=== PATIENT | female | born 1955 | race Caucasian/White ===

== ENCOUNTER 2021-03-29 12:07 | Outpatient (REF) | payer MEDICARE, SELFPAY ==
--- NOTE | ~2021-03-29 | XR_ITS ---
EXAMINATION: XR KNEE, RIGHT CLINICAL INFORMATION: Pain in right knee. COMPARISON: None TECHNIQUE: Upright AP and lateral views of the right knee. FINDINGS: There is no fracture or dislocation. There is a trace joint effusion. There is a small enthesophyte at the quadriceps insertion site on the patella. There are no arthritic changes. XR/XR knee RT 2V IMPRESSION: Trace joint effusion. No arthritic changes.
[2021-03-29 14:20] LABS: Alanine Aminotransferase 15 U/L (0-31); Albumin Level 4.4 g/dL (3.5-5.0); Alkaline Phosphatase 100 U/L (39-117); Anion Gap 14 (12-20); Aspartate Amino Transferase 16 U/L (5-31); Bilirubin Total 0.7 mg/dL (0.0-1.0); Blood Urea Nitrogen 20 mg/dL (9-16); Calcium 9.3 mg/dL (8.4-10.2); Carbon Dioxide 24 mmol/L (22-29); Chloride 108 mmol/L (96-108); Cholesterol 259 mg/dL; Estimated Glomerular Filt Rate > 60; Glucose Fasting 88 mg/dL (60-99); HDL Cholesterol 50 mg/dL; LDL Cholesterol Calculated 179 mg/dl; Potassium 4.7 mmol/L (3.3-5.1); Sodium 141 mmol/L (135-145); Total Protein 7.5 g/dL (6.5-8.0); Triglycerides 152 mg/dL
[2021-03-29 14:52] LABS: Folate > 20.0 ng/mL (> or = 4.0); Vitamin B12 > 2000 pg/mL (200-900)
== END 2021-03-29 12:08 | disposition home or self-care (01) ==
LOC: HO.HMGCLDS 12:07
PROVIDERS: PCP Internal Medicine; Visit Provider Internal Medicine
DX: M25.561 Pain in right knee (principal); E03.9 Hypothyroidism, unspecified; E78.5 Hyperlipidemia, unspecified; F41.9 Anxiety disorder, unspecified; I10 Essential (primary) hypertension
CPT/HCPCS: 36415; 73560; 80053; 80061; 82607; 82746

== ENCOUNTER 2022-03-20 12:14 | Outpatient (REF) | payer MEDICARE, SELFPAY ==
[2022-03-20 13:47] LABS: MANUAL DIFF FLAG NO
[2022-03-20 13:58] LABS: Basophils Absolute Auto 0.1 X10*3/uL (0.0-0.2); Basophils Percent Auto 0.7 % (0-2); Eosinophils Absolute Auto 0.5 X10*3/uL (0.0-0.4); Eosinophils Percent Auto 5.3 % (0-4); Hematocrit 40.9 % (37.0-47.0); Hemoglobin 13.3 g/dl (12.0-16.0); Imm Gran Abs Auto 0.04 X10*3/uL (0.00-0.03); Imm Gran Pct Auto 0.5 % (0.0-0.4); Lymphocytes Absolute Auto 2.3 X10*3/uL (1.2-4.9); Lymphocytes Percent Auto 25.8 % (20-40); Mean Corpuscular HGB Conc 32.5 g/dl (31.0-35.0); Mean Corpuscular Hemoglobin 28.9 pg (27.0-33.0); Mean Corpuscular Volume 88.9 fL (80.0-98.0); Mean Platelet Volume 10.2 fL (9.4-12.3); Monocytes Absolute Auto 0.7 X10*3/uL (0.1-1.2); Monocytes Percent Auto 7.7 % (2-11); Neutrophils Absolute Auto 5.3 x10*3/uL (2.0-8.3); Platelet Count 416 X10*3/uL (160-400); Red Cell Distribution Width 14.7 % (11.0-16.0); White Blood Count 8.7 X10*3/uL (4.8-10.8)
[2022-03-20 15:07] LABS: Alanine Aminotransferase 14 U/L (0-31); Albumin Level 4.3 g/dL (3.5-5.0); Alkaline Phosphatase 109 U/L (39-117); Anion Gap 13 (12-20); Aspartate Amino Transferase 14 U/L (5-31); Bilirubin Total 0.7 mg/dL (0.0-1.0); Blood Urea Nitrogen 14 mg/dL (9-16); Calcium 9.3 mg/dL (8.4-10.2); Carbon Dioxide 25 mmol/L (22-29); Chloride 108 mmol/L (96-108); Estimated Glomerular Filt Rate > 60; Glucose Random 95 mg/dL (60-115); Potassium 4.1 mmol/L (3.3-5.1); Sodium 142 mmol/L (135-145); TSH reflex Free T4 1.31 uIU/mL (0.32-4.0)
[2022-03-20 17:20] LABS: B Type Natriuretic Peptide 27 pg/mL (<100)
== END 2022-03-20 12:15 | disposition home or self-care (01) ==
LOC: HO.HMGCLDS 12:14
PROVIDERS: PCP Internal Medicine; Visit Provider Internal Medicine
DX: R05.9 Cough, unspecified (principal); R06.09 Other forms of dyspnea; J44.9 Chronic obstructive pulmonary disease, unspecified
CPT/HCPCS: 36415; 80053; 83880; 84443; 85025

== ENCOUNTER 2022-11-01 09:44 | Outpatient (AMB) | payer MEDICARE, SELFPAY ==
--- NOTE | 2022-11-01 10:07 | AM.OFFWIN_ITS ---
Intake Vital Signs 11/01/22 10:10 Height 4 ft 11.5 in BP 136/78 Blood Pressure Location Rt brachial Position Sitting Pulse 108 H Pulse Source Pulse Oximeter Temp 97.6 F Temp Source Temporal Artery Scan Pulse Oximetry (%) 97 Oxygen Delivery Method Room Air Intake Visit Reasons: EP, Right knee inflammation Intake Note: Pt is here c/o right knee pain for the last week. No falls or injuries. Patient Tobacco Use Status: Current everyday Tobacco user Allergies atorvastatin [Lipitor] Allergy (Unknown, Verified 11/01/22 10:31) nausea bupropion [Wellbutrin] Allergy (Unknown, Verified 11/01/22 10:31) Rash levofloxacin [Levaquin] Allergy (Unknown, Verified 11/01/22 10:31) Rash Sulfa (Sulfonamide Antibiotics) Allergy (Unknown, Unverified 11/01/22 10:31) burning sensation red burn manuel amitriptyline Adverse Reaction (Unknown, Verified 11/01/22 10:31) headaches topiramate [Topamax] Adverse Reaction (Unknown, Verified 11/01/22 10:31) sleepiness Medication List - Last Reconciled 11/01/22 by Cristofer Mckenna MD albuterol sulfate 90 mcg/actuation (Ventolin HFA) 2 puffs PO Q6H PRN betamethasone dipropionate 0.05% topical cyanocobalamin (vitamin B-12) 100 mcg (0.1 mL) IM QWEEK ergocalciferol (vitamin D2) 1,250 mcg PO QWEEK wszhdfkqane-qcpvfvicr-pxjlnvhi 200-62.5-25 mcg (Trelegy Ellipta) 1 inh inhalation DAILY folic acid 1 mg PO DAILY meloxicam 15 mg PO DAILY metoprolol succinate ER 50 mg PO DAILY montelukast 10 mg PO DAILY ondansetron HCl 4 mg PO Q8H PRN ropinirole 0.5 mg (2 x 0.25 mg) PO BEDTIME rosuvastatin (Crestor) 10 mg PO DAILY Synthroid (levothyroxine) 88 mcg PO DAILY NS Do you need a note to return to daycare/school/sports/work: No HPI EP, Right knee inflammation HPI Details 67-year-old female presents to the office for a sick visit. Patient is reporting knee pain for the past week. Prior to the onset of pain, patient was reporting clicking sounds in the knee. Subsequently she started having pain which has gotten worse. She uses a cane for back pain. [facility] [place] Medical History (Updated 11/01/22 @ 10:18 by Cristofer Mckenna MD) Anxiety Carotid stenosis, bilateral COPD (chronic obstructive pulmonary disease) Cough Diastolic CHF DVT (deep venous thrombosis) HTN (hypertension) Hyperlipidemia Hypothyroidism Knee pain, right Leg pain Lung nodule Migraine headache with aura Tension headache Vitamin B12 deficiency Vitamin D deficiency Surgical History (Updated 04/23/22 @ 12:52 by Josee Hadley MD) H/O colonoscopy History of esophagogastroduodenoscopy (EGD) History of laryngoscopy Family History Father HTN (hypertension) Mother COPD (chronic obstructive pulmonary disease) HTN (hypertension) Social History Housing: House Patient Tobacco Use Status: Current everyday Tobacco user Tobacco use type: Cigarette Cigarettes Per Day: 4 e-Cigarette/Vaping Use: Never Used Current occupational status: retired Cognitive needs: No Hearing needs: No Vision needs: Yes Physical Exam Vital Signs: Last Vital Signs Temp 97.6 F 11/01/22 10:10 Pulse 108 H 11/01/22 10:10 BP 136/78 11/01/22 10:10 Pulse Ox 97 11/01/22 10:10 Oxygen Delivery Method Room Air 11/01/22 10:10 Extrem Other: Right knee: Suprapatellar effusion. Joint line discomfort. Pain on flexion. Assessment & Plan Assessment & Plan (1) Unilateral osteoarthritis of knee: Code(s): M17.10 - Unilateral primary osteoarthritis, unspecified knee Plan: X-ray images were personally reviewed by me. Knee brace provided. Anti- inflammatories called in. If symptoms not better to follow-up here. Coding Level of Care Code Est Pt Level 4 (52497) Diagnoses Unilateral osteoarthritis of knee M17.10
[2022-11-01 10:10] VITALS: BP 136/78; PULSE 108; TEMP 36.4; O2SAT 97
== END 2022-11-01 11:33 | disposition home or self-care (01) ==
PROVIDERS: PCP Internal Medicine; Visit Provider Internal Medicine
DX: M17.10 Unilateral primary osteoarthritis, unspecified knee (principal)
CPT/HCPCS: 99214

== ENCOUNTER 2022-11-01 10:27 | Outpatient (REF) | payer MEDICARE, SELFPAY ==
--- NOTE | ~2022-11-01 | XR_ITS ---
EXAMINATION: XR KNEE, RIGHT CLINICAL INFORMATION: Primary osteoarthritis. COMPARISON: None available. TECHNIQUE: Four views of the right knee. FINDINGS: No fracture or subluxation. Compartmental joint spaces are maintained. Enthesophyte formation of the patella. Moderate suprapatellar joint effusion. XR/XR knee RT 4V IMPRESSION: Moderate joint effusion. No significant arthritic changes.
== END 2022-11-01 10:28 | disposition home or self-care (01) ==
LOC: HO.HMGCX 10:27
PROVIDERS: PCP Internal Medicine; Visit Provider Internal Medicine
DX: M17.11 Unilateral primary osteoarthritis, right knee (principal)
CPT/HCPCS: 73564

== ENCOUNTER 2023-05-09 07:56 | Outpatient (AMB) | payer MEDICARE, SELFPAY ==
[2023-05-09 08:02] VITALS: BP 166/100; PULSE 105; O2SAT 95; BMI 34.2
--- NOTE | 2023-05-09 08:02 | MHC.PC.OV ---
Vital Signs 05/09/23 08:02 Height 4 ft 11.5 in Weight 172 lb BMI 34.2 BP 166/100 H Blood Pressure Location Lt brachial Position Sitting Pulse 105 H Pulse Source Pulse Oximeter Pulse Oximetry (%) 95 Oxygen Delivery Method Room Air Intake Visit Reasons: Followup Intake Note: Pt is here today for a follow up visit. Allergies atorvastatin [Lipitor] Allergy (Unknown, Verified 05/09/23 08:06) nausea bupropion [Wellbutrin] Allergy (Unknown, Verified 05/09/23 08:06) Rash levofloxacin [Levaquin] Allergy (Unknown, Verified 05/09/23 08:06) Rash Sulfa (Sulfonamide Antibiotics) Allergy (Unknown, Unverified 05/09/23 08:06) burning sensation red burn manuel metoprolol Adverse Reaction (Intermediate, Verified 05/09/23 15:24) Nausea amitriptyline Adverse Reaction (Unknown, Verified 05/09/23 08:06) headaches topiramate [Topamax] Adverse Reaction (Unknown, Verified 05/09/23 08:06) sleepiness Medication List - Last Reconciled 05/09/23 by Josee Hadley MD albuterol sulfate 90 mcg/actuation (Ventolin HFA) 2 puffs PO Q6H PRN betamethasone dipropionate 0.05% topical cyanocobalamin (vitamin B-12) 100 mcg (0.1 mL) IM QWEEK ergocalciferol (vitamin D2) 1,250 mcg PO QWEEK rgenovnvmfk-uvqjccnbo-uwqedroi 200-62.5-25 mcg (Trelegy Ellipta) 1 inh inhalation DAILY folic acid 1 mg PO DAILY meloxicam 15 mg PO DAILY montelukast 10 mg PO DAILY ondansetron HCl 4 mg PO Q8H PRN ropinirole 0.5 mg (2 x 0.25 mg) PO BEDTIME rosuvastatin (Crestor) 10 mg PO DAILY Synthroid (levothyroxine) 88 mcg PO DAILY NS Tobacco use date assessed: 05/09/23 Fall risk assessment: No Falls in past year Last assessed Fall Risk: 05/09/23 Dental Screening Dental Screen Date: 05/09/23 Did you have a dental visit in the last 12 months?: Yes Did you have a dental problem in the last 6 months where you did not have access to dental care?: No Was dental information given to patient?: Patient has dentist HPI Followup HPI Details Pt presents for f/u COPD, hyperlipid, hypothyroid, stable on meds. Patient is stop taking metoprolol because of nausea. [facility] Medical History Vitamin D deficiency Cough Knee pain, right DVT (deep venous thrombosis) Leg pain Vitamin B12 deficiency Carotid stenosis, bilateral Diastolic CHF Anxiety Tension headache Migraine headache with aura HTN (hypertension) Hyperlipidemia Hypothyroidism Lung nodule COPD (chronic obstructive pulmonary disease) Surgical History History of esophagogastroduodenoscopy (EGD) H/O colonoscopy History of laryngoscopy Family History Father HTN (hypertension) Mother COPD (chronic obstructive pulmonary disease) HTN (hypertension) Social History Housing: House Patient Tobacco Use Status: Current everyday Tobacco user Tobacco use type: Cigarette Cigarettes Per Day: 4 e-Cigarette/Vaping Use: Never Used Current occupational status: retired Cognitive needs: No Hearing needs: No Vision needs: Yes Questionnaire PHQ-9 Over the last 2 weeks, how often have you been bothered by any of the following problems? [id number] - PHQ-9 Billing: Patient declined-do not bill Source: Developed by Drs. Maciel Millan, Brittany Tompkins, Ashok Kendrick and colleagues, with an educational rosalia from [employer]. Thrive Questionnaire Date Thrive assessed: 05/09/23 I am a: Patient What is your living situation today?: I choose not to answer this question Within the past 12 months, did the food you bought not last and you didn't have the money to get more?: I choose not to answer this question Within the past 12 months, did you worry whether your food would run out before you got money to buy more?: I choose not to answer this question Do you have trouble paying for medicines?: I choose not to answer this question Do you have trouble getting transportation to medical appointments?: I choose not to answer this question Do you have trouble paying your heating and electricity bill?: I choose not to answer this question Do you have trouble taking care of your child, family member or friend?: I choose not to answer this question Do you have trouble with day-to-day activities such as bathing, preparing meals, shopping, managing finances, etc.?: I choose not to answer this question Are you currently unemployed and looking for a job?: I choose not to answer this question Are you interested in more education?: I choose not to answer this question THRIVE Score: 0 AUDIT C Alcohol Use Questionnaire (AUDIT-C) 1. How often do you have a drink containing alcohol?: Never 3. How often do you have six or more drinks on one occasion?: Never Total Score: 0 DEJA-7 AMB Questionnaire DEJA-7 Date DEJA - 7 assessed: 05/09/23 Source: Developed by Drs. Maciel Millan, Brittany Tompkins, Ashok Kendrick and colleagues, with an educational rosalia from [employer]. DEJA-7 Assessment Billing DEJA-7 Assessment Tool: pt declined-do not bill Review of Systems Const All systems reviewed & are unremarkable except as noted in HPI and below Reports no additional complaints Eyes Reports no additional complaints ENT Reports no additional complaints Card Reports no additional complaints Resp Reports no additional complaints GI Reports no additional complaints Reports no additional complaints Musc Reports no additional complaints Physical exam (Primary Care) Vital Signs: Last Vital Signs Pulse 105 H 05/09/23 08:02 BP 166/100 H 05/09/23 08:02 Pulse Ox 95 05/09/23 08:02 Oxygen Delivery Method Room Air 05/09/23 08:02 BMI result Body Mass Index 34.2 Tobacco/Smoking Status: Tobacco use Status Tobacco use date assessed 05/09/23 05/09/23 08:10 Patient Tobacco Use Status Current everyday Tobacco 05/09/23 08:03 Tobacco use type Cigarette 05/09/23 08:03 e-Cigarette/Vaping Use Never Used 05/09/23 08:03 Thrive Assessment: Date of Thrive Assessment Date Thrive assessed 05/09/23 05/09/23 08:11 Const General: no acute distress HENMT Head: Yes normal to inspection Ears: hearing grossly normal bilaterally Eyes General: appearance normal, both eyes and all related structures Neck Neck: Yes no lymphadenopathy and Yes supple Resp Effort & Inspection: normal respiratory effort Auscultation: clear to auscultation bilaterally Cardio Rhythm: regular rhythm Heart sounds: S1 normal heart sound present and S2 normal heart sound present GI Inspection: Yes normal to inspection Palpation (GI): Soft to palpation Percussion: Yes normal to percussion Assessment and Plan Assessment & Plan (1) Carotid stenosis, bilateral: Comment: 50-69% R, 50% L, ? 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 Patient was advised to restart statin (2) Diastolic CHF: Comment: Echo 02/2020 nl EF, diastolic dysfunction, intolerant to metoprolol Code(s): I50.30 - Unspecified diastolic (congestive) heart failure (3) Hyperlipidemia: Code(s): E78.5 - Hyperlipidemia, unspecified Plan: Restart statin (4) Hypothyroidism: Code(s): E03.9 - Hypothyroidism, unspecified Plan: Continue levothyroxine (5) COPD (chronic obstructive pulmonary disease): Comment: f/u Dr. Bryant, patient refused PFT Code(s): J44.9 - Chronic obstructive pulmonary disease, unspecified Plan: Continue Trelegy (6) Vitamin B12 deficiency: Code(s): E53.8 - Deficiency of other specified B group vitamins (7) HTN (hypertension): Code(s): I10 - Essential (primary) hypertension Plan: Start diltiazem 180 mg follow-up in 1 month Orders: Orders Complete Blood Count Auto Diff 3 Weeks E03.9 - Hypothyroidism, unspecified, E53.8 - Deficiency of other specified B group vitamins, E78.5 - Hyperlipidemia, unspecified, G43.109 - Migraine with aura, not intractable, without status migrainosus, J44.9 - Chronic obstructive pulmonary disease, unspecified Comprehensive [place]. Panel Fast 3 Weeks E03.9 - Hypothyroidism, unspecified, E53.8 - Deficiency of other specified B group vitamins, E78.5 - Hyperlipidemia, unspecified, G43.109 - Migraine with aura, not intractable, without status migrainosus, J44.9 - Chronic obstructive pulmonary disease, unspecified TSH reflex Free T4 3 Weeks E03.9 - Hypothyroidism, unspecified, E53.8 - Deficiency of other specified B group vitamins, E78.5 - Hyperlipidemia, unspecified, G43.109 - Migraine with aura, not intractable, without status migrainosus, J44.9 - Chronic obstructive pulmonary disease, unspecified Vitamin B12 and Folate 3 Weeks E03.9 - Hypothyroidism, unspecified, E53.8 - Deficiency of other specified B group vitamins, E78.5 - Hyperlipidemia, unspecified, G43.109 - Migraine with aura, not intractable, without status migrainosus, J44.9 - Chronic obstructive pulmonary disease, unspecified Vitamin D 25-OH Total 3 Weeks E03.9 - Hypothyroidism, unspecified, E53.8 - Deficiency of other specified B group vitamins, E78.5 - Hyperlipidemia, unspecified, G43.109 - Migraine with aura, not intractable, without status migrainosus, J44.9 - Chronic obstructive pulmonary disease, unspecified Lipid Panel 3 Weeks E03.9 - Hypothyroidism, unspecified, E53.8 - Deficiency of other specified B group vitamins, E78.5 - Hyperlipidemia, unspecified, G43.109 - Migraine with aura, not intractable, without status migrainosus, J44.9 - Chronic obstructive pulmonary disease, unspecified US carotid duplex BI Today I65.23 - Occlusion and stenosis of bilateral carotid arteries Medications: New albuterol sulfate 0.63 mg (3 mL) inhalation QID PRN 180 mL 1RF shortness of breath or wheezing diltiazem HCl (Cardizem CD) 180 mg PO DAILY 90 caps 0RF Refilled albuterol sulfate 90 mcg/actuation (Ventolin HFA) 2 puffs PO Q6H PRN 18 ea 5RF shortness of breath or wheezing rosuvastatin (Crestor) 10 mg PO DAILY 90 tabs 3RF Coding Level of Care Code Est Pt Level 4 (06964) Diagnoses Carotid stenosis, bilateral I65.23 Diastolic CHF I50.30 Hyperlipidemia E78.5 Hypothyroidism E03.9 COPD (chronic obstructive pulmonary disease) J44.9 Vitamin B12 deficiency E53.8 HTN (hypertension) I10
== END 2023-05-09 15:17 | disposition home or self-care (01) ==
PROVIDERS: PCP Internal Medicine; Visit Provider Internal Medicine
DX: J44.9 Chronic obstructive pulmonary disease, unspecified (principal); I50.30 Unspecified diastolic (congestive) heart failure; I65.23 Occlusion and stenosis of bilateral carotid arteries; E78.5 Hyperlipidemia, unspecified; E03.9 Hypothyroidism, unspecified; E53.8 Deficiency of other specified B group vitamins; I10 Essential (primary) hypertension
CPT/HCPCS: 99214

== ENCOUNTER 2023-06-11 07:42 | Outpatient (AMB) | payer MEDICARE, SELFPAY ==
[2023-06-11 07:50] VITALS: BP 136/68; PULSE 107; O2SAT 94; BMI 33.8
--- NOTE | 2023-06-11 07:50 | A.OFFPC_ITS ---
Vital Signs 06/11/23 07:50 Height 4 ft 11.5 in Weight 170 lb BMI 33.8 BP 136/68 Blood Pressure Location Lt brachial Position Sitting Pulse 107 H Pulse Source Pulse Oximeter Pulse Oximetry (%) 94 Oxygen Delivery Method Room Air Intake Visit Reasons: 3 weeks follow up per Dr. Hadley Intake Note: Pt is here today for her 3wks f/u Allergies atorvastatin [Lipitor] Allergy (Unknown, Verified 06/11/23 07:51) nausea bupropion [Wellbutrin] Allergy (Unknown, Verified 06/11/23 07:51) Rash levofloxacin [Levaquin] Allergy (Unknown, Verified 06/11/23 07:51) Rash Sulfa (Sulfonamide Antibiotics) Allergy (Unknown, Unverified 06/11/23 07:51) burning sensation red burn manuel metoprolol Adverse Reaction (Intermediate, Verified 06/11/23 07:51) Nausea amitriptyline Adverse Reaction (Unknown, Verified 06/11/23 07:51) headaches topiramate [Topamax] Adverse Reaction (Unknown, Verified 06/11/23 07:51) sleepiness Medication List - Last Reconciled 06/11/23 by Josee Hadley MD albuterol sulfate 90 mcg/actuation (Ventolin HFA) 2 puffs PO Q6H PRN albuterol sulfate 0.63 mg (3 mL) inhalation QID PRN betamethasone dipropionate 0.05% topical cyanocobalamin (vitamin B-12) 100 mcg (0.1 mL) IM QWEEK diltiazem HCl (Cardizem CD) 180 mg PO DAILY ergocalciferol (vitamin D2) 1,250 mcg PO QWEEK mujyqompism-fotdwdkcc-bwyveaqv 200-62.5-25 mcg (Trelegy Ellipta) 1 inh inhalation DAILY folic acid 1 mg PO DAILY meloxicam 15 mg PO DAILY montelukast 10 mg PO DAILY ondansetron HCl 4 mg PO Q8H PRN ropinirole 0.5 mg (2 x 0.25 mg) PO BEDTIME rosuvastatin (Crestor) 10 mg PO DAILY Synthroid (levothyroxine) 88 mcg PO DAILY NS Tobacco use date assessed: 05/09/23 Fall risk assessment: No Falls in past year Last assessed Fall Risk: 06/11/23 Dental Screening Dental Screen Date: 06/11/23 Did you have a dental visit in the last 12 months?: Yes Did you have a dental problem in the last 6 months where you did not have access to dental care?: Yes Was dental information given to patient?: Patient has dentist HPI 3 weeks follow up per Dr. Hadley HPI Details Patient presents for the follow-up on hypertension COPD hyperlipidemia. She reports leg cramps since restarted taking Crestor. Patient reports dyspnea on exertion but denies cough wheezing PND or orthopnea. [facility] Medical History Vitamin D deficiency Cough Knee pain, right DVT (deep venous thrombosis) Leg pain Vitamin B12 deficiency Carotid stenosis, bilateral Diastolic CHF Anxiety Tension headache Migraine headache with aura HTN (hypertension) Hyperlipidemia Hypothyroidism Lung nodule COPD (chronic obstructive pulmonary disease) Surgical History History of esophagogastroduodenoscopy (EGD) H/O colonoscopy History of laryngoscopy Family History Father HTN (hypertension) Mother COPD (chronic obstructive pulmonary disease) HTN (hypertension) Social History Housing: House Patient Tobacco Use Status: Current everyday Tobacco user Tobacco use type: Cigarette Cigarettes Per Day: 4 e-Cigarette/Vaping Use: Never Used Current occupational status: retired Cognitive needs: No Hearing needs: No Vision needs: Yes Questionnaire Thrive Questionnaire Date Thrive assessed: 05/09/23 DEJA-7 AMB Questionnaire DEJA-7 Date DEJA - 7 assessed: 05/09/23 Source: Developed by Drs. Maciel Millan, Brittany Tompkins, Ashok Kendrick and colleagues, with an educational rosalia from [employer]. Review of Systems Const All systems reviewed & are unremarkable except as noted in HPI and below Reports no additional complaints Eyes Reports no additional complaints ENT Reports no additional complaints Card Reports no additional complaints Resp Reports no additional complaints GI Reports no additional complaints Reports no additional complaints Physical exam (Primary Care) Vital Signs: Last Vital Signs Pulse 107 H 06/11/23 07:50 BP 136/68 06/11/23 07:50 Pulse Ox 94 06/11/23 07:50 Oxygen Delivery Method Room Air 06/11/23 07:50 BMI result Body Mass Index 33.8 Tobacco/Smoking Status: Tobacco use Status Tobacco use date assessed 05/09/23 06/11/23 07:51 Patient Tobacco Use Status Current everyday Tobacco 06/11/23 07:51 Tobacco use type Cigarette 06/11/23 07:51 e-Cigarette/Vaping Use Never Used 06/11/23 07:51 Thrive Assessment: Date of Thrive Assessment Date Thrive assessed 05/09/23 06/11/23 07:51 Const General: no acute distress HENMT Head: Yes normal to inspection Neck Neck: Yes no lymphadenopathy and Yes supple Resp Effort & Inspection: normal respiratory effort Auscultation: crackles (at bases) Cardio Rhythm: regular rhythm Heart sounds: S1 normal heart sound present and S2 normal heart sound present GI Inspection: Yes normal to inspection Palpation (GI): Soft to palpation Percussion: Yes normal to percussion Auscultation: normal bowel sounds Assessment and Plan Assessment & Plan (1) Carotid stenosis, bilateral: Comment: 50-69% R, 50% L, ? 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, unchanged 01/2018 Code(s): I65.23 - Occlusion and stenosis of bilateral carotid arteries Plan: repeat carotid ultrasound, (2) Diastolic CHF: Comment: Echo 02/2020 nl EF, diastolic dysfunction, intolerant to metoprolol Code(s): I50.30 - Unspecified diastolic (congestive) heart failure Plan: Patient declined having repeat echocardiogram because she can not leave her mother home alone for more than a few hours (3) Lung nodule: Comment: Multiple upper lobes bilateral lung nodules, CT 01/2020 at [facility], 6 mths repeat recommended, CT 04/04 STABLE, RECHECK 1 YR Code(s): R91.1 - Solitary pulmonary nodule Plan: Repeat CT of the chest at [facility] for 1 year follow-up (4) HTN (hypertension): Code(s): I10 - Essential (primary) hypertension Plan: Increase diltiazem to 240 mg follow-up in 2 months (5) Hyperlipidemia: Code(s): E78.5 - Hyperlipidemia, unspecified Plan: Change Crestor to every other day and patient was advised to take CO Q10 supplement (6) Hypothyroidism: Code(s): E03.9 - Hypothyroidism, unspecified Plan: Continue Synthroid Orders: Orders CT chest wo IV con Today R91.1 - Solitary pulmonary nodule US carotid duplex BI Today I65.23 - Occlusion and stenosis of bilateral carotid arteries Coding Level of Care Code Est Pt Level 4 (39082) Diagnoses Carotid stenosis, bilateral I65.23 Diastolic CHF I50.30 Lung nodule R91.1 HTN (hypertension) I10 Hyperlipidemia E78.5 Hypothyroidism E03.9
== END 2023-06-11 08:46 | disposition home or self-care (01) ==
PROVIDERS: PCP Internal Medicine; Visit Provider Internal Medicine
DX: I11.0 Hypertensive heart disease with heart failure (principal); I50.30 Unspecified diastolic (congestive) heart failure; I65.23 Occlusion and stenosis of bilateral carotid arteries; R91.1 Solitary pulmonary nodule; E78.5 Hyperlipidemia, unspecified; E03.9 Hypothyroidism, unspecified
CPT/HCPCS: 99214

== ENCOUNTER 2023-07-17 10:22 | Outpatient (AMB) | payer MEDICARE, SELFPAY ==
[2023-07-17 10:28] VITALS: BP 108/68; BMI 33.8
--- NOTE | 2023-07-17 10:28 | MHC.OFFVIS ---
Intake Vital Signs 07/17/23 10:28 07/17/23 10:41 Height 4 ft 11.5 in Weight 170 lb BMI 33.8 BP 108/68 112/70 Blood Pressure Location Rt brachial Lt brachial Position Sitting Sitting Intake Visit Reasons: MEDICATION AIDE/PCP ref for carotid stenosis URGENT Intake Note: MEDICATION AIDE/ referred for carotid stenosis s/p Carotid US 06/30/23. She has been getting this testing done for years at [facility]. 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 Accompanied by: Self / Same As Patient Allergies atorvastatin [Lipitor] Allergy (Unknown, Verified 07/17/23 10:34) nausea bupropion [Wellbutrin] Allergy (Unknown, Verified 07/17/23 10:34) Rash levofloxacin [Levaquin] Allergy (Unknown, Verified 07/17/23 10:34) Rash Sulfa (Sulfonamide Antibiotics) Allergy (Unknown, Unverified 07/17/23 10:34) burning sensation red burn manuel metoprolol Adverse Reaction (Intermediate, Verified 07/17/23 10:34) Nausea amitriptyline Adverse Reaction (Unknown, Verified 07/17/23 10:34) headaches topiramate [Topamax] Adverse Reaction (Unknown, Verified 07/17/23 10:34) sleepiness HPI MEDICATION AIDE/PCP ref for carotid stenosis URGENT HPI Details Very pleasant 68-year-old female presents for evaluation regarding carotid stenosis. She had actually been surveilled in the past regarding this and most recently had a carotid ultrasound performed at [facility]. She is asymptomatic from this. She denies any lateralizing signs or symptoms, speech disturbances, visual deficits. She reports she has been doing fairly well in cares for her 88-year-old mother. She smokes about 4-5 cigarettes daily and is a nondiabetic. She now presents to us for vascular evaluation with noninvasive testing from [facility]. [facility] Medical History Vitamin D deficiency Cough Knee pain, right DVT (deep venous thrombosis) Leg pain Vitamin B12 deficiency Carotid stenosis, bilateral Diastolic CHF Anxiety Tension headache Migraine headache with aura HTN (hypertension) Hyperlipidemia Hypothyroidism Lung nodule COPD (chronic obstructive pulmonary disease) Surgical History History of esophagogastroduodenoscopy (EGD) H/O colonoscopy History of laryngoscopy Family History Father HTN (hypertension) Mother COPD (chronic obstructive pulmonary disease) HTN (hypertension) Social History Housing: House Patient Tobacco Use Status: Current everyday Tobacco user Tobacco use type: Cigarette Cigarettes Per Day: 4 e-Cigarette/Vaping Use: Never Used Current occupational status: retired Cognitive needs: No Hearing needs: No Vision needs: Yes Review of Systems Const All systems reviewed & are unremarkable except as noted in HPI and below Reports no additional complaints ENT Reports Normal hearing present Card Denies chest pain, Denies chest pain at rest, Denies chest pain with activity and Denies pedal edema Resp Denies cough GI Denies abdominal pain Musc Denies abnormal gait, Denies muscle cramps and Denies radiating pain into limb Skin/Breast Denies skin ulcer and Denies wounds Neuro Reports Normal hearing present and Denies abnormal gait Psych Reports no additional complaints Physical Exam Vital Signs: Last Vital Signs BP 112/70 07/17/23 10:41 BMI result Body Mass Index 33.8 Const General: cooperative, healthy appearing and comfortable Orientation/consciousness: oriented to person, oriented to place and oriented to time HEENT Head: Yes normal to inspection Neck Neck: Yes normal visual inspection Carotids: no bruits Chest Chest palpation & inspection: normal inspection of the chest Resp Effort & Inspection: normal respiratory effort and able to speak in complete sentences Auscultation: clear to auscultation bilaterally, no crackles, no rales, no rhonchi and no wheezes Cardio Rate: regular rate Rhythm: regular rhythm Heart sounds: S1 normal heart sound present and S2 normal heart sound present Bruits: no carotid bruits Peripheral pulses: Peripheral pulses 2+ throughout GI Inspection: Yes normal to inspection Skin Wounds: no wounds Hair: normal Neuro General: oriented to person, oriented to place and oriented to time Cranial nerves: Yes CN's II-XII intact bilaterally and Yes Normal hearing present Cognition (Neuro): normal cognition Motor exam (neuro): 5/5 motor strength present throughout Extrem Other: venous exam: No significant superficial varicosities or spider telangiectasias, minimal edema General: No clubbing, No cyanosis and No edema Psych Appearance: grossly normal Mental Status: mental status grossly normal Speech and movement: Normal speech and movement present Results Reviewed Results Reviewed: Noninvasive testing from [facility] dated 06/30/2023 demonstrates right-sided stenosis of 70-89% with a peak systolic velocity of 247.6 with a ratio of 3.5 and left-sided stenosis of 50-69%. Written report reviewed only. No accessed images. Assessment & Plan Assessment & Plan (1) Carotid stenosis, bilateral: Code(s): I65.23 - Occlusion and stenosis of bilateral carotid arteries Plan: In short patient has high-grade right carotid stenosis. We did discuss the pathophysiology of carotid disease along with signs and symptoms of a stroke. We also discussed risk factor modification including smoking cessation. I have taken the liberty of ordering a CT angiogram to better elucidate the true degree of stenosis and verify the anatomy. She will follow up with us after testing. Thank you for allowing us to assist in her care. If there are any questions or concerns please do not hesitate to contact us. Orders: Orders Blood Urea Nitrogen Today I65.23 - Occlusion and stenosis of bilateral carotid arteries Creatinine Today I65.23 - Occlusion and stenosis of bilateral carotid arteries Coding Level of Care Code New Pt Level 4 (46549) Diagnoses Carotid stenosis, bilateral I65.23
[2023-07-17 10:41] VITALS: BP 112/70
== END 2023-07-17 11:05 | disposition home or self-care (01) ==
PROVIDERS: PCP Internal Medicine; Visit Provider Surgery Vascular Surgery
DX: I65.23 Occlusion and stenosis of bilateral carotid arteries (principal)
CPT/HCPCS: 99203

== ENCOUNTER 2023-07-17 10:22 | Outpatient (REF) | payer MEDICARE, SELFPAY ==
[2023-07-17 12:38] LABS: Blood Urea Nitrogen 20 mg/dL (9-16); Estimated Glomerular Filt Rate > 60
== END 2023-07-17 10:23 | disposition home or self-care (01) ==
LOC: HO.LAB 10:22
PROVIDERS: PCP Internal Medicine; Visit Provider Surgery Vascular Surgery
DX: I65.23 Occlusion and stenosis of bilateral carotid arteries (principal)
CPT/HCPCS: 36415; 82565; 84520; 99202

== ENCOUNTER 2023-07-31 14:28 | Outpatient (AMB) | payer MEDICARE, SELFPAY ==
[2023-07-31 14:38] VITALS: BMI 33.8
--- NOTE | 2023-07-31 14:38 | A.OFFVIS_ITS ---
Vital Signs 07/31/23 14:38 Height 4 ft 11.5 in Weight 170 lb BMI 33.8 Intake Visit Reasons: Follow up CTA Neck/carotid 07/29/23 Intake Note: follow up CTA Neck 07/29/23 @ [facility]. No changes Accompanied by: Self / Same As Patient Allergies atorvastatin [Lipitor] Allergy (Unknown, Verified 07/31/23 14:43) nausea bupropion [Wellbutrin] Allergy (Unknown, Verified 07/31/23 14:43) Rash levofloxacin [Levaquin] Allergy (Unknown, Verified 07/31/23 14:43) Rash Sulfa (Sulfonamide Antibiotics) Allergy (Unknown, Unverified 07/31/23 14:43) burning sensation red burn manuel metoprolol Adverse Reaction (Intermediate, Verified 07/31/23 14:43) Nausea amitriptyline Adverse Reaction (Unknown, Verified 07/31/23 14:43) headaches topiramate [Topamax] Adverse Reaction (Unknown, Verified 07/31/23 14:43) sleepiness HPI HPI Follow up CTA Neck/carotid 07/29/23: Details: Very pleasant 68-year-old female presents for evaluation regarding carotid stenosis. She actually been surveilled in the past and had an ultrasound performed at [facility]. This was concerning for high-grade stenosis and subsequently underwent CT angiogram of the neck. Of note she does get short of breath after walking about a block. She does have a remote history of seeing [facility] in the past but has not seen them in several years. She now presents for follow-up evaluation. [facility] Medical History Vitamin D deficiency Cough Knee pain, right DVT (deep venous thrombosis) Leg pain Vitamin B12 deficiency Carotid stenosis, bilateral Diastolic CHF Anxiety Tension headache Migraine headache with aura HTN (hypertension) Hyperlipidemia Hypothyroidism Lung nodule COPD (chronic obstructive pulmonary disease) Surgical History History of esophagogastroduodenoscopy (EGD) H/O colonoscopy History of laryngoscopy Family History Father HTN (hypertension) Mother COPD (chronic obstructive pulmonary disease) HTN (hypertension) Social History Housing: House Patient Tobacco Use Status: Current everyday Tobacco user Tobacco use type: Cigarette Cigarettes Per Day: 4 e-Cigarette/Vaping Use: Never Used Current occupational status: retired Cognitive needs: No Hearing needs: No Vision needs: Yes Review of Systems Const All systems reviewed & are unremarkable except as noted in HPI and below Reports no additional complaints ENT Reports Normal hearing present Card Denies chest pain, Denies chest pain at rest, Denies chest pain with activity and Denies pedal edema Resp Denies cough GI Denies abdominal pain Musc Denies abnormal gait, Denies muscle cramps and Denies radiating pain into limb Skin/Breast Denies skin ulcer and Denies wounds Neuro Reports Normal hearing present and Denies abnormal gait Psych Reports no additional complaints Physical Exam Vital Signs: BMI result Body Mass Index 33.8 Const General: cooperative, healthy appearing and comfortable Orientation/consciousness: oriented to person, oriented to place and oriented to time HEENT Head: Yes normal to inspection Neck Neck: Yes normal visual inspection Carotids: no bruits Chest Chest palpation & inspection: normal inspection of the chest Resp Effort & Inspection: normal respiratory effort and able to speak in complete sentences Auscultation: clear to auscultation bilaterally, no crackles, no rales, no rhonchi and no wheezes Cardio Rate: regular rate Rhythm: regular rhythm Heart sounds: S1 normal heart sound present and S2 normal heart sound present Bruits: no carotid bruits Peripheral pulses: Peripheral pulses 2+ throughout GI Inspection: Yes normal to inspection Skin Wounds: no wounds Hair: normal Neuro General: oriented to person, oriented to place and oriented to time Cranial nerves: Yes CN's II-XII intact bilaterally and Yes Normal hearing present Cognition (Neuro): normal cognition Motor exam (neuro): 5/5 motor strength present throughout Extrem Other: venous exam: No significant superficial varicosities or spider telangiectasias, minimal edema General: No clubbing, No cyanosis and No edema Psych Appearance: grossly normal Mental Status: mental status grossly normal Speech and movement: Normal speech and movement present Results Reviewed Results Reviewed: CT angiogram of neck performed on 07/29/2023 demonstrates right-sided common carotid 75% stenosis. Written report and images were reviewed. Carotid ultrasound dated 06/30/2023 demonstrates a ratio of 3.5. Assessment & Plan Assessment & Plan (1) Carotid stenosis, right: Code(s): I65.21 - Occlusion and stenosis of right carotid artery Category: Medical Plan: In short patient has high-grade right carotid stenosis. Patient will require right carotid endarterectomy. Risks benefits complications were discussed in detail including but not limited to bleeding infection stroke and . She agreed and would like to move forward. She will require cardiac risk stratification. She does have a remote history of seeing [facility] several years prior but would like to transfer her care here. In addition she will need pulmonary risk stratification as well as she does use inhalers and has difficulty walking more than a block. Thank you for allowing us to assist in her care. If there are any questions or concerns please do not hesitate to contact us
== END 2023-07-31 15:29 | disposition home or self-care (01) ==
PROVIDERS: PCP Internal Medicine; Visit Provider Surgery Vascular Surgery
DX: I65.21 Occlusion and stenosis of right carotid artery (principal)
CPT/HCPCS: 99214

== ENCOUNTER → 2023-07-31 14:28 | Outpatient (BNVA) | payer MEDICARE, SELFPAY | PROVIDERS: PCP Internal Medicine; Visit Provider Surgery Vascular Surgery | DX: I65.21 Occlusion and stenosis of right carotid artery (principal); I11.0 Hypertensive heart disease with heart failure; I50.30 Unspecified diastolic (congestive) heart failure | CPT/HCPCS: 99212 ==

== ENCOUNTER 2023-08-07 10:03 | Outpatient (AMB) | payer MEDICARE, SELFPAY ==
[2023-08-07 10:17] VITALS: BP 120/64; PULSE 87; BMI 33.7
--- NOTE | 2023-08-07 10:17 | A.OFFVIS_ITS ---
Vital Signs 08/07/23 10:17 Height 4 ft 11.5 in Weight 169 lb 12.095 oz BMI 33.7 BP 120/64 Blood Pressure Location Lt brachial Position Sitting Pulse 87 Intake Visit Reasons: [employer]/ [employer]/ clear r carotid Tube Mounter Required: No Accompanied by: Self / Same As Patient Allergies atorvastatin [Lipitor] Allergy (Unknown, Verified 07/31/23 14:43) nausea bupropion [Wellbutrin] Allergy (Unknown, Verified 07/31/23 14:43) Rash levofloxacin [Levaquin] Allergy (Unknown, Verified 07/31/23 14:43) Rash Sulfa (Sulfonamide Antibiotics) Allergy (Unknown, Unverified 07/31/23 14:43) burning sensation red burn manuel metoprolol Adverse Reaction (Intermediate, Verified 07/31/23 14:43) Nausea amitriptyline Adverse Reaction (Unknown, Verified 07/31/23 14:43) headaches topiramate [Topamax] Adverse Reaction (Unknown, Verified 07/31/23 14:43) sleepiness Medication List - Last Reconciled 08/07/23 by Ramsey Arguello MD albuterol sulfate 0.63 mg (3 mL) inhalation QID PRN aspirin 81 mg PO DAILY betamethasone dipropionate 0.05% topical cyanocobalamin (vitamin B-12) 100 mcg (0.1 mL) IM QWEEK diltiazem HCl CD (Cardizem CD) 180 mg PO DAILY ergocalciferol (vitamin D2) 1,250 mcg PO QWEEK evolocumab (Repatha SureClick) 140 mg subcut Q2W otgeaovrihy-fbpzcuqwm-ikahidsa 200-62.5-25 mcg (Trelegy Ellipta) 1 inh inhalation DAILY folic acid 1 mg PO DAILY meloxicam 15 mg PO DAILY montelukast 10 mg PO DAILY ropinirole 0.5 mg (2 x 0.25 mg) PO BEDTIME rosuvastatin (Crestor) 10 mg PO DAILY Synthroid (levothyroxine) 88 mcg PO DAILY NS Ventolin HFA 90 mcg/actuation (albuterol sulfate) 2 puffs PO Q6H PRN NS HPI Comments Details: Leah is here for consultation regarding preoperative risk stratification for carotid endarterectomy. She states she is seen someone in [facility] many years ago but not entirely clear why. Nothing in the last few years. She does not have any known coronary disease, myocardial infarction or cardiomyopathy. No specific cardiac symptoms like angina within limits of her activity. She seems to walk with a cane sometimes but not always. On level ground, generally okay but with going up stairs or inclines she may have difficulty. Also has COPD. [facility] Medical History (Reviewed 07/31/23 @ 14:44 by Nikky Sterling [facility]) Vitamin D deficiency Cough Knee pain, right DVT (deep venous thrombosis) Leg pain Vitamin B12 deficiency Carotid stenosis, bilateral Diastolic CHF Anxiety Tension headache Migraine headache with aura HTN (hypertension) Hyperlipidemia Hypothyroidism Lung nodule COPD (chronic obstructive pulmonary disease) Surgical History History of esophagogastroduodenoscopy (EGD) H/O colonoscopy History of laryngoscopy Family History Father HTN (hypertension) Mother COPD (chronic obstructive pulmonary disease) HTN (hypertension) Social History Housing: House Patient Tobacco Use Status: Current everyday Tobacco user Tobacco use type: Cigarette Cigarettes Per Day: 4 e-Cigarette/Vaping Use: Never Used Current occupational status: retired Cognitive needs: No Hearing needs: No Vision needs: Yes Review of Systems Const Denies chills, Denies fatigue, Denies fever(s), Denies frequent falls, Denies weakness, Denies weight gain and Denies weight loss ENT Denies dizziness Card Denies chest pain, Denies leg edema, Denies lightheadedness, Denies palpita tions, Denies dyspnea and Denies dyspnea on exertion Resp Denies cough, Denies dyspnea and Denies dyspnea on exertion GI Denies hematochezia Musc Denies abnormal gait, Denies muscle weakness, Denies numbness, Denies radiating pain into limb and Denies tingling Neuro Denies abnormal gait, Denies dizziness, Denies frequent falls, Denies numbness, Denies tingling and Denies weakness Endo Denies fatigue and Denies palpitations Physical Exam Vital Signs: Last Vital Signs Pulse 87 08/07/23 10:17 BP 120/64 08/07/23 10:17 BMI result Body Mass Index 33.7 Const General: comfortable and no acute distress Orientation/consciousness: patient oriented x3 HEENT Other: Unremarkable Head: Yes normal to inspection Neck Neck: Yes normal visual inspection Chest Chest palpation & inspection: normal inspection of the chest Resp Auscultation: clear to auscultation bilaterally Cardio Palpation: normal PMI Heart sounds: S1 normal heart sound present, S2 normal heart sound present, no gallops, no murmurs and no rubs GI Palpation (GI): Soft to palpation Back/Spine/Pelvis Other: unremarkable Skin General skin exam: no rashes or lesions noted Neuro General: patient oriented x3 Extrem General: Yes normal to inspection Psych Mental Status: mental status grossly normal Office Procedures EKG Details: EKG with sinus rhythm at 87/Min; no significant ST-T changes and otherwise unremarkable. [place]. [id number], Complete Assessment & Plan Assessment & Plan (1) Preoperative cardiovascular examination: Code(s): Z01.810 - Encounter for preprocedural cardiovascular examination Category: Medical (2) Carotid stenosis, bilateral: Code(s): I65.23 - Occlusion and stenosis of bilateral carotid arteries Category: Medical Plan Chronic smoker, dyslipidemia, chest CT showing moderate to severe coronary artery calcification as well as moderate atherosclerotic calcification in the aorta/great vessels. CTA of the neck shows 60-70% stenosis of the distal right common carotid artery; 60-70% stenosis of the proximal left internal carotid artery. Based on risk factors and established CAD seen on CT scan, obtain an echocardiogram and stress test. She is walking with a cane and I doubt she will be able to exercise on the treadmill. May get pharmacological stress test with Lexiscan. Addendum can be made after the above. Orders: Orders CA lexiscan stress w keon Today I20.9 - Angina pectoris, unspecified, Z01.810 - Encounter for preprocedural cardiovascular examination CA echo transthoracic complete Today I25.10 - Atherosclerotic heart disease of [place] coronary artery without angina pectoris, Z.810 - Encounter for preprocedural cardiovascular examination NM cardiolite stress test Today R07.2 - Precordial pain, Z.810 - Encounter for preprocedural cardiovascular examination Coding Level of Care Code New Pt Level 4 (79053) Diagnoses Preoperative cardiovascular examination Z.810 Carotid stenosis, bilateral I65.23 CPT Codes EKG - CPT: 05417-[id number], Complete ([id number])
== END 2023-08-07 10:44 | disposition home or self-care (01) ==
PROVIDERS: PCP Internal Medicine; Visit Provider Internal Medicine
DX: I65.23 Occlusion and stenosis of bilateral carotid arteries (principal); Z01.810 Encounter for preprocedural cardiovascular examination
CPT/HCPCS: 93010; 99204

== ENCOUNTER → 2023-08-07 10:03 | Outpatient (BNVA) | payer MEDICARE, SELFPAY | PROVIDERS: PCP Internal Medicine; Visit Provider Internal Medicine | DX: Z01.810 Encounter for preprocedural cardiovascular examination (principal); I65.23 Occlusion and stenosis of bilateral carotid arteries; I25.10 Atherosclerotic heart disease of native coronary artery without angina pectoris; F17.210 Nicotine dependence, cigarettes, uncomplicated | CPT/HCPCS: 93005; 99202 ==

== ENCOUNTER 2023-08-07 11:10 | Outpatient (AMB) | payer MEDICARE, SELFPAY ==
[2023-08-07 11:13] VITALS: BP 126/78; PULSE 97; TEMP 36.4; O2SAT 96; BMI 33.8
--- NOTE | 2023-08-07 11:13 | MHC.OFFWIV ---
Intake Vital Signs 08/07/23 11:13 Height 4 ft 11.5 in Weight 170 lb BMI 33.8 BP 126/78 Blood Pressure Location Lt brachial Position Sitting Pulse 97 Pulse Source Pulse Oximeter Temp 97.6 F Temp Source Temporal Artery Scan Pulse Oximetry (%) 96 Oxygen Delivery Method Room Air Intake Visit Reasons: Ep rash Intake Note: pt is here today for rash stared yesterday4 Patient Tobacco Use Status: Current everyday Tobacco user Allergies atorvastatin [Lipitor] Allergy (Unknown, Verified 08/07/23 11:20) nausea bupropion [Wellbutrin] Allergy (Unknown, Verified 08/07/23 11:20) Rash levofloxacin [Levaquin] Allergy (Unknown, Verified 08/07/23 11:20) Rash Sulfa (Sulfonamide Antibiotics) Allergy (Unknown, Verified 08/07/23 11:20) burning sensation red burn manuel metoprolol Adverse Reaction (Intermediate, Verified 08/07/23 11:20) Nausea amitriptyline Adverse Reaction (Unknown, Verified 08/07/23 11:20) headaches topiramate [Topamax] Adverse Reaction (Unknown, Verified 08/07/23 11:20) sleepiness Do you need a note to return to daycare/school/sports/work: No HPI HPI Comments History of Present Illness Details 68 y/o female patient who presents to walk in clinic with c/o Rash [facility] Medical History Vitamin D deficiency Cough Knee pain, right DVT (deep venous thrombosis) Leg pain Vitamin B12 deficiency Carotid stenosis, bilateral Diastolic CHF Anxiety Tension headache Migraine headache with aura HTN (hypertension) Hyperlipidemia Hypothyroidism Lung nodule COPD (chronic obstructive pulmonary disease) Surgical History History of esophagogastroduodenoscopy (EGD) H/O colonoscopy History of laryngoscopy Family History Father HTN (hypertension) Mother COPD (chronic obstructive pulmonary disease) HTN (hypertension) Social History Housing: House Patient Tobacco Use Status: Current everyday Tobacco user Tobacco use type: Cigarette Cigarettes Per Day: 4 e-Cigarette/Vaping Use: Never Used Current occupational status: retired Cognitive needs: No Hearing needs: No Vision needs: Yes Physical Exam Vital Signs: Last Vital Signs Temp 97.6 F 08/07/23 11:13 Pulse 97 08/07/23 11:13 BP 126/78 08/07/23 11:13 Pulse Ox 96 08/07/23 11:13 Oxygen Delivery Method Room Air 08/07/23 11:13 BMI result Body Mass Index 33.8 Const General: comfortable and no acute distress Orientation/consciousness: patient oriented x3 Skin Rashes: rashes noted (erythematous hives upper arms and torso) Neuro General: patient oriented x3, gait normal and moves all extremities Psych Speech and movement: Normal speech and movement present Assessment & Plan Assessment & Plan (1) Dermatitis: Code(s): L30.9 - Dermatitis, unspecified Plan: - Oral and topical steroids - Hydroxyzine for itching - Moisturize skin Medications: New hydroxyzine HCl 25 mg PO TID PRN 30 tabs 0RF itching L30.9 - Dermatitis, unspecified triamcinolone acetonide 0.1% 1 appl topical BID 30 grams 0RF RASH L30.9 - Dermatitis, unspecified prednisone 50 mg PO DAILY 5 tabs 0RF rash 5 days L30.9 - Dermatitis, unspecified Discontinued ergocalciferol (vitamin D2) Discontinued Reason: Patient Completed Course 1,250 mcg PO QWEEK 12 caps 3RF Coding Level of Care Code Est Pt Level 3 (78437) Diagnoses Dermatitis L30.9 Time Spent (min) 15
== END 2023-08-07 12:14 | disposition home or self-care (01) ==
PROVIDERS: PCP Internal Medicine; Visit Provider Nurse Practitioner Family
DX: L30.9 Dermatitis, unspecified (principal)
CPT/HCPCS: 99213

== ENCOUNTER → 2023-08-11 09:29 | Outpatient (REF) | payer MEDICARE, SELFPAY ==
--- NOTE | ~2023-08-11 | NM_ITS ---
Myocardial perfusion study Indication: Precordial chest pain to evaluate for myocardial ischemia Technique: The patient was brought in for a Lexiscan perfusion study on 08/11/2023. Patient performed low-level exercise and was injected 0.4 mg of Lexiscan intravenously. Within a minute of injection, 30 mCi of sestamibi was given intravenously. Images were obtained using the SPECT gamma camera interlaced with the gating device. Images were obtained in supine position. Resting perfusion study was performed on 08/13/1999. Patient was administered 30 mCi of sestamibi intravenously at rest. Images were then obtained in supine position. Images obtained with and without CT attenuation. 116 mGy-cm. Images were processed with the software and compared side to side in short axis, horizontal long axis and vertical long axis views. Findings: The stress perfusion study showed non attenuated images show normal uptake of radiotracer in all segments. Attenuation corrected images show minimally reduced uptake in the apex of the LV myocardium.. The gated study shows normal LV systolic function with visually estimated LVEF of greater than 60%. LV cavity is normal in size. The gated study shows normal systolic wall thickening and contraction of segments. Resting study shows no change in perfusion. Gating at rest reveals normal systolic wall motion with ejection fraction at greater than 60%. The findings are consistent with normal myocardial perfusion. NM/NM cardiolite stress test Impression: 1. Myocardial perfusion imaging study shows normal myocardial 2. Gated LVEF is greater than 60% 3. Transient ischemic dilatation not present EKG is nondiagnostic for ischemia
--- NOTE | 2023-08-11 09:38 | CA_ITS ---
Acquisition Time: 2023-08-11 09:52:13 Total Exercise Time: 00:02:00 Test Indications: PRE OP Medications: Protocol: LEXISCAN Max HR: 122 BPM 79% of Pred: 153 BPM Max BP: 140/072 mmHG Max Work Load: 1.0 METS Pharmacological stress test while sitting and kicking her legs, without anginal symptoms, without arrhythmias, with normotensive response to injection, with nondiagnoisitic EKGs. Aminophylline 75mg IVP given to reverse Lexiscan. Nuclear images pending. Test reviewed with Dr. Arguello. Referred By: Ramsey Arguello Overread By: Marietta Mooney
== END ==
LOC: HO.CARD 09:29
PROVIDERS: PCP Internal Medicine; Visit Provider Internal Medicine
DX: Z01.810 Encounter for preprocedural cardiovascular examination (principal); R07.2 Precordial pain; I20.9 Angina pectoris, unspecified
CPT/HCPCS: 78452; 93017; A9500; J0280; J2785

== ENCOUNTER → 2023-08-11 09:38 | Outpatient (BNV) | payer MEDICARE, SELFPAY | PROVIDERS: PCP Internal Medicine; Visit Provider Nurse Practitioner | DX: R07.2 Precordial pain (principal) | CPT/HCPCS: 78452; 93016; 93018 ==

== ENCOUNTER → 2023-08-13 08:24 | Outpatient (REF) | payer MEDICARE, SELFPAY ==
--- NOTE | 2023-08-13 08:28 | CA_ITS ---
Transthoracic Echocardiogram Patient (Last, First, Middle): Leah Finch A Gender: Female Date of : 1955 Age: 68 Procedure Date: 08/13/2023 Procedure Type: Transthoracic Echocardiogram Location: OP Height: 149.86 cm Weight: 75.75 kg BSA: 1.71 m2 Heart Rate: bpm BP: 156 / 64 mmHg Mid Level Clinician: KAROLINE Referring MD: Ramsey Arguello MD Symptoms: I25.10 - Atherosclerotic heart disease of [place] coronary artery without... Study Quality: Fair ECG Rhythm: Sinus Conclusions: - The left ventricular systolic function is normal. The calculated ejection fraction is 60% by biplane method. - No obvious valvular pathology seen on this study. Findings Left Ventricle Normal left ventricular cavity size. There is normal left ventricular wall thickness. The left ventricular systolic function is normal. The calculated ejection fraction is 60% by biplane method. There is no evidence of regional wall motion abnormalities. Diastolic function is normal for age. Right Ventricle Normal right ventricular cavity size and systolic function. Atria Both atria are normal in size. Aortic Valve The aortic valve was not well visualized. There is no aortic valve stenosis. There is no aortic valve regurgitation. Mitral Valve There is mild mitral annular calcification. There is no mitral valve regurgitation. There is no mitral valve stenosis. Pulmonic Valve The pulmonic valve is likely normal. Tricuspid Valve There is trace tricuspid valve regurgitation. There is no evidence of pulmonary hypertension. Great Vessels The asc aorta is normal in size. Venous The inferior vena cava is normal in size and collapses greater than 50% with inspiration. Pericardium/Pleural There is no evidence of pericardial effusion. Prior Study Comparison No prior study available for comparison. Recommendations, Care & Conclusions No obvious valvular pathology seen on this study. Measurements 2D Linear Measurements IVSd: 0.97 0.6-0.9/0.6-1.0 cm LVIDd: 3.91 3.9-5.3/4.2-5.9 cm LVIDd Index: 2.29 2.4-3.2/2.2-3.1 cm/m2 LVIDs: 2.52 2.0-3.6 cm LVPWd: 1.20 0.7-1.1 cm LA Diam: 3.30 2.7-3.8/3.0-4.0 cm LAIDs Index: 1.93 1.5-2.3 cm/m2 LV Mass: 171.35 67-162/88-224 g LV Mass Index: 100.20 43-95/49-115 g/m2 LVOT Diam: 1.80 3.0+(-)1.3 cm 2D Systolic Function EF 4C: 58.10 >55% EF 2C: 62.00 >55% EF BiP: 59.60 >55% Mitral Valve MV Pk E: 0.88 MV PK A: 0.85 MV Decel Time: 205.00 E/A: 1.00 E'Lateral: 6.85 E'Medial: 5.44 E/E' Med: 16.10 E/E' Lat: 12.80 PHT: 60.00 MVA PHT: 3.67 Decel [place]: 4.29 Aortic Valve AoV Pk Jaren: 1.23 AoV Mn Jaren: 0.91 AoV VTI: 0.30 AoV Pk Grad: 6.00 Aov Mn Grad: 4.00 SYLVIA Cont.VTI: 1.13 LVOT LVOT Pk Jaren: 0.73 LVOT Mn Jaren: 0.41 LVOT VTI: 0.13 LVOT Pk Grad: 2.00 LVOT Mn Grad: 1.00 LVOT Diam: 1.80 LVOT Area: 2.54 Diastolic Function MV Pk E: 0.88 MV Pk A: 0.85 E/A: 1.00 E'Medial: 5.44 E/E' Med: 16.10 E' Laterial: 6.85 E/E' Lat: 12.80 Right Ventricle TAPSE (mm): 19.10 TVS' Jaren: 10.30 Tricuspid Valve TR Pk Jaren: 2.28 TR Pk Grad: 21.00 RA Press: 3.00 RVSP: 24.00 Great Vessels Aorta Sinus of Valsalva: 2.98 2.0-3.5 cm Ao Asc: 3.00 2.1-3.4 cm Updated in Other Vendor System with Status of Final Ramsey Arguello MD electronically signed on 08/15/2023 2:24:14 PM with status of Final
== END ==
LOC: HO.CARD 08:24
PROVIDERS: PCP Internal Medicine; Visit Provider Internal Medicine
DX: Z01.810 Encounter for preprocedural cardiovascular examination (principal); I25.10 Atherosclerotic heart disease of native coronary artery without angina pectoris
CPT/HCPCS: 93306; 99202

== ENCOUNTER → 2023-08-13 08:28 | Outpatient (BNV) | payer MEDICARE, SELFPAY | PROVIDERS: PCP Internal Medicine; Visit Provider Internal Medicine | DX: I25.10 Atherosclerotic heart disease of native coronary artery without angina pectoris (principal) | CPT/HCPCS: 93306 ==

== ENCOUNTER 2023-08-13 14:08 | Outpatient (AMB) | payer MEDICARE, SELFPAY ==
[2023-08-13 14:25] VITALS: BP 120/78; PULSE 90; O2SAT 96; BMI 34.4
--- NOTE | 2023-08-13 14:25 | A.OFFVIS_ITS ---
Vital Signs 3 08/13/23 14:25 Height 4 ft 11 in Weight 170 lb 8 oz BMI 34.4 BP 120/78 Blood Pressure Location Rt brachial Position Sitting Pulse 90 Pulse Source Pulse Oximeter Pulse Oximetry (%) 96 Oxygen Delivery Method Room Air Intake Visit Reasons: pulmonary clearance Allergies atorvastatin [Lipitor] Allergy (Unknown, Verified 08/13/23 14:28) nausea bupropion [Wellbutrin] Allergy (Unknown, Verified 08/13/23 14:28) Rash levofloxacin [Levaquin] Allergy (Unknown, Verified 08/13/23 14:28) Rash Sulfa (Sulfonamide Antibiotics) Allergy (Unknown, Verified 08/13/23 14:28) burning sensation red burn manuel metoprolol Adverse Reaction (Intermediate, Verified 08/13/23 14:28) Nausea amitriptyline Adverse Reaction (Unknown, Verified 08/13/23 14:28) headaches topiramate [Topamax] Adverse Reaction (Unknown, Verified 08/13/23 14:28) sleepiness HPI HPI pulmonary clearance : Details: Leah is a pleasant 68 year old female, current 1/4 ppd smoker with 45+ pack year history, with underlying COPD, bilateral carotid stenosis, pulmonary nodule (followed by PCP), HTN, diastolic dysfunction, and hypothyroidism. She was referred by Dr. Payton for perioperative pulmonary evaluation for upcoming right endarterectomy scheduled on 08/25/23. She was previously under the care of Dr. Bryant but was lost to follow up. Denies recent PFT. Recent chest CT, report below. She feels moderately controlled on Trelegy at this time. She reports dyspnea on moderate exertion with intermittent dry cough and wheezing. She reports possible asthma as a child, ultimately diagnosed as an adult. Denies any intubations related to respiratory distress. She denies any recent need for prednisone, antibiotics or COPD exacerbations. She reports seasonal allergies, well controlled with singulair. She denies any pertinent family history. She reports possible environmental exposures working for [employer] in the past. [facility] Medical History Vitamin D deficiency Cough Knee pain, right DVT (deep venous thrombosis) Leg pain Vitamin B12 deficiency Carotid stenosis, bilateral Diastolic CHF Anxiety Tension headache Migraine headache with aura HTN (hypertension) Hyperlipidemia Hypothyroidism Lung nodule COPD (chronic obstructive pulmonary disease) Surgical History History of esophagogastroduodenoscopy (EGD) H/O colonoscopy History of laryngoscopy Family History Father HTN (hypertension) Mother COPD (chronic obstructive pulmonary disease) HTN (hypertension) Social History Housing: House Patient Tobacco Use Status: Current everyday Tobacco user Tobacco use type: Cigarette Cigarettes Per Day: 4 e-Cigarette/Vaping Use: Never Used Current occupational status: retired Cognitive needs: No Hearing needs: No Vision needs: Yes Review of Systems Const Denies chills, Denies excessive sweating, Denies fever(s), Denies headache(s) and Denies night sweats Eyes Denies dry eyes, Denies irritation and Denies itchy eyes ENT Reports Normal hearing present, Denies headache(s), Denies nasal congestion, Denies nasal discharge, Denies post nasal drip and Denies sore throat Card Denies chest pain, Denies chest pain at rest, Denies chest pain with activity, Denies claudication, Denies leg edema, Denies orthopnea and Denies paroxysmal nocturnal dyspnea Resp Denies chest congestion, Denies excessive phlegm production, Denies pain on inspiration, Denies pain with cough and Denies stridor Musc Denies myalgias Neuro Reports Normal hearing present and Denies headache(s) Endo Denies excessive sweating Neftali/Lymph Denies lymphadenopathy Aller/Immun Denies itchy eyes and Denies seasonal rhinorrhea Physical Exam Vital Signs: Last Vital Signs Pulse 90 08/13/23 14:25 BP 120/78 08/13/23 14:25 Pulse Ox 96 08/13/23 14:25 Oxygen Delivery Method Room Air 08/13/23 14:25 BMI result Body Mass Index 34.4 Const General: cooperative, healthy appearing, comfortable, no acute distress, well developed and alert Nutritional Appearance: obese Orientation/consciousness: patient oriented x3 Limitations: no limitations HEENT Head: Yes normal to inspection, Yes normocephalic and Yes atraumatic Ears: hearing grossly normal bilaterally and external ears normal Eyes General: appearance normal, both eyes and all related structures Eyelids: Yes eyelids normal Sclerae: sclerae normal EOM: EOMs intact bilaterally Neck Neck: Yes normal visual inspection and Yes no lymphadenopathy Lymphatic: no lymphadenopathy noted Chest Chest palpation & inspection: normal inspection of the chest Resp Effort & Inspection: normal respiratory effort, able to speak in complete sentences, no audible wheezes, no cough, no stridor, not tachypneic, no tripod positioning and no use of accessory muscles Auscultation: clear to auscultation bilaterally Cardio Jugular venous distension: no JVD Rate: regular rate Rhythm: regular rhythm Skin Other: warm, dry General skin exam: no rashes or lesions noted Neuro General: patient oriented x3 Cranial nerves: Yes Normal hearing present Cognition (Neuro): normal cognition Gait exam (Neuro): Normal gait present Extrem General: Yes normal to inspection, Yes capillary refill normal, Yes no clubbing, cyanosis or edema and Yes no pedal edema Psych Appearance: grossly normal and well kempt Speech and movement: Normal speech and movement present and Clear speech present Affect: normal affect Attitude: cooperative Thought process: Normal thought process present Thought content: Normal thought content present Insight: Good insight present (Psych) Judgement: Good judgement present (Psych) Results Reviewed Results Reviewed: Assessment & Plan Assessment & Plan (1) COPD (chronic obstructive pulmonary disease): Code(s): J44.9 - Chronic obstructive pulmonary disease, unspecified Category: Medical (2) Lung nodule: Code(s): R91.1 - Solitary pulmonary nodule Category: Medical (3) Encounter for preoperative pulmonary examination: Code(s): Z01.811 - Encounter for preprocedural respiratory examination Category: Medical (4) Nicotine dependence, cigarettes, uncomplicated: Code(s): F17.210 - Nicotine dependence, cigarettes, uncomplicated Category: Medical Plan Leah presents for perioperative pulmonary evaluation for upcoming right endarterectomy with Dr. Payton. At this time, patient feels moderately controlled on current regimen. Denies any recent COPD exacerbations or URI. Respiratory exam today unremarkable. Advised to continue current regimen. Discussed importance of smoking cessation. Reviewed recent chest CT which revealed emphysema and stable pulmonary nodules. Patient with COPD, unclear severity. Will send for PFT to further risk stratify. PFT scheduled for tomorrow, will add addendum once completed with risk evaluation. All questions were answered and patient is in agreement of plan. Orders: Orders 2 PFT pulmonary function test Today J44.9 - Chronic obstructive pulmonary disease, unspecified Coding Level of Care Code New Pt Level 4 (12412) Diagnoses COPD (chronic obstructive pulmonary disease) J44.9 Lung nodule R91.1 Encounter for preoperative pulmonary examination Z01.811 Nicotine dependence, cigarettes, uncomplicated F17.210
== END 2023-08-13 15:12 | disposition home or self-care (01) ==
PROVIDERS: PCP Internal Medicine; Visit Provider Nurse Practitioner Family
DX: J44.9 Chronic obstructive pulmonary disease, unspecified (principal); R91.1 Solitary pulmonary nodule; Z01.811 Encounter for preprocedural respiratory examination; F17.210 Nicotine dependence, cigarettes, uncomplicated
CPT/HCPCS: 99204

== ENCOUNTER 2023-08-14 11:20 | Outpatient (REF) | payer MEDICARE, SELFPAY ==
--- NOTE | 2023-08-14 13:59 | PFT_ITS ---
Flows: FEV1: 67 % of predicted at 1.29 L FVC: 79 % of predicted at 1.92 L FEV1/FVC: 67 % Bronchodilator response: Absent Volumes: Total lung capacity: 91 % of predicted at 3.81 L Residual volume: 121 % of predicted at 1.92 L Slow vital capacity: 72 % of predicted at 1.89 L Expiratory reserve volume: 70 % of predicted at 0.41 L Diffusion capacity: Moderately decreased, adjusts to being mildly decreased after correction for alveolar ventilation. Impression: Moderate obstructive ventilatory defect with no bronchodilator response. Increased residual volume suggests air trapping. Decreased diffusion capacity suggests emphysema. MTDD
[2023-08-14 15:45] VITALS: PULSE 92; RESP 16; O2SAT 97
== END 2023-08-14 11:21 | disposition home or self-care (01) ==
LOC: HO.RESP 11:20
PROVIDERS: PCP Internal Medicine; Visit Provider Nurse Practitioner Family
DX: J44.9 Chronic obstructive pulmonary disease, unspecified (principal)
CPT/HCPCS: 94010; 94640; 94727; 94729

== ENCOUNTER → 2023-08-14 13:59 | Outpatient (BNV) | payer MEDICARE, SELFPAY | PROVIDERS: PCP Internal Medicine; Visit Provider Internal Medicine Pulmonary Disease | DX: J44.9 Chronic obstructive pulmonary disease, unspecified (principal) | CPT/HCPCS: 94060; 94727; 94729 ==

== ENCOUNTER 2023-08-25 06:04 | Inpatient (IN) | payer MEDICARE, SELFPAY ==
[2023-08-18 12:19] VITALS: BP 128/64; PULSE 99; RESP 16; O2SAT 95; BMI 33.2
[2023-08-18 14:24] LABS: Hematocrit 39.8 % (37.0-47.0); Hemoglobin 12.9 g/dl (12.0-16.0); Mean Corpuscular HGB Conc 32.4 g/dl (31.0-35.0); Mean Corpuscular Hemoglobin 29.1 pg (27.0-33.0); Mean Corpuscular Volume 89.8 fL (80.0-98.0); Platelet Count 405 X10*3/uL (160-400); Red Blood Count 4.43 X10*6/uL (4.20-5.50); Red Cell Distribution Width 14.6 % (11.0-16.0); White Blood Count 12.2 X10*3/uL (4.8-10.8)
[2023-08-18 14:52] LABS: Anion Gap 13 (12-20); Blood Urea Nitrogen 19 mg/dL (9-16); Calcium 10.1 mg/dL (8.4-10.2); Carbon Dioxide 25 mmol/L (22-29); Chloride 106 mmol/L (96-108); Creatinine Clr Calc Pharmacy 57.6; Estimated Glomerular Filt Rate > 60; Glucose Random 91 mg/dL (60-115); Potassium 4.6 mmol/L (3.3-5.1); Sodium 139 mmol/L (135-145)
[2023-08-18 15:02] LABS: Prothrombin Time 11.8 SEC (11.1-13.3)
[2023-08-18 15:05] LABS: Partial Thromboplastin Time 32.9 SEC (26.0-36.8)
[2023-08-25] VITALS (29 sets, daily range): BP systolic 103–147; BP diastolic 44–96; PULSE 76–95; RESP 11–20; TEMP 36.3–36.6; O2SAT 92–97; BMI 33.6
--- NOTE | ~2023-08-25 | XR_ITS ---
EXAMINATION: XR CHEST CLINICAL INFORMATION: Hypoxia. COMPARISON: Chest radiograph dated 02/20/2018. TECHNIQUE: Frontal view of the chest was obtained. FINDINGS: The trachea is in normal anatomic position. The cardiac silhouette is normal in size. There is calcific atherosclerotic disease of the aorta. There is no consolidation. No large pleural effusion. No pneumothorax. No acute osseous abnormality. XR/XR chest 1V IMPRESSION: No acute cardiopulmonary disease.
--- OUTSIDE RECORDS SUMMARY | 2023-08-25 06:10 | XMS_ITS | Continuity of Care Document ---
Author Organization [facility] Address Unknown Care Team Providers Care Admissions Consultant Name Role Phone Josee Hadley MD Primary Care Physician [place] [facility] [place]19[place]20 - 01/18/21 [facility] Allergies, Adverse Reactions, Alerts Substance Reaction Severity Status sulfa drugs Blistering Active Wellbutrin Rash Active Levaquin Nausea, vomiting and diarrhea Active Medications diclofenac potassium 50 mg oral tablet 1 tablet = 50 mg, By Mouth, 2 times a day, PRN Migraine Headache, # 12 tablet, 1 Refills, Maintenance, 01/24/20 16:59:00 EDT, [id number], 76, kg, 05/13/18 14:32:00 EST, Dry Weight Start Date: 01/24/20 Status: Ordered riboflavin 400 mg oral capsule 1 capsule = 400 mg, By Mouth, Daily, # 30 capsule, 5 Refills, Maintenance, 07/27/20 14:43:00 EDT, Capsule, [id number], Partial fill upon patient request if the prescription is for a schedule II opioid drug. Start Date: 07/27/20 Stop Date: 01/23/21 Status: Ordered Ubrelvy 50 mg oral tablet 1 tablet = 50 mg, By Mouth, Once, PRN as needed for migraine headache, may repeat dose in 2 hours if needed, # 10 tablet, 1 Refills, Soft Stop, 12/19/20 15:13:00 EDT, Tablet Start Date: 12/19/20 Status: Ordered Zofran 4 mg oral tablet 1 tablet = 4 mg, By Mouth, Every 8 hours, PRN Nausea, # 20 tablet, 1 Refills, Maintenance, 10/06/2113:48:00 EDT, Tablet, [id number] Start Date: 10/06/20 Status: Ordered
--- OUTSIDE RECORDS SUMMARY | 2023-08-25 06:10 | XMS_ITS | Continuity of Care Document ---
Author Organization [facility] Address [address] [facility], [address] Floor, [address] [place] [address]- Care Team Providers Care Drywall Taper Name Role Phone Josee Hadley MD Primary Care Physician [place] [facility] [place](s): 10/12/19 - 02/09/20 [facility] [address], [address], [address] [place] [address]- [facility] Attending Physician: Negin Morales MD Admitting Physician: Negin Morales MD Allergies, Adverse Reactions, Alerts Substance Reaction Severity [...] Dry Weight Start Date: 01/24/20 Status: Ordered Ubrelvy 50 mg oral tablet 1 tablet = 50 mg, By Mouth, Once, PRN as needed for migraine headache, may repeat dose in 2 hours if needed, # 10 tablet, 1 Refills, Soft Stop, 01/10/20 18:01:00 EDT, Tablet, [id number], 76, kg, 05/13/18 14:32:00 EST, Dry Weight Start Date: 01/10/20 Status: Ordered Zofran 4 mg oral tablet 1 tablet = 4 mg, By Mouth, Every 8 hours, PRN Nausea, # 20 tablet, 1 Refills, Maintenance, 01/09/2017:54:00 EDT, Tablet, [id number], 76, kg, 05/13/18 14:32:00 EST, Dry Weight Start Date: 01/10/20 Status: Ordered
--- OUTSIDE RECORDS SUMMARY | 2023-08-25 06:10 | XMS_ITS | Continuity of Care Document ---
Author Organization [facility] Address Unknown Care Team Providers Care Contracting Officer Name Role Phone Josee Hadley MD Primary Care Phys[id number] Date(s[facility] 06/07/21 - 07/07/21 [facility] Allergies, Adverse Reactions, Alerts Substance Reaction [...] Dry Weight Start Date: 01/24/20 Status: Ordered lidocaine 5% topical film 1 patch, Topically, Daily, PRN Pain , Mild, remove after 12 hours, # 13 each, 0 Refills, Maintenance, 03/17/21 3:20:00 EST, Film, [id number], Partial fill upon patient request if the prescription is for a schedule II opioid drug., 1 patch Topi... Start Date: 03/17/21 Status: Ordered riboflavin 400 mg oral capsule [...] Mouth, Every 8 hours, PRN Nausea, # 30 tablet, 0 Refills, Maintenance, 06/07/2212:24:00 EST, Tablet, [facility] #[id number], 151, cm, 03/17/21 0:20:00 EST, Height, 79, kg, 03/17/21 0:20:00 EST, Dry Weight Start Date: 06/07/21 Status: Ordered
--- OUTSIDE RECORDS SUMMARY | 2023-08-25 06:10 | XMS_ITS | Continuity of Care Document ---
Author Organization [facility] Address [address] [place], [address] Floor, [address] [place] [address]- Care Team Providers Care Plastics Nurse Name Role Phone Josee Hadley MD Primary Care Physician [phone] Encounter [facility] [place] Date(s): 11/22/21 - 12/22/21 [facility] [address], [address], [address] [place] [id number]- [place] Allergies, Adverse Reactions, Alerts Substance Reaction Severity [...] patch Topi... Start Date: 03/17/21 Status: Ordered ondansetron 4 mg oral tablet 1 tablet = 4 mg, By Mouth, Every 8 hours, PRN Nausea & Vomiting, # 30 tablet, 1 Refills, Maintenance, 11/22/21 14:49:00 EDT, Tablet, [id number], Partial fill upon patient request if the prescription is for a schedule II opioid drug., 151, cm,... Start Date: 11/22/21 Status: Ordered riboflavin 400 mg oral capsule 1 capsule = 400 mg, By Mouth, Daily, # 30 capsule, 5 Refills, Maintenance, 07/27/20 14:43:00 EDT, Capsule, [id number], Partial fill upon patient request if the [...] EDT, Tablet Start Date: 12/19/20 Status: Ordered Care Team Personnel Name: Josee Hadley MD Address: [address] [place], [place] [address] [place] [address]
--- OUTSIDE RECORDS SUMMARY | 2023-08-25 06:10 | XMS_ITS | Continuity of Care Document ---
Author Organization [facility] Address Unknown Care Team Providers Care Community Organization Director Name Role Phone Josee Hadley MD Primary Care Physician [id number] Date(s): 10/19/20 - 02/16/21 [facility] Attending Physician: Negin Morales MD Admitting Physician: [...]
--- OUTSIDE RECORDS SUMMARY | 2023-08-25 06:10 | XMS_ITS | Continuity of Care Document ---
Author Organization [facility] Address [address] [facility], 3r [address] Floor, [address] [place] [address]- Care Team Providers Care Sand Control Worker Name Role Phone Josee Hadley MD Primary Care Physician [place] [facility] [place] 04/22/20 [facility] [address] [place], [address] Floor, [address] [place] [id number] Allergies, Adverse Reactions, Alerts Substance Reaction Severity [...] = 400 mg, By Mouth, Daily, # 100 capsule, 0 Refills, Maintenance, 03/23/20 15:01:00 EST, Capsule, Partial fill upon patient request if the prescription is for a schedule II opioid drug. Start Date: 03/23/20 Status: Ordered Ubrelvy 50 mg oral tablet [...] Nausea, # 20 tablet, 1 Refills, Maintenance, 03/23/2014:56:00 EST, Tablet, [id number], 76, kg, 05/13/18 14:32:00 EST, Dry Weight Start Date: 03/23/20 Status: Ordered
--- OUTSIDE RECORDS SUMMARY | 2023-08-25 06:10 | XMS_ITS | Continuity of Care Document ---
Author Organization [facility] Address [address] [place] [address]- Care Team Providers Care Insurance Loss Control Surveyor Name Role Phone Josee Hadley MD Primary Care Physician [phone] [place] [facility] [place] - 12/23/[address] [address]- [facility] Attending Physician: Admtr, Ar8 Admitting Physician: Admtr, Ar8 Referring Physician: Admtr, Ar8 Allergies, Adverse Reactions, Alerts Substance Reaction Severity Status sulfa drugs Blistering Active Wellbutrin Rash Active Levaquin Nausea, vomiting and diarrhea Active Medications topiramate 25 mg oral capsule 2 capsule = 50 mg, By Mouth, 2 times a day, # 360 capsule, 1 Refills, Maintenance, 12/23/19 11:36:00 EDT, [id number], 76, kg, 05/13/18 14:32:00 EST, Dry Weight Start Date: 12/23/19 Status: Ordered Zofran 4 mg oral tablet 1 tablet = 4 mg, By Mouth, Every 8 hours, PRN Nausea, # 12 tablet, 1 Refills, Maintenance, 09/29/2012:52:00 EDT, Tablet, [id number], 76, kg, 05/13/18 14:32:00 EST, Dry Weight Start Date: 09/30/19 Status: Ordered
--- OUTSIDE RECORDS SUMMARY | 2023-08-25 06:10 | XMS_ITS | Continuity of Care Document ---
Author Organization [facility] Address Unknown Care Team Providers Care Equipment Engineering Technician Name Role Phone Josee Hadley MD Primary Care Physician [place] [facility] [place] 02/16/21 [facility] Attending Physician: Tasneem Arias Admitting Physician: Tasneem Arias Referring Physician: Tasneem Arias Allergies, Adverse Reactions, Alerts Substance Reaction Severity [...]
--- OUTSIDE RECORDS SUMMARY | 2023-08-25 06:10 | XMS_ITS | Continuity of Care Document ---
Author Organization [facility] Address [address] [facility], 3r d Floor, [address] [place] [address]- Care Team Providers Care Lithopone Charger Name Role Phone Jomar WILKINSON, Josee Primary Care Physician Encounter [facility] Date(s): 10/20/19 - 11/19/19 [facility] [address] [facility], 3rd Floor, [address] [place] [address]- [facility] Allergies, Adverse Reactions, Alerts Substance Reaction Severity Status sulfa drugs Blistering Active Wellbutrin Rash Active Levaquin Nausea, vomiting and diarrhea Active Medications topiramate 25 mg oral capsule 2 capsule = 50 mg, By Mouth, 2 times a day, 1 capsule twice daily x 1 week then 2 capsules twice daily, # 120 capsule, 3 Refills, Maintenance, 09/30/19 13:52:00 EDT, [id number], 76, kg, 05/13/18 14:32:00 EST, Dry Weight Start Date: 09/30/19 Status: Ordered Zofran 4 mg oral tablet 1 tablet = 4 mg, By Mouth, Every 8 hours, PRN Nausea, # 12 tablet, 1 Refills, Maintenance, 09/29/2012:52:00 EDT, Tablet, [id number], 76, kg, 05/13/18 14:32:00 EST, Dry Weight Start Date: 09/30/19 Status: Ordered
--- OUTSIDE RECORDS SUMMARY | 2023-08-25 06:10 | XMS_ITS | Continuity of Care Document ---
Author Organization [facility] Address [address] [facility], 3r d Floor, [address] [place] [address]- Care Team Providers Care Radio Officer Name Role Phone Josee Hadley MD Primary Care Physician [place] [facility] [place]): 05/30/20 - 06/29/20 [facility] [address] [place], [address] Floor, [address] [place] [id number] Allergies, Adverse Reactions, Alerts Substance Reaction Severity [...] # 10 tablet, 1 Refills, Soft Stop, 05/11/20 16:24:00 EST, Tablet Start Date: 05/11/20 Status: Ordered Zofran 4 mg oral tablet 1 tablet = 4 mg, By Mouth, Every 8 hours, PRN Nausea, # 20 tablet, 1 Refills, Maintenance, 06/09/2115:27:00 EST, Tablet, [id number] Start Date: 06/09/20 Status: Ordered
--- OUTSIDE RECORDS SUMMARY | 2023-08-25 06:10 | XMS_ITS | Continuity of Care Document ---
Author Organization [facility] Address Unknown Care Team Providers Care Grain Oilseed Or Pasture Grower Name Role Phone Josee Hadley MD [id number] Date(s[facility] 05/10/21 - 06/09/21 [facility] Allergies, Adverse Reactions, Alerts Substance [...] tablet, 0 Refills, Maintenance, 06/07/2212:24:00 EST, Tablet, [facility] #[id number], 151, cm, 03/17/21 0:20:00 EST, Height, 79, kg, 03/17/21 0:20:00 EST, Dry Weight Start Date: 06/07/21 Status: Ordered
--- OUTSIDE RECORDS SUMMARY | 2023-08-25 06:10 | XMS_ITS | Continuity of Care Document ---
Author Organization [facility] Address [address] [facility], 3r d Floor, [address] [place] [id number]- Care Team Providers Care Brick Tosser Name Role Phone Josee Hadley MD Primary Care Physician [place] [facility] [place]19 - 10/30/19 [facility] [address], [address], [address] [place] [address]- [facility] Attending Physician: Negin Morales MD Admitting Physician: Negin Morales MD Referring Physician: Josee Hadley MD Allergies, Adverse Reactions, Alerts Substance Reaction [...]
--- OUTSIDE RECORDS SUMMARY | 2023-08-25 06:10 | XMS_ITS | Continuity of Care Document ---
Author Organization [facility] Address [address] [place] [address]- Care Team Providers Care Animal Care Attendant Name Role Phone Josee Hadley MD Primary Care Physician Encounter [facility] [place] Date(s): 03/16/21 - 03/17/[address] [id number]- Encounter Diagnosis Arthritis(Final) - 03/17/21 Discharge Disposition: A-D/C Home Attending Physician: Pam Elkins MD Admitting Physician: Pam Elkins MD Referring Physician: Not on Staff, Referring MD Allergies, Adverse Reactions, Alerts Substance Reaction [...] tablet, 1 Refills, Maintenance, 10/06/2113:48:00 EDT, Tablet, [facility]/pharmacy #[id number] Start Date: 10/06/20 Status: Ordered Results Radiology Reports * Exam Date Time Procedure Performing Provider Status 03/17/21 2:02 AM Knee 1 or 2 Views Right Shima Zimmerman ; Anthony (Verified) Notes: (Knee 1 or 2 Views Right) Reason For Exam: Effusion RESULT: Knee 1 or 2 Views Right Knee 1 or 2 Views Right, views Hx of Present Illness: PT arrives c o pain to RLE x 1 week. Denies any injury or trauma. Pt reportsshe recently went on a long car ride.; Reason: Effusion; Clinical Question(s): Fracture COMPARISON: None. FINDINGS: There is no evidence of acute or healing fracture, dislocation or bone lesion. No arthritic changes. No osteochondral defects or intra-articular loose bodies. Minimal density in the suprapatellar recess without fat fluid level. IMPRESSION: Small knee joint effusion. No bony abnormality. WSN: [id number] Ordering Physician: Darnell Ortiz Dictated By: Brian Butler MD Dictated Date/Time: 03/17/21 8:34 am Reviewed By: Brian Butler MD Signed By: Brian Butler MD Signed Date/Time: 03/17/21 8:34 am Transcribed By: THADDEUS Transcribed Date/Time: 03/17/21 8:32 am Vital Signs Most recent to oldest [Reference Range]: 1 2 3 Height 151 cm (03/17/21 12:20 AM) Weight 79 kg (03/17/21 12:20 AM) Oxygen Saturation [94-100 %] 100 % (03/17/21 3:23 AM) 100 % (03/16/21 11:44 PM) 96 % (03/16/21 10:39 PM) Pulse Rate [55-90 bpm] 90 bpm (03/17/21 3:23 AM) 95 bpm *H* (03/16/21 11:44 PM) 103 bpm *H* (03/16/21 10:39 PM) Blood Pressure [90-138/55-84 mm Hg] 150/66mm Hg *H* (03/17/21 3:23 AM) 144/69mm Hg *H* (03/16/21 11:44 PM) 150/72mm Hg *H* (03/16/21 10:39 PM) Respiratory Rate [16-30 br/min] 16 br/min (03/17/21 3:23 AM) 20 br/min (03/16/21 11:44 PM) 16 br/min (03/16/21 10:39 PM) Temperature [96.8-100.4 DegF] 98.0 DegF (03/17/21 3:23 AM) 97.9 DegF (03/16/21 11:44 PM) 98 DegF (03/16/21 10:39 PM) Mode of Delivery (Oxygen) Room air (03/17/21 3:23 AM) Room air (03/16/21 11:44 PM) Room air (03/16/21 10:39 PM) Blood pressure sites Arm, left (03/17/21 3:23 AM) Arm, left (03/16/21 11:44 PM) Arm, right (03/16/21 10:39 PM) Temperature Route Oral (03/17/21 3:23 AM) Oral (03/16/21 11:44 PM) Oral (03/16/21 10:39 PM) Dry Weight 79 kg (03/17/21 12:20 AM)
--- OUTSIDE RECORDS SUMMARY | 2023-08-25 06:10 | XMS_ITS | Continuity of Care Document ---
Author Organization [facility] Address [address] [facility], [address] Floor, [address] [place] [id number]- Care Team Providers Care Refuse Collector Name Role Phone Josee Hadley MD Primary Care Physician Encounter [facility] [place] Date(s): 09/12/20 - 10/12/20 [facility] [address], [address], [address] [place] [id number]- Allergies, Adverse Reactions, Alerts Substance Reaction Severity [...] # 10 tablet, 1 Refills, Soft Stop, 09/13/20 12:02:00 EDT, Tablet Start Date: 09/13/20 Status: Ordered Zofran 4 mg oral tablet 1 tablet = 4 mg, By Mouth, Every 8 hours, PRN Nausea, # 20 tablet, 1 Refills, Maintenance, 10/06/2113:48:00 EDT, Tablet, [facility] #[id number] Start Date: 10/06/20 Status: Ordered
--- OUTSIDE RECORDS SUMMARY | 2023-08-25 06:10 | XMS_ITS | Continuity of Care Document ---
Author Organization [facility] Address [address] [facility], [address] Floor, [address] [place] [id number]- Care Team Providers Care Trestle Mechanic Name Role Phone Josee Hadley MD Primary Care Physician Encounter [facility] [place] Date(s): 05/11/20 - 06/10/20 [facility] [address] [place], [address], [address] [place] [id number]- Allergies, Adverse Reactions, Alerts Substance Reaction Severity [...]
[2023-08-25] MEDS: Lactated Ringers 1,000 ML 100 ML IVCONT (06:32)
[2023-08-25] MEDS: Aprepitant 32 MG/4.4 ML VIAL IVPUSH (06:32)
[2023-08-25 06:37] LABS: Hematocrit 39.1 % (37.0-47.0); Hemoglobin 12.7 g/dl (12.0-16.0); Mean Corpuscular HGB Conc 32.5 g/dl (31.0-35.0); Mean Corpuscular Hemoglobin 29.4 pg (27.0-33.0); Mean Corpuscular Volume 90.5 fL (80.0-98.0); Mean Platelet Volume 8.4 fL (9.4-12.3); Platelet Count 401 X10*3/uL (160-400); Red Blood Count 4.32 X10*6/uL (4.20-5.50); Red Cell Distribution Width 14.3 % (11.0-16.0); White Blood Count 8.9 X10*3/uL (4.8-10.8)
[2023-08-25 06:43] LABS: Prothrombin Time 11.8 SEC (11.1-13.3)
[2023-08-25 06:46] LABS: Partial Thromboplastin Time 34.1 SEC (26.0-36.8)
[2023-08-25] MEDS: Albuterol Sulfate (0.083%) 2.5 MG/3 ML VIAL.NEB INHALE (06:47)
[2023-08-25 06:49] LABS: Anion Gap 14 (12-20); Blood Urea Nitrogen 18 mg/dL (9-16); Calcium 9.5 mg/dL (8.4-10.2); Carbon Dioxide 24 mmol/L (22-29); Chloride 110 mmol/L (96-108); Creatinine Clr Calc Pharmacy 60.2; Estimated Glomerular Filt Rate > 60; Glucose Random 113 mg/dL (60-115); Potassium 4.2 mmol/L (3.3-5.1); Sodium 144 mmol/L (135-145)
--- NOTE | 2023-08-25 07:25 | P.CONAN_ITS ---
Documented by User: Inessa Dietz NP 08/21/23 15:44 HPI - Anesthesia Eval Consult details Narrative: 68yo F for Right Carotid Endarterectomy Pulmo cleared: PFT completed which revealed a FEV1 of 63%, FEV1/FVC 68, suggestive of moderate COPD. Decreased DLCO 54% suggestive of emphysema and increased RV 121% likely related to air trapping. Overall patient reports good control of respiratory symptoms. Respiratory exam was unremarkable at the last visit. She does not require supplemental oxygen and has not had any recent COPD exacerbations. Given this she is low risk for perioperative pulmonary complications for proposed right endarterectomy with Dr. Payton. Consider bronchodilators in the perioperative period. Cardiac cleared: Echocardiogram with LVEF of 60%. No wall motion abnormalities. Otherwise unremarkable. Myocardial perfusion imaging study shows normal perfusion. Intermediate cardiac risk. No recent illness No CP/SOB with walking with cane PONV. Scop patch doesn't work will try aponvie DVT. ? possible 2017, pt denies tx CHF. No edema, COPD/Smoker. Stable, baseline [facility] Active Problems Active Problems: All Active Problems Nicotine dependence, cigarettes, uncomplicated (Acute) Encounter for preoperative pulmonary examination (Acute) Preoperative cardiovascular examination (Acute) Carotid stenosis, right (Acute) Left carotid artery stenosis (Acute) Unilateral osteoarthritis of knee (Acute) KING (dyspnea on exertion) (Acute) Vitamin D deficiency (Acute) Cough (Acute) Knee pain, right (Acute) DVT (deep venous thrombosis) (Acute) Leg pain (Acute) Vitamin B12 deficiency (Acute) Carotid stenosis, bilateral (Acute) Diastolic CHF (Acute) Anxiety (Acute) Tension headache (Acute) Migraine headache with aura (Acute) HTN (hypertension) (Acute) Hyperlipidemia (Acute) Hypothyroidism (Acute) Lung nodule (Acute) COPD (chronic obstructive pulmonary disease) (Acute) Past Medical History Medical History Ambulates with cane History of postoperative nausea Vitamin D deficiency Cough Knee pain, right DVT (deep venous thrombosis) (~2017) Leg pain Vitamin B12 deficiency Carotid stenosis, bilateral Diastolic CHF Anxiety Tension headache Migraine headache with aura HTN (hypertension) Hyperlipidemia Hypothyroidism Lung nodule COPD (chronic obstructive pulmonary disease) Family History Family History Father HTN (hypertension) Mother COPD (chronic obstructive pulmonary disease) HTN (hypertension) Family history of problems with anesthesia: No Surgical History Surgical History History of decompression of ulnar nerve Hx of vaginal hysterectomy (~1994) Hx of laparoscopy History of esophagogastroduodenoscopy (EGD) H/O colonoscopy History of laryngoscopy History of Problems with Anesthesia: Yes (PONV) Social History Social History (Updated 08/18/23 @ 12:39 by Gabrielle Amezquita RN) Household Members Other:: 88 yr old mom Housing: House Are you a primary critical care registered nurse to a significant other at home: Yes (88 yr old mom, looking for help post-op, brother can help with some care) Do you presently have visiting nurse or other home services: No Patient Tobacco Use Status: Current everyday Tobacco user Tobacco use type: Cigarette Cigarettes Per Day: 5 Years Smoked: 46 Smoked in Last 30 Days: Yes e-Cigarette/Vaping Use: Never Used Patient Interested in Nicotine Replacement: No Patient Given Instructions on How to Stop Smoking: No (declined) Use of substances other than those prescribed or required for medical reasons: No Have you been hit, kicked, punched, or otherwise hurt by someone within the past year? If so, by whom?: No Are you DNR?: No Advance Directives: No Advance Directives Information Provided: Yes Advance Directives on File: No Recently lost weight without trying: No Poor oral hygiene: Yes (chipped right upper tooth) Current occupational status: retired Cognitive needs: No Hearing needs: No Vision needs: Yes Meds Allergies Allergy/AdvReac Type Severity Reaction Status Date / Time atorvastatin [Lipitor] Allergy Severe nausea Verified 08/25/23 06:16 bupropion [Wellbutrin] Allergy Severe Rash Verified 08/25/23 06:16 levofloxacin [Levaquin] Allergy Severe Rash Verified 08/25/23 06:16 Sulfa (Sulfonamide Allergy Severe burning Verified 08/25/23 06:16 Antibiotics) sensation red burn manuel amitriptyline AdvReac Severe headaches, Verified 08/25/23 06:16 migraines metoprolol AdvReac Intermediate Nausea Verified 08/25/23 06:16 topiramate [Topamax] AdvReac Unknown sleepiness Verified 08/25/23 06:16 Home Medications ?Medication ?Instructions ?Recorded ?Confirmed ?Last Taken ?Type folic acid 1 mg tablet 1 mg PO DAILY 03/29/21 08/18/23 08/24/23 History Exam Height,Weight and Vital Signs: Height 4 ft 11.5 in Weight 75.75 kg Last Vital Signs Pulse 99 08/18/23 12:19 Resp 16 08/18/23 12:19 BP 128/64 08/18/23 12:19 Pulse Ox 95 08/18/23 12:19 O2 Del Method Room Air 08/18/23 12:19 Pertinent Lab Results Pertinent Lab Results: Lab Results 08/18/23 08/18/23 Range/Units 13:30 13:37 WBC 12.2 H (4.8-10.8) X10*3/uL RBC 4.43 (4.20-5.50) X10*6/uL Hgb 12.9 (12.0-16.0) g/dl Hct 39.8 (37.0-47.0) % MCV 89.8 (80.0-98.0) fL MCH 29.1 (27.0-33.0) pg MCHC 32.4 (31.0-35.0) g/dl RDW 14.6 (11.0-16.0) % Plt Count 405 H (160-400) X10*3/uL MPV 9.0 L (9.4-12.3) fL Absolute Nucleated RBC 0.000 (0.0-0.012) X10*3/uL Nucleated RBC % (auto) 0.0 (0.0-0.2) /100WBC PT 11.8 (11.1-13.3) SEC INR 1.0 (0.9-1.1) APTT 32.9 (26.0-36.8) SEC Sodium 139 (135-145) mmol/L Potassium 4.6 (3.3-5.1) mmol/L Chloride 106 (96-108) mmol/L Carbon Dioxide 25 (22-29) mmol/L Anion Gap 13 (12-20) BUN 19 H (9-16) mg/dL Creatinine 0.84 (0.5-1.4) mg/dL Estim Creat Clear Calc 57.6 Estimated GFR > 60 Random Glucose 91 (60-115) mg/dL Calcium 10.1 D (8.4-10.2) mg/dL Blood Type A Positive Antibody Screen NEGATIVE Narrative Narrative: EKG 2023 sinus rhythm at 87/Min; no significant ST-T changes and otherwise unremarkable. Normal DE and corrected QT. ECHO 2023 Conclusions: - The left ventricular systolic function is normal. The calculated ejection fraction is 60% by biplane method. - No obvious valvular pathology seen on this study. NM cardiolite stress test 2023 Impression: 1. Myocardial perfusion imaging study shows normal myocardial 2. Gated LVEF is greater than 60% 3. Transient ischemic dilatation not present EKG is nondiagnostic for ischemia Airway Mallampati Class: III TM Dist: >3cm Neck ROM: Limited Loose/Missing/Broken Teeth: Yes (#8 chip. Repair planned prior to surgery, missing, some molars worn to gums) Heart: RRR Lungs: TAB Assessment and Plan Assessment Anesthesia Assessment: Anesthesia Plan Discussed, Smoking Cess. Discussed and PAT Visit Final Anesthetic Review Family History of Problems with Anesthesia: No History of Problems with Anesthesia: Yes (PONV) Documented by User: Dahlia Palmer DO 08/25/23 08:24 HPI - Anesthesia Eval Consult details Narrative: 68yo F for Right Carotid Endarterectomy Pulmo cleared: PFT completed which revealed a FEV1 of 63%, FEV1/FVC 68, suggestive of moderate COPD. Decreased DLCO 54% suggestive of emphysema and increased RV 121% likely related to air trapping. Overall patient reports good control of respiratory symptoms. Respiratory exam was unremarkable at the last visit. She does not require supplemental oxygen and has not had any recent COPD exacerbations. Given this she is low risk for perioperative pulmonary complications for proposed right endarterectomy with Dr. Payton. Consider bronchodilators in the perioperative period. Cardiac cleared: Echocardiogram with LVEF of 60%. No wall motion abnormalities. Otherwise unremarkable. Myocardial perfusion imaging study shows normal perfusion. Intermediate cardiac risk. No recent illness No CP/SOB with walking with cane PONV. Scop patch doesn't work will try aponvie DVT. ? possible 2017, pt denies tx CHF. No edema. COPD/Smoker. Stable, baseline [facility] Past Medical History Medical History Ambulates with cane History of postoperative nausea Vitamin D deficiency Cough Knee pain, right DVT (deep venous thrombosis) (~2016) Leg pain Vitamin B12 deficiency Carotid stenosis, bilateral Diastolic CHF Anxiety Tension headache Migraine headache with aura HTN (hypertension) Hyperlipidemia Hypothyroidism Lung nodule COPD (chronic obstructive pulmonary disease) Family History Family History Father HTN (hypertension) Mother COPD (chronic obstructive pulmonary disease) HTN (hypertension) Family history of problems with anesthesia: No Surgical History Surgical History History of decompression of ulnar nerve Hx of vaginal hysterectomy (~1994) Hx of laparoscopy History of esophagogastroduodenoscopy (EGD) H/O colonoscopy History of laryngoscopy History of Problems with Anesthesia: Yes (PONV) Social History Social History (Updated 08/18/23 @ 12:39 by Gabrielle Amezquita RN) Household Members Other:: 88 yr old mom Housing: House Are you a primary critical care registered nurse to a significant other at home: Yes (88 yr old mom, looking for help post-op, brother can help with some care) Do you presently have visiting nurse or other home services: No Patient Tobacco Use Status: Current everyday Tobacco user Tobacco use type: Cigarette Cigarettes Per Day: 5 Years Smoked: 46 Smoked in Last 30 Days: Yes e-Cigarette/Vaping Use: Never Used Patient Interested in Nicotine Replacement: No Patient Given Instructions on How to Stop Smoking: No (declined) Use of substances other than those prescribed or required for medical reasons: No Have you been hit, kicked, punched, or otherwise hurt by someone within the past year? If so, by whom?: No Are you DNR?: No Advance Directives: No Advance Directives Information Provided: Yes Advance Directives on File: No Recently lost weight without trying: No Poor oral hygiene: Yes (chipped right upper tooth) Current occupational status: retired Cognitive needs: No Hearing needs: No Vision needs: Yes Meds Allergies Allergy/AdvReac Type Severity Reaction Status Date / Time atorvastatin [Lipitor] Allergy Severe nausea Verified 08/25/23 06:16 bupropion [Wellbutrin] Allergy Severe Rash Verified 08/25/23 06:16 levofloxacin [Levaquin] Allergy Severe Rash Verified 08/25/23 06:16 Sulfa (Sulfonamide Allergy Severe burning Verified 08/25/23 06:16 Antibiotics) sensation red burn manuel amitriptyline AdvReac Severe headaches, Verified 08/25/23 06:16 migraines metoprolol AdvReac Intermediate Nausea Verified 08/25/23 06:16 topiramate [Topamax] AdvReac Unknown sleepiness Verified 08/25/23 06:16 Home Medications ?Medication ?Instructions ?Recorded ?Confirmed ?Last Taken ?Type folic acid 1 mg tablet 1 mg PO DAILY 03/29/21 08/18/23 08/24/23 History Exam Exam Date and Time: August 25, 2023724 Height,Weight and Vital Signs: Height 4 ft 11.5 in Weight 75.75 kg Last Vital Signs Pulse 99 08/18/23 12:19 Resp 16 08/18/23 12:19 BP 128/64 08/18/23 12:19 Pulse Ox 95 08/18/23 12:19 O2 Del Method Room Air 08/18/23 12:19 Height 4 ft 11.5 in Weight 76.657 kg Vital Signs Pulse Rate 99 08/18/23 12:19 Respiratory Rate 16 08/18/23 12:19 Blood Pressure 128/64 08/18/23 12:19 Pulse Oximetry 95 08/18/23 12:19 Oxygen Delivery Method Room Air 08/18/23 12:19 Temperature 97.8 F 08/25/23 06:16 Pulse Rate 83 08/25/23 06:47 Respiratory Rate 18 08/25/23 06:47 Blood Pressure 147/56 H 08/25/23 06:16 Pulse Oximetry 95 08/25/23 06:16 Oxygen Delivery Method Room Air 08/25/23 06:16 Airway Mallampati Class: III TM Dist: >3cm Neck ROM: Limited Loose/Missing/Broken Teeth: Yes (#8 chip. Repair planned prior to surgery, missing, some molars worn to gums) Heart: S1S2 Lungs: CTAB Assessment and Plan Assessment Anesthesia Assessment: Anesthesia Plan Discussed and Chart Reviewed Final Anesthetic Review Family History of Problems with Anesthesia: No History of Problems with Anesthesia: Yes (PONV) NPO: Yes ASA Class: III Final Preanesthetic Review: No Changes in Pt Med Stat, Meds/Allgs Chart Reviewed, Consent Obtained/Reviewed and Anes Risks/Benef Reviewed Patient Risk: Intermediate Procedure Risk: Intermediate Anesthetic Plan Anesthetic Plan: GA and Agree w/ Assess. and Plan Disposition: Standard PACU
--- NOTE | 2023-08-25 07:35 | MHC.SHP ---
Pre-Procedural Eval Section A - 24 Hr Update-Section A only Date of Service: 08/25/23 The patient is an INPATIENT: No Changes since office visit: Yes Patient answered all questions The patient has been examined within 24 hours of the surgical procedure. The History & Physical has been completed within 30 days and I have reviewed it.: Yes Section B - Complete if H&P > 30 days Chief Complaint: post op Allergies: Allergies Allergy/AdvReac Type Severity Reaction Status Date / Time atorvastatin [Lipitor] Allergy Severe nausea Verified 08/25/23 06:16 bupropion [Wellbutrin] Allergy Severe Rash Verified 08/25/23 06:16 levofloxacin [Levaquin] Allergy Severe Rash Verified 08/25/23 06:16 Sulfa (Sulfonamide Allergy Severe burning Verified 08/25/23 06:16 Antibiotics) sensation red burn manuel amitriptyline AdvReac Severe headaches, Verified 08/25/23 06:16 migraines metoprolol AdvReac Intermediate Nausea Verified 08/25/23 06:16 topiramate [Topamax] AdvReac Unknown sleepiness Verified 08/25/23 06:16 Plan I have reviewed the history and physical and performed a pertinent physical examination on my patient. No changes have occurred unless specified. Time Spent With Patient Time: Total time managing care of this patient today ____ minutes.
--- NOTE | 2023-08-25 10:32 | P.OP_ITS ---
Operative Note Operative Note Date of Service: 08/25/23 Narrative: Operative note by [facility] Preoperative diagnosis:1. Right Carotid stenosis Postoperative diagnosis: Same Procedure: Right Carotid endarterectomy with patch angioplasty Surgeon:Robert Payton M.D. Boatswains Mate: Dr. Elder Anesthesia: General Specimens: 1 Drains: 1 Estimated blood loss: 100 mL Indications: Pleasant 68-year-old female who upon carotid ultrasound was noted to have high-grade right carotid stenosis. This was confirmed with CT angiogram. She now presents for endarterectomy. The patient has signed the informed consent after reviewing risks, complications, benefits, and alternatives previously discussed with the patient. The patient was given the opportunity to ask any additional questions or voice any concerns. All questions were answered to the patient's satisfaction. Procedure in detail: Patient was taken to the operating room and placed in a supine position and prepped and draped in sterile manner with ChloraPrep. Longitudinal incision was made along the right anterior border of the sternocleidomastoid carried down through the subcutaneous fat and fascia. Hemostasis was obtained with electrocautery. The platysma muscle was then divided. The carotid sheath was identified in open. The vagus nerve, Ancef cervicalis, and hypoglossal nerves were identified and avoided. The common internal and external carotids were then freed from the surrounding tissue. At this point, 5000 units of heparin was administered and allowed to circulate for 5 minutes time to take effect. The internal, common, external carotids were clamped in that order. Once this was accomplished, we proceeded with the procedure. The carotid bulb was opened with an 11 blade and extended with Snyder scissors through the very tight lesion into normal internal carotid artery. This was then extended down into the common carotid artery. This actually had to be extended further down as she did have quite extensive disease in the common carotid. We then placed a Whitmore shunt. Then the plaque was sharply excised proximally and an eversion endarterectomy was performed successfully at the external. The plaque tapered nicely on to the internal and no tacking sutures were necessary. Heparinized saline was injected and no evidence of flapping or other debris was noted. The remaining carotid was examined, which showed no debris or flaps present. At this point a XenoSure patch was brought on to the field. This was anastomosed to the artery using a 6 0 Prolene in a running fashion. Once approximately 4/5 of the patch was sewn in the shunt was then removed. Prior to the last stitch the internal carotid was back bled through this. Heparinized saline was instilled into the carotid. The last stitch was tied. Hemostasis was excellent. The internal carotid was gently occluded while while of the external and internal were open in that order. Finally the internal was then opened and flow was restored to the entire system. Hemostasis was achieved with interrupted 7-0 Prolene sutures. The wound was irrigated thoroughly. We then placed a 7 flat Navid-Cutler drain. Deep layer was reapproximated using a 2-0 poly Sorb and finally the superficial layer with a 3-0 Polysorb. The skin was closed in a subcuticular manner. The patient awoke and neurologic status was checked and appeared to be intact. Sponge, needle and instrument counts were correct. The patient tolerated the procedure well. Returned to recovery with stable vitals. This note is constructed using voice recognition software. While every effort has been made to ensure accuracy, physicist light and optics errors may have been included. Thank you for allowing me to participate in the care of your patient. Yours sincerely, Robert Payton MD, FACS, R.P.V.I.
[2023-08-25] MEDS: HYDROmorphone HCl 0.5 MG/0.5 ML SYRINGE 0.25 MG IVPUSH ×4 (10:50→11:10)
--- NOTE | 2023-08-25 11:26 | PHA.MEDREC ---
Pharmacy Consult ? Medication Reconciliation Pharmacy has reviewed the medication reconciliation completed by nursing.
[2023-08-25] MEDS: ceFAZolin Sodium/Dextrose,Iso 2 GM/50 ML PIGGYBACK IV (14:46)
--- NOTE | 2023-08-25 15:45 | PM.CCHP ---
History of Present Illness Date of Service: 08/25/23 Attending physician on admission: Robert Payton Chief Complaint: Carotid endarterectomy 68-year-old lady who is a chronic smoker with past medical history of moderate COPD not on any home oxygen, hypertension, hyperlipidemia was found to have bilateral carotid stenosis on surveillance, which was confirmed with CTA of neck. Patient presented to the hospital for an elective carotid endarterectomy which she underwent successfully without any complications. Patient is admitted to medical ICU for postop close monitoring. Review of Systems Review of Systems: Yes all other systems are reviewed and are negative Constitutional: Constitutional: Reports as per HPI Eyes: Eyes: Reports as per HPI ENT: Reports system reviewed and no additional complaints, except as documented Cardiovascular: Cardiovascular: Reports as per HPI Respiratory: Respiratory: Reports as per HPI Gastrointestinal: Gastrointestinal: Reports as per HPI and Reports no additional gastrointestinal complaints Genitourinary: Genitourinary: Reports no additional female genitourinary complaints Endocrine: Endocrine: Reports no additional endocrine complaints Hematologic/Lymphatic: Hematologic/Lymphatic: Reports no additional hematologic/lymphatic complaints [facility] Past Medical History Medical History Ambulates with cane History of postoperative nausea Vitamin D deficiency Cough Knee pain, right DVT (deep venous thrombosis) (~2016) Leg pain Vitamin B12 deficiency Carotid stenosis, bilateral Diastolic CHF Anxiety Tension headache Migraine headache with aura HTN (hypertension) Hyperlipidemia Hypothyroidism Lung nodule COPD (chronic obstructive pulmonary disease) Family History Family History Father HTN (hypertension) Mother COPD (chronic obstructive pulmonary disease) HTN (hypertension) Surgical History Surgical History History of decompression of ulnar nerve Hx of vaginal hysterectomy (~1994) Hx of laparoscopy History of esophagogastroduodenoscopy (EGD) H/O colonoscopy History of laryngoscopy Social History Social History (Updated 08/18/23 @ 12:39 by Gabrielle Amezquita RN) Household Members: Family Household Members Other:: 88 yr old mom Housing: House Are you a primary care trainer to a significant other at home: Yes (88 yr old mom, looking for help post-op, brother can help with some care) Do you presently have visiting nurse or other home services: No Patient Tobacco Use Status: Current everyday Tobacco user Tobacco use type: Cigarette Cigarettes Per Day: 5 Years Smoked: 46 Smoked in Last 30 Days: Yes e-Cigarette/Vaping Use: Never Used Patient Interested in Nicotine Replacement: No Patient Given Instructions on How to Stop Smoking: No (declined) Use of substances other than those prescribed or required for medical reasons: No Have you been hit, kicked, punched, or otherwise hurt by someone within the past year? If so, by whom?: No Do you feel safe in your current relationship?: No Current Relationship Is there a partner from a previous relationship who is making you feel unsafe now?: No Are you made to feel afraid or neglected: No Are you DNR?: No Advance Directives: No Advance Directives Information Provided: Yes Advance Directives on File: No Do you have a plan to hurt others: No Plan Recently lost weight without trying: No Nutrition Risks: No Nutritional Risk Patient : No : No Poor oral hygiene: No Current occupational status: retired Cognitive needs: No Hearing needs: No Vision needs: Yes Meds Allergies Allergy/AdvReac Type Severity Reaction Status Date / Time atorvastatin [Lipitor] Allergy Severe nausea Verified 08/25/23 06:16 bupropion [Wellbutrin] Allergy Severe Rash Verified 08/25/23 06:16 levofloxacin [Levaquin] Allergy Severe Rash Verified 08/25/23 06:16 Sulfa (Sulfonamide Allergy Severe burning Verified 08/25/23 06:16 Antibiotics) sensation red burn manuel amitriptyline AdvReac Severe headaches, Verified 08/25/23 06:16 migraines metoprolol AdvReac Intermediate Nausea Verified 08/25/23 06:16 topiramate [Topamax] AdvReac Unknown sleepiness Verified 08/25/23 06:16 Active Medications: Current Medications Albuterol Sulfate (Albuterol Sulfate (0.042%) 1.25 Mg/3 Ml Vial.Neb) 0.63 mg INHALE RQID PRN PRN Reason: shortness of breath or wheezing Aspirin (Aspirin Enteric Coated 81 Mg Tablet.) 81 mg PO DAILY FE Diltiazem HCl (Diltiazem Hcl Cd 180 Mg Cap.Er.24h) 180 mg PO DAILY FE; Protocol Fluticasone/Umeclidinium/Vilanterol (Fluticasone/Umeclidinium/Vilanterol 200/62.5/25 Blst.W.Dev) 1 puff INHALE RDAILY [facility] Folic Acid (Folic Acid 1 Mg Tablet) 1 mg PO DAILY [facility] Haloperidol Lactate (Haloperidol Lactate 5 Mg/Ml Vial) 1 mg IVPUSH ONCE PRN PRN Reason: Nausea and Vomiting Lactated Ringer's (Lr) 1,000 mls @ 100 mls/hr IVCONT .Q10H [facility] Last Admin: 08/25/23 06:32 Dose: 100 mls/hr Levothyroxine Sodium (Levothyroxine Sodium 88 Mcg Tablet) 88 mcg PO DAILY@0600 [facility] Montelukast Sodium (Montelukast Sodium 10 Mg Tablet) 10 mg PO DAILY [facility] Morphine Sulfate (Morphine Sulfate 2 Mg/Ml Cartridge) 2 mg IVPUSH Q4H PRN; Protocol PRN Reason: Pain, Severe (Pain Scale 7-10) Naproxen (Naproxen 500 Mg Tablet) 500 mg PO BID [facility] Non-Formulary Medication (Rosuvastatin [Crestor]) 10 mg PO DAILY [facility] Oxycodone HCl (Oxycodone Hcl Immed Release 5 Mg Tablet) 5 mg PO Q4H PRN PRN Reason: Pain, Moderate(Pain Scale 4-6) Ropinirole HCl (Ropinirole Hcl 0.5 Mg Tablet) 0.5 mg PO BEDTIME [facility] Sodium Chloride (0.9 % Sodium Chloride Flush 3 Ml Syringe) 3 ml IVFLUSH QSHIFT [facility] Home Medications ?Medication ?Instructions ?Recorded ?Confirmed ?Last Taken ?Type folic acid 1 mg tablet 1 mg PO DAILY 03/29/21 08/18/23 08/24/23 History Physical Exam Vital Signs: Vital Signs: Last Vital Signs Temp 97.3 F 08/25/23 15:00 Pulse 81 08/25/23 15:00 Resp 16 08/25/23 15:00 BP 143/75 H 08/25/23 15:00 Pulse Ox 96 08/25/23 15:00 O2 Del Method Nasal Cannula 08/25/23 15:00 O2 Flow Rate 4 08/25/23 12:05 BMI result Body Mass Index 33.6 Results Labs 08/25/23 06:27 08/25/23 06:27 Labs: Laboratory Results - last 24 hr 08/25/23 06:27 MCV 90.5 MCH 29.4 MCHC 32.5 RDW 14.3 Plt Count 401 H MPV 8.4 L Absolute Nucleated RBC 0.000 Nucleated RBC % (auto) 0.0 PT 11.8 INR 1.0 APTT 34.1 Anion Gap 14 Estim Creat Clear Calc 60.2 Estimated GFR > 60 Random Glucose 113 Calcium 9.5 Assessment and Plan (1) Carotid stenosis, right: Status: Acute (2) Left carotid artery stenosis: Status: Acute (3) HTN (hypertension): Status: Acute (4) Hyperlipidemia: Status: Acute (5) Hypothyroidism: Status: Acute Plan 68-year-old lady who is a chronic smoker with past medical history of moderate COPD, hypertension, hyperlipidemia found to have bilateral severe carotid stenosis on surveillance and confirmed with CTA of neck he is admitted to the hospital for carotid endarterectomy. Procedure was uneventful, patient is admitted to ICU for monitoring Hypertension: Status post carotid endarterectomy: Closely monitor the blood pressure Keep SBP<170mmHg We will restart home medications tomorrow Total time managing care of this patient today: 25 minutes.
[2023-08-25] MEDS: Morphine Sulfate 2 MG/ML CARTRIDGE IVPUSH (16:03)
[2023-08-25] MEDS: 0.9 % Sodium Chloride Flush 3 ML SYRINGE IVFLUSH ×2 (17:49→20:59)
[2023-08-25] MEDS: rOPINIRole HCL 0.5 MG TABLET PO (20:45)
[2023-08-26] VITALS (21 sets, daily range): BP systolic 108–190; BP diastolic 58–109; PULSE 73–124; RESP 12–25; TEMP 36.4–36.9; O2SAT 83–100
[2023-08-26 06:06] LABS: MANUAL DIFF FLAG NO
[2023-08-26 06:31] LABS: Anion Gap 15 (12-20); Blood Urea Nitrogen 17 mg/dL (9-16); Calcium 9.7 mg/dL (8.4-10.2); Carbon Dioxide 22 mmol/L (22-29); Chloride 107 mmol/L (96-108); Creatinine Clr Calc Pharmacy 68.7; Estimated Glomerular Filt Rate > 60; Glucose Random 124 mg/dL (60-115); Potassium 4.6 mmol/L (3.3-5.1); Sodium 139 mmol/L (135-145)
[2023-08-26 06:32] LABS: Basophils Percent Auto 0.1 % (0-2); Hematocrit 35.5 % (37.0-47.0); Hemoglobin 11.3 g/dl (12.0-16.0); Imm Gran Abs Auto 0.09 X10*3/uL (0.00-0.03); Imm Gran Pct Auto 0.7 % (0.0-0.4); Lymphocytes Absolute Auto 0.9 X10*3/uL (1.2-4.9); Lymphocytes Percent Auto 7.6 % (20-40); Mean Corpuscular HGB Conc 31.8 g/dl (31.0-35.0); Mean Corpuscular Hemoglobin 28.9 pg (27.0-33.0); Mean Corpuscular Volume 90.8 fL (80.0-98.0); Mean Platelet Volume 8.9 fL (9.4-12.3); Monocytes Absolute Auto 0.3 X10*3/uL (0.1-1.2); Monocytes Percent Auto 2.6 % (2-11); Neutrophils Absolute Auto 10.8 x10*3/uL (2.0-8.3); Platelet Count 363 X10*3/uL (160-400); Red Blood Count 3.91 X10*6/uL (4.20-5.50); Red Cell Distribution Width 14.4 % (11.0-16.0); White Blood Count 12.2 X10*3/uL (4.8-10.8)
[2023-08-26] MEDS: Fluticasone/Umeclidinium/Vilanterol 200/62.5/25 BLST.W.DEV 1 PUFF INHALE (07:59)
--- NOTE | 2023-08-26 08:44 | HO.POSTANES ---
Post Anesthesia Evaluation Post Anesthesia Evaluation Date of Service: 08/26/23 Vital Signs: Vital Signs Temp Pulse Pulse Resp BP BP Pulse Ox 08/26/23 08:05 89 18 08/26/23 08:00 97.5 F 97 18 124/84 93 08/26/23 07:00 80 12 129/82 95 08/26/23 06:00 78 12 135/88 93 08/26/23 05:00 73 12 116/86 95 08/26/23 04:00 97.7 F 89 19 150/109 H 95 08/26/23 03:50 108/67 08/26/23 03:00 78 14 138/91 H 96 08/26/23 02:00 86 15 108/67 96 08/26/23 01:00 75 13 117/64 96 08/26/23 00:00 97.5 F 78 16 111/64 96 08/25/23 23:24 76 110/64 08/25/23 23:00 81 14 109/76 95 08/25/23 22:00 78 13 136/86 96 08/25/23 21:00 84 12 135/96 H 96 O2 Del Method O2 Flow Rate 08/26/23 08:05 08/26/23 08:00 Nasal Cannula 2 08/26/23 07:00 Nasal Cannula 2 08/26/23 06:00 Nasal Cannula 2 08/26/23 05:00 Nasal Cannula 2 08/26/23 04:00 Nasal Cannula 3 08/26/23 03:50 08/26/23 03:00 Nasal Cannula 3 08/26/23 02:00 Nasal Cannula 3 08/26/23 01:00 Nasal Cannula 3 08/26/23 00:00 Nasal Cannula 4 08/25/23 23:24 08/25/23 23:00 Nasal Cannula 4 08/25/23 22:00 Nasal Cannula 4 08/25/23 21:00 Nasal Cannula 4 Anesthesia: General Endotracheal-GETA Mental Status: Awake Pain Control: Satisfactory Nausea/Vomiting: None Hydration: Adequate Anesthesia-Related Issues: No Anes. Related Issues
[2023-08-26] MEDS: 0.9 % Sodium Chloride Flush 3 ML SYRINGE IVFLUSH ×3 (08:52→22:31)
[2023-08-26] MEDS: Aspirin Enteric Coated 81 MG TABLET.DR PO (08:52)
[2023-08-26] MEDS: Levothyroxine Sodium 88 MCG TABLET PO (08:52)
--- NOTE | 2023-08-26 09:47 | MHC.CM.PN ---
IMM DELIVERED PT LIVES ALONE. USES A CANE FOR MOBILITY. PT DECLINES TO NAME A HCP AT THIS TIME. PCP DR. HERMOSILLO. DP: HOME, NO SERVICES ANTICIPATED. PT'S FATHER WILL TRANSPORT HOME. CM WILL CONTINUE TO FOLLOW FOR ANY CHANGE TO DC PLAN
[2023-08-26] MEDS: Furosemide 40 MG/4 ML VIAL IVPUSH (11:20)
[2023-08-26] MEDS: oxyCODONE HCl Immed Release 5 MG TABLET PO (11:23)
--- NOTE | 2023-08-26 12:05 | PM.CCPN ---
Subjective Subjective Date of Service: 08/26/23 Interval History: Complains of difficulty in swallowing pill Pain in the neck Critical Care Time (minutes): 25 Physical Exam Vital Signs: Vital Signs: Last Vital Signs Temp 97.5 F 08/26/23 08:00 Pulse 86 08/26/23 11:00 Resp 15 08/26/23 11:00 BP 115/63 08/26/23 11:20 Pulse Ox 92 08/26/23 11:00 O2 Del Method Nasal Cannula 08/26/23 11:00 O2 Flow Rate 2 08/26/23 11:00 Oxygen Flow Rate 2 08/26/23 08:43 BMI result Body Mass Index 33.6 General: no acute distress, okay nourished HEENT: Normocephalic, atraumatic skull, eyes aligned Neck: Normal, no lymphadenopathy, no thyromegaly, tender to touch the surgical site, FRANCISCO drain in place Respiratory system: Bilateral air entry equal, breath sounds normal, no added sounds CVS: No JVD, S1-S2 heard and is normal, no murmur PA: Soft, nontender, no organomegaly : Bladder nonpalpable, no distention of bladder Neuro: Alert, oriented, no focal deficits Objective Data Labs 08/26/23 05:22 08/26/23 05:22 Labs: Laboratory Results - last 24 hr 08/26/23 05:22 WBC 12.2 H RBC 3.91 L Hgb 11.3 L Hct 35.5 L MCV 90.8 MCH 28.9 MCHC 31.8 RDW 14.4 Plt Count 363 MPV 8.9 L Immature Gran % (Auto) 0.7 H Neut % (Auto) 89.0 H Lymph % (Auto) 7.6 L [place] % (Auto) 2.6 Eos % (Auto) 0.0 Baso % (Auto) 0.1 Lymph # (Auto) 0.9 L [place] # (Auto) 0.3 Eos # (Auto) 0.0 Baso # (Auto) 0.0 Abs Immat Gran (auto) 0.09 H Absolute Neuts (auto) 10.8 H Absolute Nucleated RBC 0.000 Nucleated RBC % (auto) 0.0 Sodium 139 Potassium 4.6 Chloride 107 Carbon Dioxide 22 Anion Gap 15 BUN 17 H Creatinine 0.71 Estim Creat Clear Calc 68.7 Estimated GFR > 60 Random Glucose 124 H Calcium 9.7 Progress Note: A&P Assessment and plan (1) Preoperative cardiovascular examination: Status: Acute (2) Left carotid artery stenosis: Status: Acute (3) HTN (hypertension): Status: Acute (4) Hyperlipidemia: Status: Acute (5) Hypothyroidism: Status: Acute Plan 68-year-old lady who is a chronic smoker with past medical history of moderate COPD, hypertension, hyperlipidemia found to have bilateral severe carotid stenosis on surveillance and confirmed with CTA of neck he is admitted to the hospital for carotid endarterectomy. Procedure was uneventful, patient is admitted to ICU for monitoring Hypertension: Status post carotid endarterectomy: Closely monitor the blood pressure Home medication diltiazem 180 mg daily restarted Keep SBP<170mmHg Hypothyroidism: Restarted on levothyroxine 88 mcg daily Hypoxia: Possibly secondary to postoperative and pain related Incentive spirometry as tolerated We will give Lasix 40 mg IV once We will get chest x-ray Hyperlipidemia: We will restart home statins Quality Stroke Does the patient have a stroke diagnosis?: No VTE Prior VTE?: No VTE Risk Level:: Surgical - moderate VTE Device Contraindication: N/A - Device Ordered VTE Drug Contraindication: N/A - Med Ordered
--- NOTE | 2023-08-26 12:36 | HO.VASCPN ---
Subjective Subjective Date of Service: 08/26/23 Interval history: Very pleasant 68-year-old female postop day 1 status post right carotid endarterectomy. Appears to be doing relatively well. Did have some issues last night with some shortness of breath and she was made NPO. This morning minimal hematoma appears to be doing relatively well. A-line Tan and FRANCISCO drain were removed. Physical Exam Vital Signs: Vital Signs: Last Vital Signs Temp 98.5 F 08/26/23 12:00 Pulse 124 H 08/26/23 12:00 Resp 25 H 08/26/23 12:00 BP 116/69 08/26/23 12:00 Pulse Ox 90 L 08/26/23 12:00 O2 Del Method Nasal Cannula 08/26/23 12:00 O2 Flow Rate 2 08/26/23 12:00 Oxygen Flow Rate 2 08/26/23 08:43 BMI result Body Mass Index 33.6 Const: General: cooperative, healthy appearing and no acute distress Orientation/consciousness: oriented to person, oriented to place and oriented to time HEENT: Head: Yes normal to inspection Neck: Carotids: no bruits Chest: Chest palpation & inspection: normal inspection of the chest Resp: Effort & Inspection: normal respiratory effort and able to speak in complete sentences Auscultation: clear to auscultation bilaterally Cardio: Rate: regular rate Heart sounds: S1 normal heart sound present and S2 normal heart sound present GI: Inspection: Yes normal to inspection Skin: Other: Small right neck hematoma General skin exam: no rashes or lesions noted Wounds: no wounds Neuro: General: oriented to person, oriented to place, oriented to time and CN's II-XI intact bilaterally Extrem: General: Yes normal to inspection, Yes full ROM and Yes no clubbing, cyanosis or edema Psych: Appearance: grossly normal and well kempt Speech and movement: Normal speech and movement present Affect: normal affect Progress Note: A&P Assessment and plan (1) Carotid stenosis, right: Status: Acute Assessment and Plan: In short patient is status post right carotid endarterectomy. Appears to be doing relatively well. Only issue at the current time her desaturations. She is going into the low 80s. She was given some Lasix and chest x-ray was ordered. She is currently using incentive spirometer and is up in a chair. I will keep her for an additional day. Should she be okay tomorrow plan for discharge if her respiratory status improves. Thank you for sweeper operator highways assistance in his care. Time Spent With Patient Time: Total time managing care of this patient today ____ minutes. Procedures Date of Service Date of Service: 08/26/23 Quality Stroke Does the patient have a stroke diagnosis?: No VTE Prior VTE?: No VTE Risk Level:: Surgical - moderate VTE Device Contraindication: N/A - Device Ordered VTE Drug Contraindication: N/A - Med Ordered
[2023-08-26] MEDS: Morphine Sulfate 2 MG/ML CARTRIDGE IVPUSH (22:33)
[2023-08-27] VITALS: BP 102/50; PULSE 83; RESP 17; TEMP 36.4; O2SAT 94
[2023-08-27] MEDS: Morphine Sulfate 2 MG/ML CARTRIDGE IVPUSH (02:49)
[2023-08-27 04:00] VITALS: BP 131/63; PULSE 78; RESP 16; TEMP 36.4; O2SAT 95
[2023-08-27 06:00] VITALS: BMI 34.3
[2023-08-27] MEDS: Levothyroxine Sodium 88 MCG TABLET PO (06:35)
[2023-08-27 07:39] VITALS: BP 146/65; PULSE 76; RESP 20; TEMP 36.4; O2SAT 95
[2023-08-27] MEDS: Fluticasone/Umeclidinium/Vilanterol 200/62.5/25 BLST.W.DEV 1 PUFF INHALE (07:45)
[2023-08-27 07:48] VITALS: PULSE 95; RESP 20; O2SAT 94
[2023-08-27] MEDS: 0.9 % Sodium Chloride Flush 3 ML SYRINGE IVFLUSH (09:49)
[2023-08-27] MEDS: Aspirin Enteric Coated 81 MG TABLET.DR PO (09:50)
[2023-08-27] MEDS: dilTIAZem HCL CD 180 MG CAP.ER.24H PO (09:50)
--- NOTE | 2023-08-27 10:21 | P.DS_ITS ---
DS: Providers Provider Date of Service: 08/27/23 Date of admission: 08/25/23 06:04 Primary care physician: Josee Hadley MD Consults: 08/26/23 14:01 Consult to Hospitalist Routine Comment: Consulting Provider: Hospitalist Reason For Exam: Dr. Tata drew hospitalist consult for COPD DS: Diagnosis Discharge Diagnosis (1) Carotid stenosis, right: Status: Acute DS: Summary Hospital Course Hospital Course: Patient underwent carotid endarterectomy on 08/25/2023. Postoperatively was observed in the ICU. She did have episodes of desats and was not breathing well. She was given incentive spirometry and diuresed. Postop day 2 was doing well. She was subsequently discharged. Time Attestation Discharge Coordination Time (in mins): 35 Quality: Safe Use of Opioids Does Pt have an Active Cancer Diagnosis on the Problem List?: No Quality: Stroke Does the patient have a stroke diagnosis?: No Physical Exam Vital Signs: Vital Signs: Last Vital Signs Temp 97.5 F 08/27/23 07:39 Pulse 95 08/27/23 07:48 Resp 20 08/27/23 07:48 BP 146/65 H 08/27/23 07:39 Pulse Ox 95 08/27/23 07:39 O2 Del Method Nasal Cannula 08/27/23 07:39 O2 Flow Rate 1 08/27/23 07:39 Oxygen Flow Rate 2 08/26/23 08:43 BMI result Body Mass Index 34.3 Const: General: cooperative, healthy appearing and no acute distress Orientation/consciousness: oriented to person, oriented to place and oriented to time HEENT: Head: Yes normal to inspection Neck: Carotids: no bruits Chest: Chest palpation & inspection: normal inspection of the chest Resp: Effort & Inspection: normal respiratory effort and able to speak in complete sentences Auscultation: clear to auscultation bilaterally Cardio: Rate: regular rate Heart sounds: S1 normal heart sound present and S2 normal heart sound present GI: Inspection: Yes normal to inspection Skin: Other: Neck incision healing well General skin exam: no rashes or lesions noted Wounds: no wounds Neuro: General: oriented to person, oriented to place, oriented to time and CN's II-XI intact bilaterally Extrem: General: Yes normal to inspection, Yes full ROM and Yes no clubbing, cyanosis or edema Psych: Appearance: grossly normal and well kempt Speech and movement: Normal speech and movement present Affect: normal affect DS: Data Data Completed and Pending Pending studies at discharge: Pending at discharge 08/25/23 09:02 Surgical [PTH] Routine Discharge Plan Discharge Anticipated Discharge Date/Time: 08/27/23 10:16 Patient Disposition: Home, Self-Care Discharge Diagnosis: Status post carotid endarterectomy Referrals: Josee Hadley MD [Primary Care Provider] - 1 Week Discharge Medications: New oxycodone-acetaminophen [Percocet] 5-325 mg tablet 1 tab PO Q8H PRN (Reason: pain) Qty: 10 0RF Rx Instructions: Partial Fill upon patient request. Continued montelukast 10 mg tablet 10 mg PO DAILY Qty: 90 3RF levothyroxine [Synthroid] 88 mcg tablet 88 mcg PO DAILY Qty: 90 3RF Trelegy Ellipta 200-62.5-25 mcg blister with device 1 inh inhalation DAILY Qty: 60 5RF cyanocobalamin (vitamin B-12) 1,000 mcg/mL solution 100 mcg IM QWEEK Qty: 12 3RF albuterol sulfate 0.63 mg/3 mL solution for nebulization 0.63 mg inhalation QID PRN (Reason: shortness of breath or wheezing) Qty: 180 1RF diltiazem HCl [Cardizem CD] 180 mg capsule,extended release 24hr 180 mg PO DAILY Qty: 90 1RF ropinirole 0.25 mg tablet 0.5 mg PO BEDTIME Qty: 180 1RF Rx Instructions: administer 1-3 hours before bedtime aspirin 81 mg tablet,delayed release (DR/EC) 81 mg PO DAILY Qty: 90 3RF albuterol sulfate [Ventolin HFA] 90 mcg/actuation HFA aerosol inhaler 2 puff PO Q6H PRN (Reason: shortness of breath or wheezing) Qty: 8 5RF Repatha SureClick 140 mg/mL pen injector 140 mg subcut Q2W Qty: 2 6RF folic acid 1 mg tablet 1 mg PO DAILY Patient Comments: only taking once a week meloxicam 15 mg tablet 15 mg PO DAILY Qty: 20 0RF Rx Instructions: schedule next PCP appt for more refills rosuvastatin [Crestor] 10 mg tablet 10 mg PO DAILY Qty: 90 3RF Discharge Orders: Discharge Order (Routine); Ordered 08/27/23 Ordered By: Robert Payton Diet: Advance to usual diet Activity on Discharge: As tolerated Stand Alone Forms: Patient Portal Discharge page Print Language: Luxembourger Activity Restrictions/Additional Instructions: Skin tape is on the incision and will fall off in about 4-5 days. You may shower starting tomorrow Take it easy today and you may ambulate around the house. Within 24 hours you can resume normal activity You may climb a flight of stairs as tolerated Do not lift anything heavier than a gallon of milk No driving until seen by Dr. Payton in follow-up See Dr. Payton in follow-up in approximately 2 weeks time. You should already have an appointment if not please call my office at [phone] Please use Tylenol as needed for pain. If pain is worse you can use your prescription pain med If you notice excessive bleeding from the neck please immediately call my office or return to the emergency room. Care Plan Goals: Carotid follow-up Health Concerns: Status post carotid endarterectomy Plan of Treatment: Ultrasound surveillance of carotid Assessment: Status post carotid endarterectomy
--- NOTE | 2023-08-27 10:46 | MHC.CM.PN ---
Patient has been medically cleared for dc to home today, self care. Last IMM was addressed yesterday.
[2023-08-27] MEDS: oxyCODONE HCl Immed Release 5 MG TABLET PO (11:33)
== END 2023-08-27 13:12 | disposition home or self-care (01) | DRG 39 ==
LOC: HO.SSSA 06:08 → HO.ICU 12:00 → HO.IMC 08-26 15:08
PROVIDERS: Nurse Practitioner; Admitting Provider Surgery Vascular Surgery; PCP Internal Medicine; Visit Provider Surgery Vascular Surgery
PROC: 03CM0ZZ Extirpation of Matter from Right External Carotid Artery, Open Approach (ICD-10-PCS; CPT 35301; principal; 2023-08-25 07:30)
DX: I65.21 Occlusion and stenosis of right carotid artery (principal); J44.9 Chronic obstructive pulmonary disease, unspecified; I10 Essential (primary) hypertension; E78.5 Hyperlipidemia, unspecified; R09.02 Hypoxemia; E03.9 Hypothyroidism, unspecified; F17.210 Nicotine dependence, cigarettes, uncomplicated; Z71.6 Tobacco abuse counseling; Z79.51 Long term (current) use of inhaled steroids; Z79.82 Long term (current) use of aspirin; Z79.620 Long term (current) use of immunosuppressive biologic; Z79.890 Hormone replacement therapy; Z79.899 Other long term (current) drug therapy
CPT/HCPCS: 36415; 71045; 80048; 85025; 85027; 85610; 85730; 86850; 86900; 86901; 88304; 88311; 94640; A4649; C1758; C1768; C9145; J0131; J0690; J1100; J1170; J1644; J1940; J2250; J2270; J2305; J2371; J2405; J2704; J2795; J3010

== ENCOUNTER → 2023-08-25 06:04 | Outpatient (BNV) | payer MEDICARE, SELFPAY | PROVIDERS: Admitting Provider Surgery Vascular Surgery; PCP Internal Medicine; Visit Provider Surgery Vascular Surgery | DX: I65.21 Occlusion and stenosis of right carotid artery (principal) | CPT/HCPCS: 35301; 99024 ==

== ENCOUNTER → 2023-08-25 06:04 | Outpatient (BNV) | payer MEDICARE, SELFPAY | PROVIDERS: Admitting Provider Surgery Vascular Surgery; PCP Internal Medicine; Visit Provider Internal Medicine Critical Care Medicine | DX: I65.22 Occlusion and stenosis of left carotid artery (principal); I10 Essential (primary) hypertension; E78.5 Hyperlipidemia, unspecified; E03.9 Hypothyroidism, unspecified | CPT/HCPCS: 99222; 99232 ==

== ENCOUNTER 2023-09-01 14:20 | Outpatient (AMB) | payer MEDICARE, SELFPAY ==
--- NOTE | 2023-09-01 14:20 | A.OFFPC_ITS ---
Intake Visit Reasons: Telehealth discuss labs Intake Note: Telehealth to discuss lab results. Allergies atorvastatin [Lipitor] Allergy (Severe, Verified 09/01/23 14:21) nausea bupropion [Wellbutrin] Allergy (Severe, Verified 09/01/23 14:21) Rash levofloxacin [Levaquin] Allergy (Severe, Verified 09/01/23 14:21) Rash Sulfa (Sulfonamide Antibiotics) Allergy (Severe, Verified 09/01/23 14:21) burning sensation red burn manuel amitriptyline Adverse Reaction (Severe, Verified 09/01/23 14:21) headaches, migraines metoprolol Adverse Reaction (Intermediate, Verified 09/01/23 14:21) Nausea topiramate [Topamax] Adverse Reaction (Unknown, Verified 09/01/23 14:21) sleepiness Tobacco use date assessed: 09/01/23 Dental Screening Dental Screen Date: 06/11/23 HPI Telehealth discuss labs HPI Details This is Telehealth. Pt underwent right carotid endarterectomy and re covered well. COPD is controlled on Trelegy and patient has been taking rosuvastatin and Repatha for hyperlipidemia and levothyroxine for hypothyroidism. She has a follow-up with Dr. Payton in 2 weeks. [facility] Medical History Ambulates with cane History of postoperative nausea Vitamin D deficiency Cough Knee pain, right DVT (deep venous thrombosis) (~2016) Leg pain Vitamin B12 deficiency Carotid stenosis, bilateral Diastolic CHF Anxiety Tension headache Migraine headache with aura HTN (hypertension) Hyperlipidemia Hypothyroidism Lung nodule COPD (chronic obstructive pulmonary disease) Surgical History History of decompression of ulnar nerve Hx of vaginal hysterectomy (~1994) Hx of laparoscopy History of esophagogastroduodenoscopy (EGD) H/O colonoscopy History of laryngoscopy Family History Father HTN (hypertension) Mother COPD (chronic obstructive pulmonary disease) HTN (hypertension) Social History Household Members: Family Household Members Other:: 88 yr old mom Housing: House Are you a primary insurance healthcare consultant to a significant other at home: Yes (88 yr old mom, looking for help post-op, brother can help with some care) Do you presently have visiting nurse or other home services: No Patient Tobacco Use Status: Current everyday Tobacco user Tobacco use type: Cigarette Cigarettes Per Day: 5 Years Smoked: 46 Packs per year/per ci.50 e-Cigarette/Vaping Use: Never Used service: No Current occupational status: retired Cognitive needs: No Hearing needs: No Vision needs: Yes Questionnaire Thrive Questionnaire Date Thrive assessed: 08/26/23 DEJA-7 AMB Questionnaire DEJA-7 Date DEJA - 7 assessed: 05/09/23 Source: Developed by Drs. Maciel Millan, Brittany Tompkins, Ashok Kendrick and colleagues, with an educational rosalia from [email or web address]. Review of Systems Const All systems reviewed & are unremarkable except as noted in HPI and below ENT Reports no additional complaints Card Reports no additional complaints Resp Reports no additional complaints GI Reports no additional complaints Reports no additional complaints Physical exam (Primary Care) Tobacco/Smoking Status: Tobacco use Status Tobacco use date assessed 09/01/23 09/01/23 14:23 Patient Tobacco Use Status Current everyday Tobacco 09/01/23 14:23 Tobacco use type Cigarette 09/01/23 14:23 e-Cigarette/Vaping Use Never Used 09/01/23 14:23 Thrive Assessment: Date of Thrive Assessment Date Thrive assessed 08/26/23 09/01/23 14:23 Telehealth Telehealth Telehealth Platform: Telephone Location of provider rendering services: practice address Location of patient: address on file Patient Identification confirmed using: Name, : Yes Telehealth method: voice only Patient verbally consented to treatment: Yes Patient verbally consented to billing insurance company: Yes Patient informed of any privacy concerns related to visit: Yes Minutes spent on Phone/Video with Pt.: 15 Assessment and Plan Assessment & Plan (1) History of right-sided carotid endarterectomy: Code(s): Z98.890 - Other specified postprocedural states Plan: Follow-up with vascular surgeon (2) Diastolic CHF: Comment: Echo 02/2020 nl EF, diastolic dysfunction, intolerant to metoprolol Code(s): I50.30 - Unspecified diastolic (congestive) heart failure Plan: Continue current medications (3) COPD (chronic obstructive pulmonary disease): Code(s): J44.9 - Chronic obstructive pulmonary disease, unspecified Plan: Continue Trelegy and albuterol as needed Coding Level of Care Code Tele Est Pt Level 3 (16379) Diagnoses History of right-sided carotid endarterectomy Z98.890 Diastolic CHF I50.30 COPD (chronic obstructive pulmonary disease) J44.9
== END 2023-09-01 15:07 | disposition home or self-care (01) ==
LOC: HO.HMGC 14:20
PROVIDERS: PCP Internal Medicine; Visit Provider Internal Medicine
DX: Z98.890 Other specified postprocedural states (principal); I50.30 Unspecified diastolic (congestive) heart failure; J44.9 Chronic obstructive pulmonary disease, unspecified
CPT/HCPCS: 99442

== ENCOUNTER 2023-09-09 15:11 | Outpatient (AMB) | payer MEDICARE, SELFPAY ==
[2023-09-09 15:12] VITALS: BP 134/56; BMI 34.2
--- NOTE | 2023-09-09 15:12 | MHC.OFFVIS ---
Vital Signs 09/09/23 15:12 09/09/23 15:22 Height 4 ft 11.5 in Weight 172 lb BMI 34.2 BP 134/56 L 130/68 Blood Pressure Location Rt brachial Lt brachial Position Sitting Sitting Intake Visit Reasons: 2 week follow up right carotid endarterectomy Intake Note: 2 week follow up Right CEA 08/25/23. Pt states numbness in jaw and even side of mouth, states she isn't quite eating like she did before due to numbness. Accompanied by: Self / Same As Patient Allergies atorvastatin [Lipitor] Allergy (Severe, Verified 09/09/23 15:16) nausea bupropion [Wellbutrin] Allergy (Severe, Verified 09/09/23 15:16) Rash levofloxacin [Levaquin] Allergy (Severe, Verified 09/09/23 15:16) Rash Sulfa (Sulfonamide Antibiotics) Allergy (Severe, Verified 09/09/23 15:16) burning sensation red burn manuel amitriptyline Adverse Reaction (Severe, Verified 09/09/23 15:16) headaches, migraines metoprolol Adverse Reaction (Intermediate, Verified 09/09/23 15:16) Nausea topiramate [Topamax] Adverse Reaction (Unknown, Verified 09/09/23 15:16) sleepiness HPI HPI 2 week follow up right carotid endarterectomy: Details: Very pleasant 68-year-old female status post right carotid endarterectomy. Reports that she is doing significantly better. Overall no pain or discomfort. She does know that she did have slight tongue deviation which continues to improve. She reports that the numbness also has improved. She is now for routine postop follow-up. [facility] Medical History (Updated 09/10/23 @ 07:45 by Robert Payton MD) Ambulates with cane History of postoperative nausea Vitamin D deficiency Cough Knee pain, right DVT (deep venous thrombosis) (~2016) Leg pain Vitamin B12 deficiency Carotid stenosis, bilateral Diastolic CHF Anxiety Tension headache Migraine headache with aura HTN (hypertension) Hyperlipidemia Hypothyroidism Lung nodule COPD (chronic obstructive pulmonary disease) Surgical History (Updated 09/09/23 @ 15:18 by RIK Roman) H/O carotid endarterectomy History of decompression of ulnar nerve Hx of vaginal hysterectomy (~1994) Hx of laparoscopy History of esophagogastroduodenoscopy (EGD) H/O colonoscopy History of laryngoscopy Family History Father HTN (hypertension) Mother COPD (chronic obstructive pulmonary disease) HTN (hypertension) Social History Household Members: Family Household Members Other:: 88 yr old mom Housing: House Are you a primary team primary care physician to a significant other at home: Yes (88 yr old mom, looking for help post-op, brother can help with some care) Do you presently have visiting nurse or other home services: No Patient Tobacco Use Status: Current everyday Tobacco user Tobacco use type: Cigarette Cigarettes Per Day: 5 Years Smoked: 46 e-Cigarette/Vaping Use: Never Used service: No Current occupational status: retired Cognitive needs: No Hearing needs: No Vision needs: Yes Review of Systems Const All systems reviewed & are unremarkable except as noted in HPI and below Reports no additional complaints ENT Reports Normal hearing present Card Denies chest pain, Denies chest pain at rest, Denies chest pain with activity and Denies pedal edema Resp Denies cough GI Denies abdominal pain Musc Denies abnormal gait, Denies muscle cramps and Denies radiating pain into limb Skin/Breast Denies skin ulcer and Denies wounds Neuro Reports Normal hearing present and Denies abnormal gait Psych Reports no additional complaints Physical Exam Vital Signs: Last Vital Signs BP 130/68 09/09/23 15:22 BMI result Body Mass Index 34.2 Const General: cooperative, healthy appearing and comfortable Orientation/consciousness: oriented to person, oriented to place and oriented to time HEENT Head: Yes normal to inspection Neck Neck: Yes normal visual inspection Carotids: no bruits Chest Chest palpation & inspection: normal inspection of the chest Resp Effort & Inspection: normal respiratory effort and able to speak in complete sentences Auscultation: clear to auscultation bilaterally, no crackles, no rales, no rhonchi and no wheezes Cardio Rate: regular rate Rhythm: regular rhythm Heart sounds: S1 normal heart sound present and S2 normal heart sound present Bruits: no carotid bruits Peripheral pulses: Peripheral pulses 2+ throughout GI Inspection: Yes normal to inspection Skin Other: Right neck incision healing well Wounds: no wounds Hair: normal Neuro General: oriented to person, oriented to place and oriented to time Cranial nerves: Yes CN's II-XII intact bilaterally and Yes Normal hearing present Cognition (Neuro): normal cognition Motor exam (neuro): 5/5 motor strength present throughout Extrem Other: venous exam: No significant superficial varicosities or spider telangiectasias, minimal edema General: No clubbing, No cyanosis and No edema Psych Appearance: grossly normal Mental Status: mental status grossly normal Speech and movement: Normal speech and movement present Assessment & Plan Assessment & Plan (1) Carotid stenosis, bilateral: Comment: 08/25/2023 - right carotid endarterectomy Code(s): I65.23 - Occlusion and stenosis of bilateral carotid arteries Category: Medical Plan: In short patient is doing well postop. She will require routine carotid surveillance. I have scheduled her for 3 month carotid ultrasound follow-up. She will follow up with me after testing. Thank you for allowing us to assist in her care. If there are any questions or concerns please do not hesitate to contact us. Orders: Orders US carotid duplex BI 3 Months I65.23 - Occlusion and stenosis of bilateral carotid arteries Coding Level of Care Code Est Pt Level 3 (23067) Diagnoses Carotid stenosis, bilateral I65.23
[2023-09-09 15:22] VITALS: BP 130/68
== END 2023-09-09 15:49 | disposition home or self-care (01) ==
PROVIDERS: PCP Internal Medicine; Visit Provider Surgery Vascular Surgery
DX: I65.23 Occlusion and stenosis of bilateral carotid arteries (principal)
CPT/HCPCS: 99024

== ENCOUNTER → 2023-09-09 15:11 | Outpatient (BNVA) | payer MEDICARE, SELFPAY | PROVIDERS: PCP Internal Medicine; Visit Provider Surgery Vascular Surgery | DX: I65.23 Occlusion and stenosis of bilateral carotid arteries (principal) | CPT/HCPCS: 99212 ==

== ENCOUNTER 2023-12-11 15:20 | Outpatient (REF) | payer MEDICARE, SELFPAY ==
--- NOTE | ~2023-12-11 | US_ITS ---
EXAMINATION: US EXTRACRANIAL CAROTID DUPLEX, BILATERAL CLINICAL INFORMATION: Occlusion of carotid arteries; history of right carotid endarterectomy 08/25/2023 COMPARISON: None available. TECHNIQUE: Real-time ultrasound and Doppler techniques (integrating B-mode 2-D vascular images, Doppler spectral analysis and color-flow Doppler imaging) were utilized to interrogate the extracranial carotid arteries, the vertebral arteries and proximal subclavian arteries bilaterally. The degree of stenosis is determined by criteria similar to NASCET. FINDINGS: Right Side: 1. There is mild atherosclerotic plaque seen in the bifurcation/proximal ICA region. 2. The common carotid artery PSV proximally is 83 cm/s and distally 103 cm/s. 3. The proximal internal carotid artery velocities are 148 cm/s systolic and 42 cm/s diastolic. 4. The proximal external carotid artery PSV is 188 cm/s. 5. The vertebral artery shows antegrade flow. 6. The subclavian artery waveforms are normal. Left Side: 1. There is moderate atherosclerotic plaque seen in the bifurcation/proximal ICA region. 2. The common carotid artery PSV proximally is 109 cm/s and distally 66 cm/s. 3. The proximal internal carotid artery velocities are 111 cm/s systolic and 39 cm/s diastolic. 4. The proximal external carotid artery PSV is 102 cm/s. 5. The vertebral artery shows antegrade flow. However, there is biphasic morphology of the pulse Doppler spectral waveform ( bony waveform ), which can be a pre-steal state. 6. The subclavian artery waveforms are normal. US/US carotid duplex BI IMPRESSION: 1. RIGHT: Minimal, non-hemodynamically significant stenosis of the proximal right internal carotid artery corresponding to a 0-49% stenosis by velocity criteria. 2. LEFT: Moderate, hemodynamically significant stenosis of the proximal left internal carotid artery corresponding to a 50-79% stenosis by velocity criteria. 3. Biphasic morphology of the vertebral arteries spectral doppler, which may be indicative of a pre-subclavian steal state. Electronically signed by: Zac Alexander DO 12/13/2023 10:36 PM EDT
== END 2023-12-11 15:21 | disposition home or self-care (01) ==
LOC: HO.US 15:20
PROVIDERS: PCP Internal Medicine; Visit Provider Surgery Vascular Surgery
DX: I65.23 Occlusion and stenosis of bilateral carotid arteries (principal)
CPT/HCPCS: 93880

== ENCOUNTER 2023-12-18 12:42 | Outpatient (AMB) | payer MEDICARE, SELFPAY ==
[2023-12-18 12:53] VITALS: BP 108/68; BMI 34.2
--- NOTE | 2023-12-18 12:53 | A.OFFVIS_ITS ---
Vital Signs 12/18/23 12:53 Height 4 ft 11.5 in Weight 172 lb BMI 34.2 BP 108/68 Blood Pressure Location Rt brachial Position Sitting Intake Visit Reasons: 3 mo carotid US 12/11/23 Intake Note: 3 mo follow up carotid US 12/11/23b s/p R CEA 08/25/23. Pt states that she has been having some issues with her throat since having anesthesia. Has trouble speaking, swallowing and mucus build up in throat since last seen. Accompanied by: Self / Same As Patient Allergies atorvastatin [Lipitor] Allergy (Severe, Verified 12/18/23 13:00) nausea bupropion [Wellbutrin] Allergy (Severe, Verified 12/18/23 13:00) Rash levofloxacin [Levaquin] Allergy (Severe, Verified 12/18/23 13:00) Rash Sulfa (Sulfonamide Antibiotics) Allergy (Severe, Verified 12/18/23 13:00) burning sensation red burn manuel amitriptyline Adverse Reaction (Severe, Verified 12/18/23 13:00) headaches, migraines metoprolol Adverse Reaction (Intermediate, Verified 12/18/23 13:00) Nausea topiramate [Topamax] Adverse Reaction (Unknown, Verified 12/18/23 13:00) sleepiness HPI HPI 3 mo carotid US 12/11/23: Details: Very pleasant 68-year-old female presents for surveillance follow-up regarding her carotids. She had undergone right carotid endarterectomy with la on 08/25/2023. She has been doing relatively well since. She does have complaints of difficulty clearing secretions in addition to swallowing. It improved slightly postoperatively but still is persistent and we are nearly 3 months out. She does have a prior history of esophagoscopy and laryngoscopy of which I am not sure about and she was unclear about the reasoning behind it. She now presents for routine surveillance follow-up. [facility] Medical History Ambulates with cane History of postoperative nausea Vitamin D deficiency Cough Knee pain, right DVT (deep venous thrombosis) (~2017) Leg pain Vitamin B12 deficiency Carotid stenosis, bilateral Diastolic CHF Anxiety Tension headache Migraine headache with aura HTN (hypertension) Hyperlipidemia Hypothyroidism Lung nodule COPD (chronic obstructive pulmonary disease) Surgical History H/O carotid endarterectomy History of decompression of ulnar nerve Hx of vaginal hysterectomy (~1994) Hx of laparoscopy History of esophagogastroduodenoscopy (EGD) H/O colonoscopy History of laryngoscopy Family History Father HTN (hypertension) Mother COPD (chronic obstructive pulmonary disease) HTN (hypertension) Social History Household Members: Family Household Members Other:: 88 yr old mom Housing: House Are you a primary student career development specialist to a significant other at home: Yes (88 yr old mom, looking for help post-op, brother can help with some care) Do you presently have visiting nurse or other home services: No Patient Tobacco Use Status: Current everyday Tobacco user Tobacco use type: Cigarette Cigarettes Per Day: 5 Years Smoked: 46 e-Cigarette/Vaping Use: Never Used service: No Current occupational status: retired Cognitive needs: No Hearing needs: No Vision needs: Yes Review of Systems Const All systems reviewed & are unremarkable except as noted in HPI and below Reports no additional complaints ENT Reports Normal hearing present Card Denies chest pain, Denies chest pain at rest, Denies chest pain with activity and Denies pedal edema Resp Denies cough GI Denies abdominal pain Musc Denies abnormal gait, Denies muscle cramps and Denies radiating pain into limb Skin/Breast Denies skin ulcer and Denies wounds Neuro Reports Normal hearing present and Denies abnormal gait Psych Reports no additional complaints Physical Exam Vital Signs: Last Vital Signs BP 108/68 12/18/23 12:53 BMI result Body Mass Index 34.2 Const General: cooperative, healthy appearing and comfortable Orientation/consciousness: oriented to person, oriented to place and oriented to time HEENT Head: Yes normal to inspection Neck Neck: Yes normal visual inspection Carotids: no bruits Chest Chest palpation & inspection: normal inspection of the chest Resp Effort & Inspection: normal respiratory effort and able to speak in complete sentences Auscultation: clear to auscultation bilaterally, no crackles, no rales, no rhonchi and no wheezes Cardio Rate: regular rate Rhythm: regular rhythm Heart sounds: S1 normal heart sound present and S2 normal heart sound present Bruits: no carotid bruits Peripheral pulses: Peripheral pulses 2+ throughout GI Inspection: Yes normal to inspection Skin Other: Right neck incision well healed Wounds: no wounds Hair: normal Neuro General: oriented to person, oriented to place and oriented to time Cranial nerves: Yes CN's II-XII intact bilaterally and Yes Normal hearing present Cognition (Neuro): normal cognition Motor exam (neuro): 5/5 motor strength present throughout Extrem Other: venous exam: No significant superficial varicosities or spider telangiectasias, minimal edema General: No clubbing, No cyanosis and No edema Psych Appearance: grossly normal Mental Status: mental status grossly normal Speech and movement: Normal speech and movement present Assessment & Plan Assessment & Plan (1) Carotid stenosis, bilateral: Comment: 08/25/2023 - right carotid endarterectomy Code(s): I65.23 - Occlusion and stenosis of bilateral carotid arteries Category: Medical Plan: In short patient has done well status post right carotid endarterectomy. We will schedule her for 6 month carotid arterial surveillance. Of concern is her difficulty to swallow. I will place a referral for ENT for possible scope. We did discuss routine risk factor modification and she will follow up with us in approximately 6 months. She can return to us sooner should there be any issues. Thank you for allowing us to assist in her care. If there are any questions or concerns please do not hesitate to contact us. Please note a longitudinal relationship has been created with the patient and we have been following and surveillance this chronic condition. Orders: Orders US carotid duplex BI 6 Months I65.23 - Occlusion and stenosis of bilateral carotid arteries Coding Level of Care Code Est Pt Level 4 (41574) Complex EM visit Add On G2211 Diagnoses Carotid stenosis, bilateral I65.23
== END 2023-12-18 13:40 | disposition home or self-care (01) ==
PROVIDERS: PCP Internal Medicine; Visit Provider Surgery Vascular Surgery
DX: I65.23 Occlusion and stenosis of bilateral carotid arteries (principal)
CPT/HCPCS: 99213; G2211

== ENCOUNTER → 2023-12-18 12:42 | Outpatient (BNVA) | payer MEDICARE, SELFPAY | PROVIDERS: PCP Internal Medicine; Visit Provider Surgery Vascular Surgery | DX: I65.23 Occlusion and stenosis of bilateral carotid arteries (principal); R13.10 Dysphagia, unspecified; R47.9 Unspecified speech disturbances | CPT/HCPCS: 99212 ==

== ENCOUNTER 2024-06-17 10:51 | Outpatient (REF) | payer MEDICARE, SELFPAY ==
--- NOTE | ~2024-06-17 | US_ITS ---
EXAMINATION: BILATERAL CAROTID ULTRASOUND WITH DOPPLER HISTORY: I65.23 - Occlusion and stenosis of bilateral carotid arteries. History of right carotid endarterectomy 08/25/2023. COMPARISON: Comparison is made with the prior examination dated 12/11/2023. TECHNIQUE: Real time and Color and Spectral doppler ultrasonography of the carotid and vertebral arteries was performed in multiple planes. FINDINGS: There is mild plaque in the right internal carotid artery and moderate plaque in the left internal carotid artery. VERTEBRAL FLOW DIRECTION: Antegrade bilaterally. PEAK SYSTOLIC VELOCITIES (in cm/sec): RIGHT: CCA: Prox: 87.0 Dist: 96.6 ICA: Prox: 134 Mid: 127 Dist: 151 ICA/CCA Ratio: 1.56 ECA: 193 Peak ICA EDV: 38.4 LEFT: CCA: Prox: 119 Dist: 78.5 ICA: Prox: 164 Mid: 171 Dist: 169 ICA/CCA Ratio: 1.44 ECA: 127 Peak ICA EDV: 47.2 US/US carotid duplex BI IMPRESSION: Findings consistent with 0-49% stenosis of the right internal carotid artery and 50-79% stenosis of the left internal carotid artery. Electronically signed by: Maciel Marcelino MD 06/18/2024 02:09 PM [facility]
--- OUTSIDE RECORDS SUMMARY | 2024-06-17 13:09 | XMS_ITS | Data Portability ---
Author Organization [place] - [facility], Allergy Address [address] [address] Care Team Providers Care Box Truck Washer Name Role Phone CHINTAN HEROMSILLO Referring Provider [phone] KRISTINA SANTIAGO Referring Provider Assessment Encounter Date Assessment Date Assessment LastModified by Organization Details LastModified Time 02/10/2024 02/10/2024 Physical exam findings confirm oral candidiasis which will be treated with a course of nystatin. This would explain her taste disturbance as well as a sensation of thick mucus in the mouth. Additionally physical exam shows tongue tip deviation to the right with some atrophy of the right tongue. This is likely secondary to the vascular surgery she had. Possibility of direct injury to the nerve during carotid endarterectomy versus vascular insult at the brainstem level. Fiberoptic laryngoscopy was benign with no vocal cord paralysis. MRI brain, brainstem with and without contrast may help further identify any concerns. She wishes to review the results with a telehealth. 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 Patient declined at this time as she has significant responsibility caring for her mother with dementia in her home. She has made some progress with her nystatin for thrush. She is now aware of the importance of mouthwash after inhaled steroid. If she needs additional nystatin over the next 2 to 3 months she may contact the office, otherwise she will likely receive refills through her primary care as needed in the future [email or web address] Not available 03/15/2024 15:42:30 Plan of Treatment Reminders Order Date Submit Date Provider Last Modified By Organization Details Last Modified Time Details Appointments None recorded. Lab None recorded. Referral None recorded. Procedures None recorded. Surgeries None recorded. Imaging MRI, brain + brain stem, w/wo contrast - eval for vascular injury. 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 Patient InstructionsNo instructions recorded. Reason for Referral None Reported. Results Created Date Observation Date Name Description Value Unit Range Abnormal Flag Note LastModifiedBy Organization Detail LastModifiedTime 03/01/20 24 02/26/2024 MRI, brain + brain stem, w/wo contr ast [facility] Access ion Number : [id number] Patien t Name: eLah Finch Record Number : [id number] Date of : 1954 Date of Exam: 2023 Referr ing Physic reed: Darnell Alarcon [facility] [address] [place] [address] Exam: MR Brain (C-/C+ ) CPT 00213 Room Descri ption: [facility] 3.0T MR Brain (C-/C+ ) CPT 58065 INDICA TION / CLINIC AL QUESTI ON: Hypogl ossal nerve palsy eval for vascul ar injury , new right hypogl ossal nerve palsy after R CEA TECHNI QUE: Multip lanar, multis equenc e MRI of the brain was perfor med with and withou t intrav enous contra st. 14 mL Dotare m intrav enous contra st was admini stered . COMPAR SHAHANA: None. FINDIN GS: BRAIN and EXTRA- AXIAL SPACES : The midlin e struct ures, includ ing sella, corpus callos um, and cranio cervic al juncti on, are unrema rkable . There is no mass effect , midlin e shift, or efface ment of the basal cister ns. On diffus ion weight ed imagin g, there are no region s of restri cted diffus ion to indica te an acute or subacu te infarc t. There is no eviden ce of intrac ranial hemorr triny on suscep tibili ty sensit dayanara sequen ce. Mild scatte red foci of T2 prolon gation are seen in the white matter . Ventri cles, cister ns, and sulci are normal in size and config uratio n, withou t hydroc ephalu s. No abnorm al extra- axial fluid collec tions are seen. Mening eal surfac es are normal . High-r esolut ion of the basal cister ns demons trates no efface ment of the cister ns. No nodula rity, enhanc ement, or efface ment of the hypogl ossal nerves is demons trated . No abnorm al intrac ranial enhanc ement is seen. Major intrac ranial flow voids are preser sagrario. EXTRAC RANIAL SOFT TISSUE S: Orbits are unrema rkable . Parana rebeca sinuse s and mastoi ds are unrema rkable . BONES: Marrow signal is preser sagrario. IMPRES EMERY: 1. No acute/ subacu te infarc t, mass, hemorr triny, or other acute intrac ranial abnorm ality. 2. Mild T2/FLA IR hyperi ntense foci in the white matter , nonspe cific but most likely reflec ting chroni c small vessel diseas e. 3. Note that MRI brain does not provid e full diagno stic evalua tion of the vessel s. If comple te evalua tion for vascul ar injury is indica alfonzo, sugges t furthe r evalua tion with CTA or MRA. Electr onical ly Signed By: Gloria Dinh MD [email or web address] [facility] ([facility]) [address], [place], [address], 03/03/2024 16:51:42 Result Notes None recorded. Problems Name Problem SNOMED Code Status Onset Date Resolution Date Notes Provider Name and Address Organization Details Recorded Time Dysphonia 74454422 Active 2014 Unspecifie d voice and resonance disorder; Note: Date Diagnosed: 01/11/2015 1:58 PM (R49.9) [mapped from ICD9 code: 784.40] DARNELL ALARCON MD [address] [place] [address],[place] [address], [place], [address] , [facility] [place] 4 23:36:39 Finding of resonance of voice 310382037 Active 2014 Unspecifie d voice and resonance disorder; Note: Date Diagnosed: 01/11/2015 1:58 PM (R49.9) [mapped from ICD9 code: 784.40] Not Available [facility] 4 02:56:28 Difficult y speaking Active 2014 Hoarseness ; Note: Date Diagnosed: 06/30/2014 5:37 PM (784.49) Voice disturbanc e, unspecifie d; Note: Date Diagnosed: 06/09/2014 2:02 PM (784.40) ; Start Date : 06/09/2014 DARNELL ALARCON MD [address] [place] [address],[place] [address], [place], [address] , [place] - [facility] 4 23:36:33 Hypogloss al nerve palsy 754406025 Active 2023 DARNELL ALARCON MD [address] [place] [address],[place] [address], [place], [address] , [place] - [facility] 4 14:40:28 Candidias is of mouth 08886845 Active 2023 DARNELL ALARCON MD [address] [place] [address],[place] [address], [place], [address] , [place] - [facility] 4 23:36:21 Problem Notes None recorded. Procedures Surgical History Date Name Laterality Status Provider Name and Address Organization Details Recorded Time 03/15/20 24 Telehealth completed DARNELL ALARCON MD [address] [place] [address],[place] [address], [place], [address], [place] - [facility] 03/14/2024 23:35:34 02/10/20 24 FOL_DP completed DARNELL ALARCON MD [address] [place] [address],[place] [address], [place], [address], [place] - [facility] 02/10/2024 09:33:36 operation on carotid artery completed Chinyere Chapman [place] - [facility] 02/10/2024 14:34:59 Hysterectomy completed Chinyere Chapman [place] - [facility] 02/10/2024 14:35:16 Imaging Results Imaging Date Name Status LastModified by Organiz ation Details LastModified Time 02/26/2024 MRI, brain + brain stem, w/wo contrast completed [email or web address] [facility] ([facility]) [address], [place], [address], 03/03/2024 16:51:42 Procedure Notes None recorded. Medical Equipment None Reported. Allergies Allergen ID Allergen Name Allergen Category Reaction Reaction Severity Criticality Documentation Date Start Date Code Code System Note Provider Name and Address Organization Details Recorded Time 15653 bupropion hydrochlo ride medicatio n hives Not available Not available 08/26/2023 56829 4 RxNorm React ion: skin rashe s, hives ;; Not Available [facility] 4 01:04:10 65201 Substance with sulfonami de structure and antibacte rial mechanism of action (substanc e) medicatio n hives Not available Not available 08/26/2023 96294 8003 SNOMED React ion: hives ;; Not Available [facility] 4 01:04:12 Medications Name Sig Start Date Stop Date Status Note LastModified by Organization Details LastModified Time albuterol sulfate 0.63 mg/3 mL solution for nebulizat ion 1 VIAL (3 ML) INHALED 4 TIMES A DAY NEEDED FOR SHORTNES S OF BREATH OR WHEEZING active Not Available Not Available No t Available nystatin 100,000 unit/mL oral suspensio n TAKE 5 ML 4 TIMES A DAY BY ORAL ROUTE FOR 14 DAYS, FOR THRUSH. active Not Available Not Available No t Available diltiazem CD 180 mg capsule,e xtended release 24 hr TAKE 1 CAPSULE BY MOUTH EVERY DAY active Not Available Not Available No t Available hydrocodo ne 5 mg-acetam inophen 325 mg tablet 02/09 completed Medicati on ID: [id number] Du ration Value: 14 Brand Name: hydrocod one-acet aminophe n Send Method: E-Prescr ibed Sub s Allowed: subs TRES Hernandez al Instruct ion: TAKE 1 TABLET BY MOUTH 3 TIMES A DAY NEEDED Xavier Mahmood Name: hydrocod one-acet aminophe n Not Available Not Available Not Available meloxicam 15 mg tablet TAKE 1 TABLET BY MOUTH EVERY DAY 02/09 completed Not Available Not Available Not Available aspirin 81 mg tablet,de layed release TAKE 1 TABLET BY MOUTH EVERY DAY active Not Available Not Available No t Available tramadol 50 mg tablet 02/09 completed Medicati on ID: [id number] Du ration Value: 14 Brand Name: tramadol Send Method: E-Prescr ibed Sub s Allowed: subs TRES Hernandez al Instruct ion: TAKE 1 TABLET BY MOUTH AT BEDTIME Medicati onGeneri cName: tramadol Not Available Not Available Not Available triamcino lone acetonide 0.1 % topical cream APPLY TO AFFECTED AREA TOPICALL Y 2 TIMES A DAY FOR RASH 02/09 completed Not Available Not Available Not Available oxycodone -acetamin ophen 5 mg-325 mg tablet TAKE 1 TABLET BY MOUTH EVERY 8 HOURS NEEDED FOR PAIN 02/09 completed Not Available Not Available Not Available ropinirol e 0.25 mg tablet TAKE 2 TABLETS BY MOUTH EVERY DAY AT BEDTIME ADMINIST ER 1-3 HOURS BEFORE BEDTIME active Not Available Not Available No t Available cyanocoba marianela (vit B-12) 1,000 mcg/mL injection solution INJECT 0.1ML INTRAMUS CULARLY WEEKLY 02/09 completed Not Available Not Available Not Available prednison e 50 mg tablet TAKE ONE TABLET ORALLY DAILY FOR RASH FOR 5 DAYS 02/09 completed Not Available Not Available Not Available Synthroid 88 mcg tablet TAKE 1 TABLET BY MOUTH DAILY active Not Available Not Available No t Available Synthroid 75 mcg tablet 02/09 completed Medicati on ID: [id number] Du ration Value: 30 Brand Name: Synthroi d Send Method: E-Prescr ibed Sub s Allowed: subs TRES Hernandez al Instruct ion: TAKE 1 TABLET BY MOUTH EVERY DAY Medi cationGe nericNam e: Synthroi d Not Available Not Available Not Available hydroxyzi ne HCl 25 mg tablet TAKE 1 TABLET BY MOUTH 3 TIMES A DAY NEEDED FOR ITCHING 02/09 completed Not Available Not Available Not Available morphine 15 mg immediate release tablet 02/09 completed Medicati on ID: [id number] Du ration Value: 7 Brand Name: morphine Send Method: E-Prescr ibed Sub s Allowed: subs OK Speci al Instruct ion: TAKE 1 TABLET BY MOUTH 3 TIMES A DAY NEEDED M edicatio nGeneric Name: morphine Not Available Not Available Not Available diazepam 5 mg tablet 02/09 completed Medicati on ID: [id number] Du ration Value: 23 Brand Name: diazepam Send Method: E-Prescr ibed Sub s Allowed: subs OK Speci al Instruct ion: TAKE 1 TABLET BY MOUTH TWICE A DAY Medi cationGe nericNam e: diazepam Not Available Not Available Not Available Vitamin B-12 1,000 mcg tablet 02/09 completed Medicati on ID: [id number] Du ration Value: 30 Brand Name: Vitamin B-12 Sen d Method: E-Prescr ibed Sub s Allowed: subs OK Speci al Instruct ion: TAKE 1 TABLET BY MOUTH EVERY DAY Medi cationGe nericNam e: Vitamin B-12 Not Available Not Available Not Available Ventolin HFA 90 mcg/actua tion aerosol inhaler INHALE 2 PUFFS EVERY 6 HOURS NEEDED FOR WHEEZING OR FOR SHORTNES S OF BREATH active Not Available Not Available No t Available rosuvasta tin 10 mg tablet TAKE 1 TABLET BY MOUTH DAILY 02/09 completed Not Available Not Available Not Available tizanidin e 2 mg capsule TAKE 1 CAPSULE BY MOUTH THREE TIMES A DAY NEEDED 02/09 completed Not Available Not Available Not Available Breo Ellipta 100 mcg-25 mcg/dose powder for inhalatio n 02/09 completed Medicati on ID: [id number] Du ration Value: 30 Brand Name: Breo Ellipta Send Method: E-Prescr ibed Sub s Allowed: subs OK Speci al Instruct ion: INHALE 1 PUFF EVERY DAY Medi cationGe nericNam e: Breo Ellipta Not Available Not Available Not Available Anoro Ellipta 62.5 mcg-25 mcg/actua tion powder for inhalatio n 02/09 completed Medicati on ID: [id number] Du ration Value: 30 Brand Name: Nika Barrett Send Method: E-Prescr ibed Sub s Allowed: subs OK Speci al Instruct ion: INHALE 1 PUFF EVERY DAY Medi cationGe nericNam e: Anoro Ellipta Not Available Not Available Not Available Repatha SureClick 140 mg/mL subcutane ous pen injector INJECT 1 PEN SUBCUTAN EOUSLY EVERY 2 WEEKS active Not Available Not Available No t Available Trelegy Ellipta 200 mcg-62.5 mcg-25 mcg powder for inhalatio n INHALE 1 PUFF DAILY active Not Available Not Available No t Available Vitals Date Recorded Body height Body mass index (BMI) Body weight Provider Name and Address Organization Details Last Updated DateTime 02/10/2024 151.13 cm 29.8 kg/m2 35436.86 g Chinyere Chapman [place] - [facility] 02/10/2024 14:34:36 Social History None recorded. Functional Status None recorded. Mental Status None recorded. Family History Nothing Reported. Medical History Condition Response Arthritis Y Cancer Y Anxiety Y Migraines Y Thyroid Problems Y Anemia Y Asthma Y Gynecological HistoryNo gynecological history recorded. Obstetrics History GPAL:G 0 P 0 0 0 0 Past Encounters Encounter ID Performer Location Encounter Start Date Encounter Closed Date Diagnosis/Indication Diagnosis SNOMED-CT Code Diagnosis ICD10 Code Diagnosis Note [id number] DARNELL ALARCON MD [facility] [address] [address] 02/10/2024 13:42:52 02/10/2024 14:50:08 Hypoglossal nerve palsy 149460167 G52.3 right hypoglossa l weakness with atrophy Candidiasis of mouth 797 78016 B37.0 [id number] DARNELL ALARCON MD [facility] [address] [address] 03/15/2024 15:30:18 03/15/2024 16:18:03 Candidiasis of mouth 66829986 B37.0 Dysphonia 17063234 R49.9 Health Concerns Section Related Observation LastModified by Organization Detai ls LastModified Time None Recorded Concern Status LastModified by Organization Details LastModified Time None Recorded Advance Directives Directive None Recorded Payers Encounter Date Sequence Insurance Name Policy Number Policy Che Covered Member ID Che Member ID Guarantor Name 02/10/2024 1 [place] [facility] Leah Dixonlos [id number] Leah Dixonlos 03/15/2024 1 [place] [facility] Leah Rm Lolos [id number] Leha Dixonlos Notes Date Note Type Note Provider Name and Address Organization Details Recorded Time 02/10/2024 text/html speech, voice ch juan 08/2023 R CEA Tata at [facility] woke her voice was disrupted. had some bloody mucus for a few daystongue dev to right after surgerystill feels like there is slurring of wordsno brain imagingtaste disturbance 11/15/[address] Jacobs, benign DARNELL ALARCON MD [address] [place] [address], [address], [facility] 02/10/2024 14:50:04 03/15/2024 text/html speech, voice changefeels the nystatin has resulted in a slight improvementhas an additional concern of inability of blowing nose.currently is caring for her mother with dementia at her homehas not been using her inhaler much lately 08/2023 R CEA Tata at [facility] woke her voice was disrupted. had some bloody mucus for a few daystongue dev to right after surgerystill feels like there is slurring of wordsno brain imagingtaste disturbance PV 02/10/24 [facility] - thrush rx nystatin. right hypoglossal weakness with atrophy, MRI brain requested 02/26/2024 [facility] of T2 prolongation and white matter. No acute or subacute infarct, mass, hemorrhage or other intracranial abnormality. The mild T2 hyperintense foci in the white matter most likely reflect chronic small vessel disease. 11/15/[address] Jacobs, benign DARNELL ALARCON MD [address] [place] [address],[address], [address], [facility] 03/15/2024 15:42:58 OBGyn Episode No OBEpisode recorded.
--- OUTSIDE RECORDS SUMMARY | 2024-06-17 13:09 | XMS_ITS | Clinical Summary ---
Author Organization [facility] ity Address [address] [place] [address] Care Team Providers Care Bending Machine Set Up Operator Name Role Phone Unavailable Primary Care Provider Unavailabl e Social History Tobacco Use Types Packs/Day Years Used Date Smoking Tobacco: Never Assessed Comments Unknown Sex and Gender Information Value Date Recorded Sex Assigned at Not on file Legal Sex Female 10:42 PM EST Gender Identity Not on file Sexual Orientation Not on file Last Filed Vital Signs Vital Sign Reading Time Taken Comments Blood Pressure - - Pulse - - Temperature - - Respiratory Rate - - Oxygen Saturation - - Inhaled Oxygen Concentration - - Weight 80.3 kg (177 lb) 05/20/2022 8:13 AM EST Height 152.4 cm (5') 05/20/2022 8:13 AM EST Body Mass Index 34.57 05/20/2022 8:13 AM EST Plan of Treatment Health Maintenance Due Date Last Done Comments DTaP,Tdap,and Td Vaccines (1 - Tdap) 01/04/1975 Pneumococcal Vaccine: 50+ Years (1 of 1 - PCV) 01/04/2006 Zoster Vaccines (1 of 2) 01/04/2006 Colorectal Cancer Screening: Colonoscopy 03/17/2022 Depression Screening 03/17/2022 Falls Risk Assessment 03/17/2022 Hepatitis C Screening 03/17/2022 Osteoporosis Screening (Bone Density Screening) 03/17/2022 Social Influencers of Health Screening 03/17/2022 COVID-19 Vaccine (1 - 2023-2 5 season) 2023 Influenza Vaccine (#1) 2023 Breast Cancer Screening 03/23/2024 03/23/20 22, 06/26/2020 RSV Immunization Patients 60 + Years Old (1 - 1-dose 75+ series) 01/04/2031 HIB Vaccines Aged Out No longer eligi ble based on patient's age to complete this topic HPV Vaccines Aged Out No longer eligi ble based on patient's age to complete this topic Hepatitis A Vaccines Aged Out No long er eligible based on patient's age to complete this topic Hepatitis B Vaccines Aged Out No long er eligible based on patient's age to complete this topic IPV Vaccines Aged Out No longer eligi ble based on patient's age to complete this topic MMR Vaccines Aged Out No longer eligi ble based on patient's age to complete this topic Meningococcal ACWY Vaccine Aged Out N o longer eligible based on patient's age to complete this topic Meningococcal B Vacine Aged Out No lo nger eligible based on patient's age to complete this topic RSV Immunization Patients Under 20 months Aged Out No longer eligible b ased on patient's age to complete this topic Varicella Vaccines Aged Out No longer eligible based on patient's age to complete this topic Procedures Procedure Name Priority Date/Time Associated Diagnosis Comments [facility] SCREENING DIGITAL Routine 03/23/2022 2:48 PM EST Encounter for screening mammogram for malignant neoplasm of breast from Last 3 Months or Most Recently Relevant to Health Maintenance Results * [facility] SCREENING DIGITAL (03/23/2022 2:48 PM EST) Anatomical Region Laterality Modality Mammography 03/21/2022 8:48 AM EST Narrative 03/23/2022 2:48 PM EST [facility] Diagnostic Imaging Department [address] [place] [address] [id number] Patient: ??LEAH FINCH ?/Age/Sex: 1955 - 67 - F Unit#: ??[id number] ? Location/Status: ??SPDIMAM/REG CLI ? Mnemonic/Ordering Site: ??DIGSC/SPMAM Ordering Physician: ??CHINTAN HADLEY MD [facility] Screening Digital - 03/21/22 - 938 EXAM: [facility] Screening Digital EXAM DATE AND TIME: 03/21/2022 9:39 AM HISTORY: ??Screening. Right breast biopsy in 1982, pathology benign. COMPARISON: ??06/26/20, 04/03/17, 03/21/14 TECHNIQUE: CC and MLO views of both breasts were obtained using full field digital mammography. Bilateral digital breast tomosynthesis was performed in the MLO projection. Computer aided detection with [employer] 7.2-H and [employer] 3D 3.1 was employed. TISSUE DENSITY: b. There are scattered areas of fibroglandular density. FINDINGS: A large area of increased attenuation is seen within the axillary tail of the left breast, extending into the axilla. No lymphadenopathy is identified. Tomosynthesis views of the left breast in the exaggerated craniocaudal projection are recommended, to be followed by targeted ultrasound. A 2 mm round asymmetry is seen in the lateral right breast, CC view only. Further assessment with spot compression-tomosynthesis views are recommended. There are scattered benign calcifications bilaterally which show no significant change. No architectural distortion is seen. The skin and vascularity are unremarkable. IMPRESSION: 1. Large asymmetry in the axillary tail of the left breast, for which additional views and targeted ultrasound are recommended. 2. Small right breast asymmetry, for which additional views are recommended. The patient will be called back. BI-RADS: ??Category 0: Incomplete - Need Additional Imaging Evaluation RECOMMENDATION(S): 1: Special mammographic view(s) needed BILATERAL 29868, [id number] 3340F, 7025F Dictating Physician: ??MARLEN MANRIQUEZ MD Electronically Signed by: ??MARLEN MANRIQUEZ MD Dic Date/Time: ??03/23/22 1446 Sign date/Time: ??03/23/22 1448 Procedure Note Marlen Manriquez MD - 05/16/2023 [facility] Diagnostic Imaging Department [address] [place] [address] [id number] Patient: LEAH FINCH Sujey CraigB./Age/Sex: 1955 - 67 - F Unit#: [id number] [facility]Ordering Site: [facility] Ordering Physician: CHINTAN HADLEY MD [facility] Screening Digital - 03/21/22938 EXAM: [facility] Screening Digital EXAM DATE AND TIME: 03/21/2022 9:39 AM HISTORY: Screening. Right breast biopsy in 1982, pathology benign. COMPARISON: 06/26/20, 04/03/17, 03/21/14 TECHNIQUE: CC and MLO views of both breasts were obtained using fullfield digital mammography. Bilateral digital breast tomosynthesis was performedin the MLO projection. Computer aided detection with [employer] 7.2-H and[employer] 3D 3.1 was employed. TISSUE DENSITY: b. There are scattered areas of fibroglandular density. FINDINGS: A large area of increased attenuation is seen within the axillary tail ofthe left breast, extending into the axilla. No lymphadenopathy isidentified. Tomosynthesis views of the left breast in the exaggerated craniocaudal projection are recommended, to be followed by targeted ultrasound. A 2 mm round asymmetry is seen in the lateral right breast, CC viewonly. Further assessment with spot compression-tomosynthesis views arerecommended. There are scattered benign calcifications bilaterally which show nosignificant change. No architectural distortion is seen. The skin and vascularity are unremarkable. IMPRESSION: 1. Large asymmetry in the axillary tail of the left breast, for which additional views and targeted ultrasound are recommended. 2. Small right breast asymmetry, for which additional views arerecommended. The patient will be called back. BI-RADS: Category 0: Incomplete - Need Additional Imaging Evaluation RECOMMENDATION(S): 1: Special mammographic view(s) needed BILATERAL 30652, 06519 3340F, 7025F Dictating Physician: MARLEN MANRIQUEZ MD Electronically Signed by: MARLEN MANRIQUEZ MD Dic Date/Time: 03/23/22 1446 Sign date/Time: 03/23/22 1448 us Chintan Hadley MD IMG BI PROCEDURES Final Result from Last 3 Months or Most Recently Relevant to Health Maintenance
== END 2024-06-17 10:52 | disposition home or self-care (01) ==
LOC: HO.US 10:51
PROVIDERS: PCP Internal Medicine; Visit Provider Surgery Vascular Surgery
DX: I65.23 Occlusion and stenosis of bilateral carotid arteries (principal)
CPT/HCPCS: 93880

== ENCOUNTER → 2024-06-17 10:54 | Outpatient (BNV) | payer MEDICARE, SELFPAY | PROVIDERS: PCP Internal Medicine; Visit Provider Radiology Diagnostic Radiology | DX: I65.23 Occlusion and stenosis of bilateral carotid arteries (principal) | CPT/HCPCS: 93880 ==

== ENCOUNTER 2024-07-13 10:45 | Outpatient (AMB) | payer MEDICARE, SELFPAY ==
[2024-07-13 11:00] VITALS: BP 108/66; BMI 30.2
--- NOTE | 2024-07-13 11:00 | MHC.OFFVIS ---
Vital Signs 07/13/24 11:00 Height 4 ft 11.5 in Weight 152 lb BMI 30.2 BP 108/66 Blood Pressure Location Lt brachial Position Sitting Intake Visit Reasons: 6m follow up s/p Carotid US 06/17/24 Intake Note: 6 mo follow up carotid US 06/17/24w/ hx of R CEA 08/25/23. Pt states unable to blow her nose since surgery, was seen by ENT. Pt states she has nose bleeds regularly. Accompanied by: Self / Same As Patient Allergies atorvastatin [Lipitor] Allergy (Severe, Verified 07/13/24 11:04) nausea bupropion [Wellbutrin] Allergy (Severe, Verified 07/13/24 11:04) Rash levofloxacin [Levaquin] Allergy (Severe, Verified 07/13/24 11:04) Rash Sulfa (Sulfonamide Antibiotics) Allergy (Severe, Verified 07/13/24 11:04) burning sensation red burn manuel amitriptyline Adverse Reaction (Severe, Verified 07/13/24 11:04) headaches, migraines metoprolol Adverse Reaction (Intermediate, Verified 07/13/24 11:04) Nausea topiramate [Topamax] Adverse Reaction (Unknown, Verified 07/13/24 11:04) sleepiness HPI HPI 6m follow up s/p Carotid US 06/17/24: Details: The patient is a 69-year-old female presenting with follow-up for carotid artery ultrasound. She underwent right carotid surgery in 2023, approximately a year ago. She has had no interval changes. She now presents for routine carotid surveillance follow-up. She remains on a daily regimen of baby aspirin and is experiencing frequent epistaxic episodes, with occurrences recorded as every other day, lasting about 10 minutes. These episodes have become less frequent. Her oral candidiasis, diagnosed previously and being treated with antifungal mouthwash, has persisted despite completing three bottles. Patient had seen ENT regarding this. No other significant findings. Will follow up with primary care regarding this. Patient now presents for follow-up with surveillance ultrasound. [facility] Medical History Ambulates with cane History of postoperative nausea Vitamin D deficiency Cough Knee pain, right DVT (deep venous thrombosis) (~2017) Leg pain Vitamin B12 deficiency Carotid stenosis, bilateral Diastolic CHF Anxiety Tension headache Migraine headache with aura HTN (hypertension) Hyperlipidemia Hypothyroidism Lung nodule COPD (chronic obstructive pulmonary disease) Surgical History H/O carotid endarterectomy History of decompression of ulnar nerve Hx of vaginal hysterectomy (~1994) Hx of laparoscopy History of esophagogastroduodenoscopy (EGD) H/O colonoscopy History of laryngoscopy Family History Father HTN (hypertension) Mother COPD (chronic obstructive pulmonary disease) HTN (hypertension) Social History Household Members: Family Household Members Other:: 88 yr old mom Housing: House Are you a primary neonatal critical care nurse to a significant other at home: Yes (88 yr old mom, looking for help post-op, brother can help with some care) Do you presently have visiting nurse or other home services: No Patient Tobacco Use Status: Current everyday Tobacco user Tobacco use type: Cigarette Cigarettes Per Day: 5 Years Smoked: 46 e-Cigarette/Vaping Use: Never Used service: No Current occupational status: retired Cognitive needs: No Hearing needs: No Vision needs: Yes Review of Systems Const All systems reviewed & are unremarkable except as noted in HPI and below Reports no additional complaints ENT Reports Normal hearing present Card Denies chest pain, Denies chest pain at rest, Denies chest pain with activity and Denies pedal edema Resp Denies cough GI Denies abdominal pain Musc Denies abnormal gait, Denies muscle cramps and Denies radiating pain into limb Skin/Breast Denies skin ulcer and Denies wounds Neuro Reports Normal hearing present and Denies abnormal gait Psych Reports no additional complaints Physical Exam Vital Signs: Last Vital Signs BP 108/66 07/13/24 11:00 BMI result Body Mass Index 30.2 Const General: cooperative, healthy appearing and comfortable Orientation/consciousness: oriented to person, oriented to place and oriented to time HEENT Head: Yes normal to inspection Neck Neck: Yes normal visual inspection Carotids: no bruits Chest Chest palpation & inspection: normal inspection of the chest Resp Effort & Inspection: normal respiratory effort and able to speak in complete sentences Auscultation: clear to auscultation bilaterally, no crackles, no rales, no rhonchi and no wheezes Cardio Rate: regular rate Rhythm: regular rhythm Heart sounds: S1 normal heart sound present and S2 normal heart sound present Bruits: no carotid bruits Peripheral pulses: Peripheral pulses 2+ throughout GI Inspection: Yes normal to inspection Skin Wounds: no wounds Hair: normal Neuro General: oriented to person, oriented to place and oriented to time Cranial nerves: Yes CN's II-XII intact bilaterally and Yes Normal hearing present Cognition (Neuro): normal cognition Motor exam (neuro): 5/5 motor strength present throughout Extrem Other: venous exam: No significant superficial varicosities or spider telangiectasias, minimal edema General: No clubbing, No cyanosis and No edema Psych Appearance: grossly normal Mental Status: mental status grossly normal Speech and movement: Normal speech and movement present Results Reviewed Results Reviewed: Carotid testing dated 06/17 2024 demonstrates right-sided 0-49% stenosis left side 50-79% stenosis. Written report and images were reviewed. Assessment & Plan Assessment & Plan (1) Carotid stenosis, right: Code(s): I65.21 - Occlusion and stenosis of right carotid artery Category: Medical Plan: In short patient has asymptomatic carotid disease. We have reviewed signs and symptoms of a stroke. We also discussed risk factor modification inclusive a healthy diet low in cholesterol. The patient will follow up with us with surveillance ultrasound of the carotids 1 year. Should there be any changes or signs or symptoms of a stroke we will be happy to see them back sooner. Thank you for allowing us to participate in this patient's care. If there are any questions or concerns please do not hesitate to contact us. Orders: Orders US carotid duplex BI 1 Year I65.23 - Occlusion and stenosis of bilateral carotid arteries Patient Instructions: - Continue current regimen, including baby aspirin. - Use a humidifier to help alleviate nosebleeds during dry weather. - Consult your primary care physician if nosebleeds persist or worsen. - Follow up with your primary care provider for alternative oral thrush treatments. - Attend scheduled annual carotid ultrasound appointments for ongoing monitoring. - Report any significant changes or new symptoms to the healthcare provider. Coding Level of Care Code Est Pt Level 4 (82576) Diagnoses Carotid stenosis, right I65.21
--- OUTSIDE RECORDS SUMMARY | 2024-07-13 12:53 | XMS_ITS | Clinical Summary ---
Author Organization [facility] ity Address [address] [place] [address] Care Team Providers Care Tmd Teacher Assistant Name Role Phone Unavailable Primary Care Provider [...] Procedure Name Priority Date/Time Associated Diagnosis Comments [facility] SCREENING DIGITAL Routine 03/23/2022 2:48 PM EST Encounter for screening mammogram for malignant neoplasm of breast from Last 3 Months or Most Recently Relevant to Health Maintenance Results * [facility] SCREENING DIGITAL (03/23/2022 2:48 PM EST) Anatomical Region Laterality Modality Mammography 03/21/2022 8:48 AM EST Narrative 03/23/2022 2:48 PM EST [facility] Diagnostic Imaging Department [address] [place] [address] [id number] Patient: ??LEAH FINCH ?/Age/Sex: 1955 - 67 - F Unit#: ??[id number] ? Location/Status: ??SPDIMAM/REG CLI ? Mnemonic/Ordering Site: [...] the MLO projection. Computer aided detection with [employer] 7.2-H and [employer] 3D 3.1 was employed. TISSUE DENSITY: b. [...] RECOMMENDATION(S): 1: Special mammographic view(s) needed BILATERAL 83468, 47914 3340F, 7025F Dictating Physician: ??MARLEN MANRIQUEZ MD Electronically Signed by: ??MARLEN MANRIQUEZ MD Dic Date/Time: ??03/23/22 1446 Sign date/Time: ??03/23/22 1448 Procedure Note Marlen Manriquez MD - 05/16/2023 [facility] Diagnostic Imaging Department [address] [place] [address] [id number] Patient: LEAH FINCH Sujey CraigB./Age/Sex: 1955 - 67 - F Unit#: [id number] [facility] Ordering Physician: CHINTAN HADLEY MD [facility] Screening Digital - 03/21/22938 EXAM: [facility] Screening Digital EXAM DATE AND TIME: 03/21/2022 9:39 AM HISTORY: Screening. Right breast biopsy in 1982, pathology benign. COMPARISON: 06/26/20, 04/03/17, 03/21/14 TECHNIQUE: CC and MLO views of both breasts were obtained using fullfield digital mammography. Bilateral digital breast tomosynthesis was performedin the MLO projection. Computer aided detection with [employer] 7[employer]H and[employer] 3D 3.1 was employed. TISSUE DENSITY: b. [...] RECOMMENDATION(S): 1: Special mammographic view(s) needed BILATERAL 68735, 45376 3340F, 7025F Dictating Physician: MARLEN MANRIQUEZ MD Electronically Signed by: MARLEN MANRIQUEZ MD Dic Date/Time: 03/23/22 1446 Sign date/Time: 03/23/22 1448 us Chintan Hadley MD IMG BI PROCEDURES Final Result from Last 3 Months or Most Recently Relevant to Health Maintenance
--- OUTSIDE RECORDS SUMMARY | 2024-07-13 12:53 | XMS_ITS | Data Portability ---
Author Organization [place] - [facility], Allergy Address [address] [address] Care Team Providers Care Dairy Store Manager Name Role Phone CHINTAN HERMOSILLO Referring Provider KRISTINA SANTIAGO Referring Provider Assessment Encounter Date [...] 14:49:14 03/15/2024 03/15/2024 Could consider refer to ASSOCIATE LOAN OFFICER. Patient declined at this time as she [...] nerve palsy after R CEA 2023 izzy [facility] ([facility]), [address], [place], [address], 4 09:39:01 Medication Orders nystatin 100,000 unit/mL oral suspensio n 2023 024 [facility] #[id number], [address] [place], [address], 4 14:47:03 Patient TargetsNo targets recorded. Patient InstructionsNo instructions recorded. Reason for Referral None Reported. Results Created Date Observation Date Name Description Value Unit Range Abnormal Flag Note LastModifiedBy Organization Detail LastModifiedTime 03/01/20 24 02/26/2024 MRI, brain + brain stem, w/wo contr ast [facility] Access ion Number : [id number] Patien t Name: Leah Finch Record Number : [id number] Date of : 1954 Date of Exam: 2023 Referr ing Physic reed: Darnell Alarcon [facility] [address] [place] [address] Exam: MR Brain (C-/C+ ) CPT 00925 Room Descri ption: [facility] 3.0T MR Brain (C-/C+ ) CPT 97058 INDICA TION / CLIN[facility] ON: [...] ly Signed By: Gloria Dinh MD [email or web address] [facility] ([facility]) [address], [place], [address], 03/03/2024 16:51:42 Result Notes None recorded. Problems Name Problem SNOMED Code Status Onset Date Resolution Date Notes Provider Name and Address Organization Details Recorded Time Dysphonia 12959201 Active 2014 Unspecifie d voice and resonance disorder; Note: Date Diagnosed: 01/11/2015 1:58 PM (R49.9) [mapped from ICD9 code: 784.40] DARNELL ALARCON MD [address] [place] [address],[place] [address], [place], [address] , [facility] [place] [facility] 4 23:36:39 Finding of resonance of voice 219122656 Active 2014 Unspecifie d voice and resonance disorder; Note: Date Diagnosed: 01/11/2015 1:58 PM (R49.9) [mapped from ICD9 code: 784.40] Not Available [facility] 4 02:56:28 Difficult y speaking Active 2014 Hoarseness ; Note: Date Diagnosed: 06/30/2014 5:37 PM (784.49) Voice disturbanc e, unspecifie d; Note: Date Diagnosed: 06/09/2014 2:02 PM (784.40) ; Start Date : 06/09/2014 DARNELL ALARCON MD [address] [place] [address],[place] [address], [place], [address] , [place] - [facility] 4 23:36:33 Hypogloss al nerve palsy 016554942 Active 2023 DARNELL ALARCON MD [address] [place] [address],[place] [address], [place], [address] , [place] - [facility] 4 14:40:28 Candidias is of mouth 24759546 Active 2023 DARNELL ALARCON MD [address] [place] [address],[place] [address], [place], [address] , [place] - [facility] 4 23:36:21 Problem Notes None recorded. Procedures Surgical History Date Name Laterality Status Provider Name and Address Organization Details Recorded Time 03/15/20 24 Telehealth completed DARNELL ALARCON MD [address] [place] [address],[place] [address], [place], [address], [place] - [facility] 03/14/2024 23:35:34 02/10/20 24 FOL_DP completed DARNELL ALARCON MD [address] [place] [address],[place] [address], [place], [address], [place] - [facility] 02/10/2024 09:33:36 operation on carotid artery completed Chinyere Chapman [place] - [facility] 02/10/2024 14:34:59 Hysterectomy completed Chinyere Chapman [place] - [facility] 02/10/2024 14:35:16 Imaging Results Imaging Date Name Status LastModified by Organiz ation Details LastModified Time 02/26/2024 MRI, brain + brain stem, w/wo contrast completed [email or web address] [facility] ([facility]) [address], [place], [address], 03/03/2024 16:51:42 Procedure Notes None recorded. Medical Equipment None Reported. Allergies Allergen ID Allergen Name Allergen Category Reaction Reaction Severity Criticality Documentation Date Start Date Code Code System Note Provider Name and Address Organization Details Recorded Time 47617 bupropion hydrochlo ride medicatio n hives Not available Not available 08/26/2023 26850 4 RxNorm React ion: skin rashe s, hives ;; Not Available [facility] 4 01:04:10 18839 Substance with sulfonami de structure and antibacte rial mechanism of action (substanc e) medicatio n hives Not available Not available 08/26/2023 15602 8003 SNOMED React ion: hives ;; Not Available [facility] 4 01:04:12 Medications Name Sig Start Date [...] mg tablet 02/09 completed Medicati on ID: 54549 Du ration Value: 14 Brand Name: hydrocod [...] mg tablet 02/09 completed Medicati on ID: 31865 Du ration Value: 14 Brand Name: tramadol [...] mcg tablet 02/09 completed Medicati on ID: 36548 Du ration Value: 30 Brand Name: Synthroi [...] release tablet 02/09 completed Medicati on ID: [id number] Du ration Value: 7 Brand Name: morphine Send Method: E-Prescr ibed Sub s Allowed: subs OK Speci al Instruct ion: TAKE 1 TABLET BY MOUTH 3 TIMES A DAY NEEDED M edicatio nGeneric Name: morphine Not Available Not Available Not Available diazepam 5 mg tablet 02/09 completed Medicati on ID: 10266 Du ration Value: 23 Brand Name: diazepam Send Method: E-Prescr ibed Sub s Allowed: subs OK Speci al Instruct ion: TAKE 1 TABLET BY MOUTH TWICE A DAY Medi cationGe nericNam e: diazepam Not Available Not Available Not Available Vitamin B-12 1,000 mcg tablet 02/09 completed Medicati on ID: 63202 Du ration Value: 30 Brand Name: Vitamin [...] inhalatio n 02/09 completed Medicati on ID: 33203 Du ration Value: 30 Brand Name: Breo Ellipta Send Method: E-Prescr ibed Sub s Allowed: subs OK Speci al Instruct ion: INHALE 1 PUFF EVERY DAY Medi cationGe nericNam e: Breo Ellipta Not Available Not Available Not Available Anoro Ellipta 62.5 mcg-25 mcg/actua tion powder for inhalatio n 02/09 completed Medicati on ID: [id number] Du ration Value: 30 Brand Name: Nika [...] Updated DateTime 02/10/2024 151.13 cm 29.8 kg/m2 59776.86 g Chinyere Chapman [place] - [facility] 02/10/2024 14:34:36 Social History None recorded. Functional Status None recorded. Mental Status None recorded. Family History Nothing Reported. Medical History Condition Response Anxiety Y Migraines Y Thyroid Problems Y Anemia Y Arthritis Y Cancer Y Asthma Y Gynecological HistoryNo gynecological history recorded. Obstetrics History GPAL:G 0 P 0 0 0 0 Past Encounters Encounter ID Performer Location Encounter Start Date Encounter Closed Date Diagnosis/Indication Diagnosis SNOMED-CT Code Diagnosis ICD10 Code Diagnosis Note [id number] DARNELL ALARCON MD [facility] [address] [address] 02/10/2024 13:42:52 02/10/2024 14:50:08 Hypoglossal nerve palsy 685695211 G52.3 right hypoglossa l weakness with atrophy Candidiasis of mouth 797 96553 B37.0 [id number] DARNELL ALARCON MD [facility] [address] [address] 03/15/2024 15:30:18 03/15/2024 16:18:03 Candidiasis of mouth 41415206 B37.0 Dysphonia 74424962 R49.9 Health Concerns Section Related Observation LastModified by Organization Detai ls LastModified Time None Recorded Concern Status LastModified by Organization Details LastModified Time None Recorded Advance Directives Directive None Recorded Payers Encounter Date Sequence Insurance Name Policy Number Policy Che Covered Member ID Che Member ID Guarantor Name 02/10/2024 1 MEDICARE B-[place]: [facility] Leah Dixonlos [id number] 1 [id number] Leah Dixonlos 03/15/2024 1 [place] [facility] Leah Rm Lolos [id number] Leah Dixonlos Notes Date Note Type Note Provider Name and Address Organization Details Recorded Time 02/10/2024 text/html speech, voice ch juan 08/2023 R CEA Tata at [facility] woke her voice was disrupted. had some bloody mucus for a few daystongue dev to right after surgerystill feels like there is slurring of wordsno brain imagingtaste disturbance 11/15/[address] Jacobs, benign DARNELL ALARCON MD [address] [place] [address], [address], [facility] 02/10/2024 14:50:04 03/15/2024 text/html speech, voice changefeels the nystatin has resulted in a slight improvementhas an additional concern of inability of blowing nose.currently is caring for her mother with dementia at her homehas not been using her inhaler much lately 08/2023 R CEA Tata at [facility] woke her voice was disrupted. had some bloody mucus for a few daystongue dev to right after surgerystill feels like there is slurring of wordsno brain imagingtaste disturbance PV 02/10/24 [facility] - thrush rx nystatin. right hypoglossal weakness with atrophy, MRI brain requested 02/26/2024 [facility] foci of T2 prolongation and white matter. No acute or subacute infarct, mass, hemorrhage or other intracranial abnormality. The mild T2 hyperintense foci in the white matter most likely reflect chronic small vessel disease. 11/15/[address] Jacobs, benign DARNELL ALARCON MD [address] [place] [address],[address], [address], [facility] 03/15/2024 15:42:58 OBGyn Episode No OBEpisode recorded.
== END 2024-07-13 11:20 | disposition home or self-care (01) ==
LOC: HO.HVS 10:46
PROVIDERS: PCP Internal Medicine; Visit Provider Surgery Vascular Surgery
DX: I65.21 Occlusion and stenosis of right carotid artery (principal)
CPT/HCPCS: 99214

== ENCOUNTER → 2024-07-13 10:45 | Outpatient (BNVA) | payer MEDICARE, SELFPAY | PROVIDERS: PCP Internal Medicine; Visit Provider Surgery Vascular Surgery | DX: I65.21 Occlusion and stenosis of right carotid artery (principal) | CPT/HCPCS: 99212 ==

== ENCOUNTER 2024-09-15 11:09 | Outpatient (AMB) | payer MEDICARE, SELFPAY ==
[2024-09-15 11:11] VITALS: BP 110/72; PULSE 97; RESP 18; TEMP 36.9; O2SAT 95; BMI 31.0
--- NOTE | 2024-09-15 11:11 | A.OFFPC_ITS ---
Vital Signs 09/15/24 11:11 Height 4 ft 11.5 in Weight 156 lb BMI 31.0 BP 110/72 Blood Pressure Location Lt brachial Position Sitting Respiration 18 Pulse 97 Pulse Source Pulse Oximeter Temp 98.4 F Temp Source Oral Pulse Oximetry (%) 95 Oxygen Delivery Method Room Air Intake Visit Reasons: Followup-annual, declined AWV Allergies atorvastatin [Lipitor] Allergy (Severe, Verified 09/15/24 11:18) nausea bupropion [Wellbutrin] Allergy (Severe, Verified 09/15/24 11:18) Rash levofloxacin [Levaquin] Allergy (Severe, Verified 09/15/24 11:18) Rash Sulfa (Sulfonamide Antibiotics) Allergy (Severe, Verified 09/15/24 11:18) burning sensation red burn manuel amitriptyline Adverse Reaction (Severe, Verified 09/15/24 11:18) headaches, migraines metoprolol Adverse Reaction (Intermediate, Verified 09/15/24 11:18) Nausea topiramate [Topamax] Adverse Reaction (Unknown, Verified 09/15/24 11:18) sleepiness Medication List - Last Reconciled 09/15/24 by Josee Hadley MD albuterol sulfate 0.63 mg (3 mL) inhalation QID PRN aspirin 81 mg PO DAILY cyanocobalamin (vitamin B-12) 100 mcg (0.1 mL) IM QWEEK diltiazem HCl CD (Cardizem CD) 180 mg PO DAILY evolocumab (Repatha SureClick) 140 mg subcut Q2W ropinirole 0.5 mg (2 x 0.25 mg) PO BEDTIME rosuvastatin (Crestor) 10 mg PO DAILY Synthroid (levothyroxine) 88 mcg PO DAILY NS Ventolin HFA 90 mcg/actuation (albuterol sulfate) 2 puffs PO Q6H PRN NS Tobacco use date assessed: 09/17/23 Fall risk assessment: No Falls in past year Last assessed Fall Risk: 09/15/24 Dental Screening Dental Screen Date: 09/15/24 Did you have a dental visit in the last 12 months?: Yes Did you have a dental problem in the last 6 months where you did not have access to dental care?: No Was dental information given to patient?: Patient has dentist HPI Followup-annual, declined AWV HPI Details Pt presents for f/u COPD, hypercholest, hypothyroid, stable on meds. Patient developed thrush on Trelegy and stopped using it. She has been using albuterol inhaler almost daily. Patient continues to smoke 2 cigarettes a day. She used to see [facility] for frequent migraine headaches and has been taking Ubrelvy with good relief and needs to continue the medication. Patient will obtain medical records from [facility]. [facility] Medical History (Updated 09/15/24 @ 12:15 by Josee Hadley MD) Ambulates with cane History of postoperative nausea Vitamin D deficiency Cough Knee pain, right Leg pain Vitamin B12 deficiency Carotid stenosis, bilateral Diastolic CHF Anxiety Tension headache Migraine headache with aura HTN (hypertension) Hyperlipidemia Hypothyroidism Lung nodule COPD (chronic obstructive pulmonary disease) Surgical History H/O carotid endarterectomy History of decompression of ulnar nerve Hx of vaginal hysterectomy (~1994) Hx of laparoscopy History of esophagogastroduodenoscopy (EGD) H/O colonoscopy History of laryngoscopy Family History Father HTN (hypertension) Mother COPD (chronic obstructive pulmonary disease) HTN (hypertension) Social History Household Members: Family Household Members Other:: 88 yr old mom Housing: House Are you a primary home health care worker to a significant other at home: Yes (88 yr old mom, looking for help post-op, brother can help with some care) Do you presently have visiting nurse or other home services: No Patient Tobacco Use Status: Current everyday Tobacco user Tobacco use type: Cigarette Cigarettes Per Day: 5 Years Smoked: 46 e-Cigarette/Vaping Use: Never Used service: No Current occupational status: retired Cognitive needs: No Hearing needs: No Vision needs: Yes Questionnaire PHQ-9 Over the last 2 weeks, how often have you been bothered by any of the following problems? 1. Little interest or pleasure in doing things: not at all 2. Feeling down, depressed, or hopeless: not at all 3. Trouble falling or staying asleep, or sleeping too much: not at all 4. Feeling tired or having little energy: not at all 5. Poor appetite or overeating: not at all 6. Feeling bad about yourself - or that you are a failure or have let yourself or your family down: not at all 7. Trouble concentrating on things, such as reading the newspaper or watching television: not at all 8. Moving or speaking so slowly that other people could have noticed. Or the opposite - being so fidgety or restless that you have been moving around a lot more than usual: not at all 9. Thoughts that you would be better off or of hurting yourself in some way: not at all Total score: 0 Depression Screening Interpretation: Negative Depression Screening Done: Yes 71678 - PHQ-9 Billing: Yes Source: Developed by Drs. Maciel Millan, Brittany Tompkins, Ashok Kendrick and colleagues, with an educational rosalia from [employer]. Thrive Questionnaire Date Thrive assessed: 09/15/24 I am a: Patient What is your living situation today?: I have a steady place to live Within the past 12 months, did the food you bought not last and you didn't have the money to get more?: I choose not to answer this question Within the past 12 months, did you worry whether your food would run out before you got money to buy more?: Never true Do you have trouble paying for medicines?: I choose not to answer this question Do you have trouble getting transportation to medical appointments?: No Do you have trouble paying your heating and electricity bill?: No Do you have trouble taking care of your child, family member or friend?: Yes Do you have trouble with day-to-day activities such as bathing, preparing meals, shopping, managing finances, etc.?: I choose not to answer this question Are you currently unemployed and looking for a job?: No Are you interested in more education?: No Please select the resources that you would like help with: None Currently or been in a relationship where the following occur: I choose not to answer THRIVE Score: 0 AUDIT C Alcohol Use Questionnaire (AUDIT-C) 1. How often do you have a drink containing alcohol?: Never 3. How often do you have six or more drinks on one occasion?: Never Total Score: 0 DEJA-7 AMB Questionnaire DEJA-7 Date DEJA - 7 assessed: 09/15/24 Feeling nervous, anxious, or on edge: 1 = Several days Not being able to stop or control worryin = Not at all Worrying too much about different things: 1 = Several days Trouble relaxin = Several days Being so restless that it is hard to sit still: 0 = Not at all Becoming easily annoyed or irritable: 1 = Several days Feeling afraid as if something awful might happen: 0 = Not at all Total DEJA-7 score (0-4 normal; 5-9 mild; 10-14 moderate; 15-21 severe): 4 Source: Developed by Drs. Maciel Millan, Brittany Tompkins, Ashok Kendrick and colleagues, with an educational rosalia from [employer]. DEJA-7 Assessment Billing DEJA-7 Assessment Tool: DEJA-7 Assessment 86173 Review of Systems Const All systems reviewed & are unremarkable except as noted in HPI and below Reports no additional complaints Eyes Reports no additional complaints ENT Reports no additional complaints Card Reports no additional complaints Resp Reports no additional complaints GI Reports no additional complaints Reports no additional complaints Musc Reports no additional complaints Physical exam (Primary Care) Vital Signs: Last Vital Signs Temp 98.4 F 09/15/24 11:11 Pulse 97 09/15/24 11:11 Resp 18 09/15/24 11:11 BP 110/72 09/15/24 11:11 Pulse Ox 95 09/15/24 11:11 Oxygen Delivery Method Room Air 09/15/24 11:11 BMI result Body Mass Index 31.0 Tobacco/Smoking Status: Tobacco use Status Tobacco use date assessed 09/17/23 09/15/24 11:23 Patient Tobacco Use Status Current everyday Tobacco 09/15/24 11:11 Tobacco use type Cigarette 09/15/24 11:11 e-Cigarette/Vaping Use Never Used 09/15/24 11:11 PHQ-9: PHQ-9 Score PHQ-9: Total score 0 09/15/24 11:23 Depression Screening Interpretation: Negative Thrive Assessment: Date of Thrive Assessment Date Thrive assessed 09/15/24 09/15/24 11:23 Currently or been in a relationship where the following occur: I choose not to answer Const General: no acute distress HENMT Head: Yes normal to inspection Ears: hearing grossly normal bilaterally General nose exam: Normal external nose present Face and sinus: Yes normal facial exam Mouth: Normal oral and palatal mucosa present Throat: Yes posterior oropharynx normal Eyes General: appearance normal, both eyes and all related structures Neck Neck: Yes no lymphadenopathy and Yes supple Resp Effort & Inspection: normal respiratory effort Auscultation: clear to auscultation bilaterally Cardio Rhythm: regular rhythm Heart sounds: S1 normal heart sound present and S2 normal heart sound present GI Inspection: Yes normal to inspection Palpation (GI): Soft to palpation Percussion: Yes normal to percussion Auscultation: normal bowel sounds Coding Level of Care Code Est Pt Level 4 (58398) Diagnoses COPD (chronic obstructive pulmonary disease) J44.9 Hyperlipidemia E78.5 HTN (hypertension) I10 Left carotid artery stenosis I65.22 Migraine headache with aura G43.109 Additional Codes DEJA-7 Assessment Billing - DEJA-7 Assessment Tool: DEJA-7 Assessment 63551 ([id number]) PHQ-9 - 58454 - PHQ-9 Billing: Yes ([id number]) Assessment & Plan Assessment & Plan (1) COPD (chronic obstructive pulmonary disease): Comment: Telegy caused thrush Code(s): J44.9 - Chronic obstructive pulmonary disease, unspecified Category: Medical Plan: Try Anoro Ellipta instead of Trelegy, continue albuterol tobacco quitting discussed with the patient (2) Hyperlipidemia: Code(s): E78.5 - Hyperlipidemia, unspecified Category: Medical Plan: Continue rosuvastatin and Repatha check lipid profile today (3) HTN (hypertension): Code(s): I10 - Essential (primary) hypertension Category: Medical Plan: Continue Cardizem (4) Left carotid artery stenosis: Comment: s/p Right carotid endarterectomy 08/2023, established with Dr. Payton Code(s): I65.22 - Occlusion and stenosis of left carotid artery Category: Medical Plan: Continue high dose of statin Repatha and an aspirin. Patient will follow-up with vascular surgeon. She complains of frequent nosebleeds on a baby aspirin and had negative ENT evaluation (5) Migraine headache with aura: Comment: Used to see [facility], migraines controlled with Ubrelvy Code(s): G43.109 - Migraine with aura, not intractable, without status migrainosus Category: Medical Plan: Continue Ubrelvy prn patient will get established with new Neurology Orders: Orders Complete Blood Count Auto Diff Today E78.5 - Hyperlipidemia, unspecified, I10 - Essential (primary) hypertension, I50.30 - Unspecified diastolic (congestive) heart failure, J44.9 - Chronic obstructive pulmonary disease, unspecified TSH reflex Free T4 Today E78.5 - Hyperlipidemia, unspecified, I10 - Essential (primary) hypertension, I50.30 - Unspecified diastolic (congestive) heart failure, J44.9 - Chronic obstructive pulmonary disease, unspecified IRON PROFILE Today E78.5 - Hyperlipidemia, unspecified, I10 - Essential (primary) hypertension, I50.30 - Unspecified diastolic (congestive) heart failure, J44.9 - Chronic obstructive pulmonary disease, unspecified Comprehensive [place]. Panel Fast Today E78.5 - Hyperlipidemia, unspecified, I10 - Essential (primary) hypertension, I50.30 - Unspecified diastolic (congestive) heart failure, J44.9 - Chronic obstructive pulmonary disease, unspecified Lipid Panel Today E78.5 - Hyperlipidemia, unspecified, I10 - Essential (primary) hypertension, I50.30 - Unspecified diastolic (congestive) heart failure, J44.9 - Chronic obstructive pulmonary disease, unspecified Medications: New Ubrelvy (ubrogepant) 50 mg PO ONCE 10 tabs 3RF NS Anoro Ellipta 62.5-25 mcg/actuation (umeclidinium-vilanterol) 1 inh inhalation DAILY 180 ea 3RF NS
--- OUTSIDE RECORDS SUMMARY | 2024-09-15 12:02 | XMS_ITS | Data Portability ---
Author Organization [place] - [facility], Allergy Address [address] [address] Care Team Providers Care Accreditation Specialist Name Role Phone CHINTAN HERMOSILLO Referring Provider [phone] KRISTINA SANTIAGO Referring Provider Assessment Encounter Date [...] 14:49:14 03/15/2024 03/15/2024 Could consider refer to PROMOTION WRITER. Patient declined at this time as she [...] nerve palsy after R CEA 2023 izzy [facility] ([facility]), [address], [place], [address], 4 09:39:01 Medication Orders nystatin 100,000 unit/mL oral suspensio n 2023 024 [facility] #[id number], [address] [place], [address], 4 14:47:03 Patient TargetsNo targets recorded. Patient InstructionsNo instructions recorded. Reason for Referral None Reported. Results Created Date Observation Date Name Description Value Unit Range Abnormal Flag Note LastModifiedBy Organization Detail LastModifiedTime 03/01/20 24 02/26/2024 MRI, brain + brain stem, w/wo contr ast [facility] Access ion Number : [id number] Patien t Name: Leah Finch Record Number : [id number] Date of : 1954 Date of Exam: 2023 Referr ing Physic reed: Darnell Alarcon [facility] [address] [place] [address] Exam: MR Brain (C-/C+ ) CPT 94858 Room Descri ption: [facility] 3.0T MR Brain (C-/C+ ) CPT 25687 INDICA TION / [facility] ON: [...] ly Signed By: Gloria Dinh MD [email or web address] [facility] ([facility]) [address], [place], [address], 03/03/2024 16:51:42 Result Notes None recorded. Problems Name Problem SNOMED Code Status Onset Date Resolution Date Notes Provider Name and Address Organization Details Recorded Time Dysphonia 66454629 Active 2014 Unspecifie d voice and resonance disorder; Note: Date Diagnosed: 01/11/2015 1:58 PM (R49.9) [mapped from ICD9 code: 784.40] DARNELL ALARCON MD [address] [place] [address],[place] [address], [place], [address] , [facility] 4 23:36:39 Finding of resonance of voice 407600390 Active 2014 Unspecifie d voice and resonance disorder; Note: Date Diagnosed: 01/11/2015 1:58 PM (R49.9) [mapped from ICD9 code: 784.40] Not Available [facility] 4 02:56:28 Difficult y speaking Active 2014 Hoarseness ; Note: Date Diagnosed: 06/30/2014 5:37 PM (784.49) Voice disturbanc e, unspecifie d; Note: Date Diagnosed: 06/09/2014 2:02 PM (784.40) ; Start Date : 06/09/2014 DARNELL ALARCON MD [address] [place] [address],[place] [address], [place], [address] , [place] - [facility] 4 23:36:33 Hypogloss al nerve palsy 006553712 Active 2023 DARNELL ALARCON MD [address] [place] [address],[place] [address], [place], [address] , [place] - [facility] 4 14:40:28 Candidias is of mouth 89955309 Active 2023 DARNELL ALARCON MD [address] [place] [address],[place] [address], [place], [address] , [place] - [facility] 4 23:36:21 Problem Notes None recorded. Procedures Surgical History Date Name Laterality Status Provider Name and Address Organization Details Recorded Time 03/15/20 24 Telehealth completed DARNELL ALARCON MD [address] [place] [address],[place] [address], [place], [address], [place] - [facility] 03/14/2024 23:35:34 02/10/20 24 FOL_DP completed DARNELL ALARCON MD [address] [place] [address],[place] [address], [place], [address], [place] - [facility] 02/10/2024 09:33:36 operation on carotid artery completed Chinyere Chapman [place] - [facility] 02/10/2024 14:34:59 Hysterectomy completed Chinyere Chapman [place] - [facility] 02/10/2024 14:35:16 Imaging Results None recorded. Procedure Notes None recorded. Medical Equipment None Reported. Allergies Allergen ID Allergen Name Allergen Category Reaction Reaction Severity Criticality Documentation Date Start Date Code Code System Note Provider Name and Address Organization Details Recorded Time 56433 bupropion hydrochlo ride medicatio n hives Not available Not available 08/26/202396649 4 RxNorm React ion: skin rashe s, hives ;; Not Available [facility] 4 01:04:10 58855 Substance with sulfonami de structure and antibacte rial mechanism of action (substanc e) medicatio n hives Not available Not available 08/26/2023 52479 8003 SNOMED React ion: hives ;; Not Available [facility] 4 01:04:12 Medications Name Sig Start Date [...] mg tablet 02/09 completed Medicati on ID: 40525 Du ration Value: 14 Brand Name: hydrocod one-acet aminophe n Send Method: E-Prescr ibed Sub s Allowed: subs OK Speci al Instruct ion: TAKE 1 TABLET BY MOUTH 3 TIMES A DAY NEEDED M edicatio nGeneric Name: hydrocod one-acet aminophe n Not Available Not Available Not Available meloxicam 15 mg tablet TAKE 1 TABLET BY MOUTH EVERY DAY 02/09 completed Not Available Not Available Not Available aspirin 81 mg tablet,de layed release TAKE 1 TABLET BY MOUTH EVERY DAY active Not Available Not Available No t Available tramadol 50 mg tablet 02/09 completed Medicati on ID: [id number] Du ration Value: 14 Brand Name: tramadol Send Method: E-Prescr ibed Sub s Allowed: subs OK Husami al Instruct ion: TAKE 1 TABLET BY [...] mcg tablet 02/09 completed Medicati on ID: 79459 Du ration Value: 30 Brand Name: Synthroi [...] release tablet 02/09 completed Medicati on ID: 62816 Du ration Value: 7 Brand Name: morphine Send Method: E-Prescr ibed Sub s Allowed: subs TRES Hernandez al Instruct ion: TAKE 1 TABLET BY MOUTH 3 TIMES A DAY NEEDED M mignono nGeneric Name: morphine Not Available Not Available Not Available diazepam 5 mg tablet 02/09 completed Medicati on ID: 60545 Du ration Value: 23 Brand Name: diazepam Send Method: E-Prescr ibed Sub s Allowed: subs TRES Weineri al Instruct ion: TAKE 1 TABLET BY MOUTH TWICE A DAY Medi cationGe nericNam e: diazepam Not Available Not Available Not Available Vitamin B-12 1,000 mcg tablet 02/09 completed Medicati on ID: 06554 Du ration Value: 30 Brand Name: Vitamin [...] inhalatio n 02/09 completed Medicati on ID: [id number] Du ration Value: 30 Brand Name: Breo Ellipta Send Method: E-Prescr ibed Sub s Allowed: subs TRES Hernandez al Instruct ion: INHALE 1 PUFF EVERY DAY Medi cationGe nericNam e: Breo Ellipta Not Available Not Available Not Available Anoro Ellipta 62.5 mcg-25 mcg/actua tion powder for inhalatio n 02/09 completed Medicati on ID: [id number] Du ration Value: 30 Brand Name: Anoro Ellipta Send Method: E-Prescr ibed Sub s Allowed: subs TRES Speci al Instruct ion: INHALE 1 PUFF [...] Updated DateTime 02/10/2024 151.13 cm 29.8 kg/m2 84774.86 g Chinyere Chapman [place] - [facility] 02/10/2024 14:34:36 Social History None recorded. Functional Status None recorded. Mental Status None recorded. Family History Nothing Reported. Medical History Condition Response Anemia Y Arthritis Y Anxiety Y Cancer Y Migraines Y Thyroid Problems Y Asthma Y Gynecological HistoryNo gynecological history recorded. Obstetrics History GPAL:G 0 P 0 0 0 0 Past Encounters Encounter ID Performer Location Encounter Start Date Encounter Closed Date Diagnosis/Indication Diagnosis SNOMED-CT Code Diagnosis ICD10 Code Diagnosis Note [id number] DARNELL ALARCON MD [facility] [address] [address] 02/10/2024 13:42:52 02/10/2024 14:50:08 Hypoglossal nerve palsy 746636148 G52.3 right hypoglossa l weakness with atrophy Candidiasis of mouth 797 38619 B37.0 [id number] DARNELL ALARCON MD [facility] [address] [address] 03/15/2024 15:30:18 03/15/2024 16:18:03 Candidiasis of mouth 53603408 B37.0 Dysphonia 42661846 R49.9 Health Concerns Section Related Observation LastModified by Organization Detai ls LastModified Time None Recorded Concern Status LastModified by Organization Details LastModified Time None Recorded Advance Directives Directive None Recorded Payers Insurance Date Sequence Insurance Name Policy Number Policy Che Covered Member ID Che Member ID Guarantor Name 03/14/2024 1 [place]ICARE [place]: [employer] Leah Finch [id number] Leah Finch Notes Date Note Type Note Provider Name and Address Organization Details Recorded Time 02/10/2024 text/html speech, voice ch juan 08/2023 R CEA, Tata at [facility] woke her voice was disrupted. had some bloody mucus for a few daystongue dev to right after surgerystill feels like there is slurring of wordsno brain imagingtaste disturbance 11/15/[address] Jacobs, benign DARNELL ALARCON MD [address] [place] [address],[address], [address], [place] - [facility] 02/10/2024 14:50:04 03/15/2024 text/html speech, voice changefeels the nystatin has resulted in a slight improvementhas an additional concern of inability of blowing nose.currently is caring for her mother with dementia at her homehas not been using her inhaler much lately 08/2023 R CEA, Tata at [facility] woke her voice was disrupted. had some bloody mucus for a few daystongue dev to right after surgerystill feels like there is slurring of wordsno brain imagingtaste disturbance PV 02/10/24 [facility] - thrush rx nystatin. right hypoglossal weakness with atrophy, MRI brain requested 02/26[facility]20[facility] of T2 prolongation and white matter. No acute or subacute infarct, mass, hemorrhage or other intracranial abnormality. The mild T2 hyperintense foci in the white matter most likely reflect chronic small vessel disease. 11/15/[address] Jacobs, benign DARNELL ALARCON MD [address] [place] [address], [address], [facility] - [facility] 03/15/2024 15:42:58 OBGyn Episode No OBEpisode recorded.
== END 2024-09-15 12:16 | disposition home or self-care (01) ==
PROVIDERS: PCP Internal Medicine; Visit Provider Internal Medicine
DX: J44.9 Chronic obstructive pulmonary disease, unspecified (principal); E78.5 Hyperlipidemia, unspecified; I10 Essential (primary) hypertension; I65.22 Occlusion and stenosis of left carotid artery; G43.109 Migraine with aura, not intractable, without status migrainosus

== ENCOUNTER → 2024-09-15 11:09 | Outpatient (BNVA) | payer MEDICARE, SELFPAY | PROVIDERS: PCP Internal Medicine; Visit Provider Internal Medicine | DX: J44.9 Chronic obstructive pulmonary disease, unspecified (principal); E78.5 Hyperlipidemia, unspecified; I10 Essential (primary) hypertension; I65.22 Occlusion and stenosis of left carotid artery; G43.109 Migraine with aura, not intractable, without status migrainosus | CPT/HCPCS: 96127; 99212 ==

== ENCOUNTER 2025-02-25 09:24 | Outpatient (AMB) | payer MEDICARE, SELFPAY ==
--- NOTE | 2025-02-25 07:54 | A.OFFVIS_ITS ---
Intake Visit Reasons: Current Smoker Allergies atorvastatin (Lipitor) Allergy (Severe, Verified 09/15/24 11:18) nausea bupropion (Wellbutrin) Allergy (Severe, Verified 09/15/24 11:18) Rash levofloxacin (Levaquin) Allergy (Severe, Verified 09/15/24 11:18) Rash Sulfa (Sulfonamide Antibiotics) Allergy (Severe, Verified 09/15/24 11:18) burning sensation red burn manuel amitriptyline Adverse Reaction (Severe, Verified 09/15/24 11:18) headaches, migraines metoprolol Adverse Reaction (Intermediate, Verified 09/15/24 11:18) Nausea topiramate (Topamax) Adverse Reaction (Unknown, Verified 09/15/24 11:18) sleepiness HPI HPI Current Smoker: Details: Initial visit for this 70 smoker with a 24PYH. Patient started smoking at age 22 for 48 years at 1/2ppd. Now between 3-10 cigarettes a day. . Denies marijuana use. Denies second hand smoke exposure. History exposure to chemicals - worked at [employer] . Denies known family history of lung cancer. Personal history of cervical cancer at 22yo. . Previously in [facility]'s LDCT program She did have a prior chest CT at [facility] 07/2023 showing a 4mm RLL nodule. . Denies recent travel outside the [place]. Denies recent respiratory illness or recent hospitalization for respiratory iss ues. History testing positive for COVID. Admits receiving COVID Vaccine. . Denies fever, chills, new/worsening cough, hemoptysis, hoarseness or dysphagia. Denies significant chest pain, significant dyspnea or unintentional weight loss. Patient Lung Cancer Screening Questionnaire reviewed with patient by provider. . Shared Decision Making Completed. Patient meets criteria. Discussed in detail with patient, the risk vs benefit of LDCT screening. Patient consents to proceed with scan. Discussed smoking cessation. [facility] Medical History (Updated 02/25/25 @ 09:45 by Tiara Treviño PA-C) Ambulates with cane Diastolic CHF Carotid stenosis, bilateral HTN (hypertension) Hyperlipidemia Hypothyroidism COPD (chronic obstructive pulmonary disease) Lung nodule Nicotine dependence, cigarettes, uncomplicated Vitamin D deficiency Vitamin B12 deficiency Anxiety Migraine headache with aura Tension headache History of postoperative nausea Knee pain, right Leg pain Surgical History (Updated 12/30/24 @ 12:40 by Tiara Treviño PA-C) History of right-sided carotid endarterectomy History of decompression of ulnar nerve Hx of vaginal hysterectomy (~1994) Hx of laparoscopy History of esophagogastroduodenoscopy (EGD) H/O colonoscopy History of laryngoscopy Family History Father HTN (hypertension) Mother COPD (chronic obstructive pulmonary disease) HTN (hypertension) Social History (Updated 02/25/25 @ 09:45 by Tiara Treviño PA-C) Household Members: Family Household Members Other:: 88 yr old mom Housing: House Are you a primary manager medicare marketing to a significant other at home: Yes (88 yr old mom, looking for help post-op, brother can help with some care) Do you presently have visiting nurse or other home services: No Patient Tobacco Use Status: Current everyday Tobacco user Tobacco use type: Cigarette Cigarettes Per Day: 5 Years Smoked: (onset 22yo, 1/2ppd x 48yrs, 24pyh) e-Cigarette/Vaping Use: Never Used service: No Current occupational status: retired Cognitive needs: No Hearing needs: No Vision needs: Yes Assessment & Plan Assessment & Plan (1) Nicotine dependence, cigarettes, uncomplicated: Comment: (onset 22yo, 1/2ppd x 48yrs, 24pyh) Code(s): F17.210 - Nicotine dependence, cigarettes, uncomplicated Category: Medical Plan: - SDM visit completed today in office. - Patient meets criteria for LDCT for lung cancer screening purposes and is asymptomatic. - Smoking cessation counseling offered. Patients can always call [phone]. - Will arrange for a LDCT scan of the chest for screening purposes at [facility]. - Risks, benefits, and alternatives were discussed in detail and the patient agrees to proceed. - Risks discussed include but are not limited to: radiation exposure, anxiety during testing and while awaiting results, false negatives, false positives and possibility of additional intervention such as further imaging or surgical procedures for benign disease. - Benefits are obviously detection of lung cancer at an early stage which can lead to improved outcomes. - Discussed the importance of screening program compliance with adherence to yearly LDCT scan as scheduled - or sooner interval scans for personalized screening regimen. - Discussed follow up plan. Our office will send a letter discussing results and if needed set up phone call and office visit based on CT findings. - Patient educated on results categorization and the management decisions for suspicious findings potentially found on the screening LDCT scan. Any patient with a Lung RADS score of 3 or 4 will be reviewed by a multidisciplinary team at [facility] to form a plan of action in regards to scan findings. - If further work up is warranted for a suspicious lung finding this will be followed by the Lung Cancer Screening program in conjunction with the Thoracic Surgery Department at [facility]. - A copy of the office note and LDCT will be sent to the patient's PCP - as well as documentation on any associated further plans of care. - Incidental findings on LDCT are the PCP's responsibility. These findings are indicated with an S finding on the LDCT Assessment. A note discussing the findings will be sent to the PCP who is then responsible for further management. - All questions answered.? Coding Level of Care Code Lung Cancer Screening G0296 Diagnoses Nicotine dependence, cigarettes, uncomplicated F17.210
--- OUTSIDE RECORDS SUMMARY | 2025-02-25 10:26 | XMS_ITS | Clinical Summary ---
Author Organization [facility] Address [address] [place] [address] Phone Care Team Providers Care Operations Scheduler Name Role Phone Chintan Hadley MD Primary Care Provider [phone] Allergies Active Allergy Reactions Criticality Noted Date Comments Sulfa (Sulfonamide Antibiotics) 01/13 Bupropion Hcl 02/01/2025 Medications Ventolin HFA 90 mcg/actuation inhaler Inhale 2 puffs by mouth every 6 (six) hours if needed. 01/11/20 25 Active aspirin 81 mg EC tablet Take 1 tablet (81 mg total) by mouth 1 (one) time each day. 10/27/19 25 Active cholecalcifero l (VITAMIN D-3) 1,250 mcg (50,000 unit) capsule Take 1 capsule (50,000 Units total) by mouth 1 (one) time per week. 11/11/19 25 Active cyanocobalamin (VITAMIN B-12) 1,000 mcg/mL injection INJECT 0.1 ML INTRAMUSCULARLY EVERY WEEK SINGLE USE VIALS 10/27/19 25 Active dilTIAZem CD (CARDIZEM CD) 180 mg 24 hr capsule Take 1 capsule (180 mg total) by mouth 1 (one) time each day. 01/11/20 25 Active Repatha SureClick 140 mg/mL pen injector injection INJECT 140 MG SUBCUTANEOUSLY EVERY 2 WEEKS 01/27/20 25 Active Synthroid 88 mcg tablet Take 1 tablet (88 mcg total) by mouth 1 (one) time each day. 12/10/19 25 Active Ubrelvy 50 mg tablet TAKE 1 TABLET BY MOUTH ONCE DIRECTED Active Anoro Ellipta 62.5-25 mcg/actuation inhaler Inhale 1 puff by mouth 1 (one) time each day if needed (SHORTNESS OF BREATH). 01/12/20 25 Active rOPINIRole (REQUIP) 0.25 mg tablet Take 2 tablets (0.5 mg total) by mouth at bedtime as needed (RESTLESS LEG). Active meclizine (ANTIVERT) 25 mg tablet Take 1 tablet (25 mg total) by mouth 3 (three) times a day if needed for dizziness for up to 9 days. 28 tablet 02/02/20 25 025 Encounters Date Type Department Care Team Description 02/01/2025 2:18 PM EDT - 02/01/2025 8:17 PM EDT Emergency [facility] Emergency [address] [place] [address] Elaine Bowles DO Gordon, Ruth, MD Dizziness (Primary Dx) Discharge Disposition: Home or Self Care from Last 3 Months Social History Tobacco Use Types Packs/Day Years Used Date Smoking Tobacco: Every Day Cigarettes Smokeless Tobacco: Never Tobacco Cessation:Ready to Q uit: Not Asked; Counseling Given: Not Answered Alcohol Use Standard Drinks/Week Comments Never 0 (1 standard drink = 0.6 oz pur e alcohol) Comments Unknown Sex and Gender Information Value Date Recorded Sex Assigned at Not on file Legal Sex Female 10:42 PM EST Gender Identity Not on file Sexual Orientation Not on file Obstetrics History Last Filed Vital Signs Vital Sign Reading Time Taken Comments Blood Pressure 121/57 02/01/2025 5:11 PM EDT Pulse 80 02/01/2025 5:11 PM EDT Temperature 36.9 C (98.4 F) 02/01/2025 5:11 PM EDT Respiratory Rate 18 02/01/2025 5:11 PM EDT Oxygen Saturation 95% 02/01/2025 5:11 PM EDT Inhaled Oxygen Concentration - - Weight 68.5 kg (151 lb) 02/01/2025 11:38 AM EDT Height 151.1 cm (4' 11.5 ) 02/01/2025 11:38 AM E DT Body Mass Index 29.99 02/01/2025 11:38 AM EDT Plan of Treatment Health Maintenance Due Date Last Done Comments Colorectal Cancer Screening: Colonoscopy 1955 DTaP,Tdap,and Td Vaccines (1 - Tdap) 01/04/1975 Pneumococcal Vaccine: 50+ Years (1 of 2 - PCV) 01/04/1975 Zoster Vaccines (1 of 2) 01/04/2006 Cholesterol Screening (Lipid Panel) 03/17/2022 Falls Risk Assessment 03/17/2022 Hepatitis C Screening 03/17/2022 Lung Cancer Screening (Low Dose CT) 03/17/2022 Medicare Annual Wellness Visit 03/17/2022 Osteoporosis Screening (Bone Density Screening) 03/17/2022 Social Influencers of Health Screening 03/17/2022 Breast Cancer Screening 03/23/2024 03/23/2022, 06/26 Depression Screening 04/14/2024 COVID-19 Vaccine ( season) 2024 08/08/2020, 07/18/2020 Influenza Vaccine (#1) 2024 , 01/15/2019, 01/13/2018, Additional history exists RSV Immunization Adult Patients (1 - 1-dose 75+ series) 01/04/2031 HIB [...] age to complete this topic Meningococcal B Vaccine Aged Out No l onger eligible based on patient's age to complete this topic RSV Immunization Patients Under 20 months Aged Out No longer eligible based on patient's age to complete this topic Varicella Vaccines Aged Out No longer eligible based on patient's age to complete this topic Procedures Procedure Name Priority Date/Time Associated Diagnosis Comments ECG ANNOTATED 02/02/2025 URINALYSIS WITH REFLEX MICROSCOPIC STAT 02/01/2025 5:58 PM EDT URINALYSIS WITH REFLEX MICROSCOPIC STAT 02/01/2025 5:58 PM EDT MONTES URINE CULTURE TUBE Routine 02/01/2025 5:56 PM EDT EXTRA TUBES Routine 02/01/2025 5:[address] ANGIO HEAD/NECK WO AND/OR W CONTRAST STAT 02/01/2025 5:21 PM EDT TROPONIN I HIGH SENSITIVITY STAT 02/01/2025 3:44 PM EDT POCT GLUCOSE BLOOD Routine 02/01/2025 3: 10 PM EDT ECG 12-LEAD STAT 02/01/2025 3:04 PM EDT CBC WITH AUTO DIFFERENTIAL STAT 02/01/2025 12:40 PM EDT MAGNESIUM STAT 02/01/2025 12:40 PM EDT BASIC METABOLIC PANEL STAT 02/01/2025 12:40 PM EDT CBC AND DIFFERENTIAL STAT 02/01/2025 12:40 PM EDT ERIK SCREENING DIGITAL Routine 03/23/2022 2:48 PM EST Encounter for screening mammogram for malignant neoplasm of breast from Last 3 Months or Most Recently Relevant to Health Maintenance Results * ECG-Annotated (02/02/2025) us Provider Onbase MD ECG ORDERABLES Final Result * (ABNORMAL) Urinalysis with reflex microscopic (02/01/2025 5:58 PM EDT) Specific [place] Urine >1.045(H) 1.003 - 1.030 LAB URINALYSIS - AUTOMATED METHOD 02/01/2025 6:45 PM EDT [facility] pH, Urine 6.5 5.0 - 8.0 pH LAB URINALYSIS - AUTOMATED METHOD 02/01/2025 6:45 PM [facility] Leukocytes, Urine Small(A) Negative LAB URINALYSIS - AUTOMATED METHOD 02/01/2025 6:45 PM [facility] Nitrite, Urine Negative Negative LAB URINALYSIS - AUTOMATED METHOD 02/01/2025 6:45 PM [facility] Protein, Urine Trace <=Trace mg/dL LAB URINALYSIS - AUTOMATED METHOD 02/01/2025 6:45 PM [facility] Glucose, Urine Negative Negative mg/dL LAB URINALYSIS - AUTOMATED METHOD 02/01/2025 6:45 PM [facility] Ketones, Urine Trace(A) Negative mg/dL LAB URINALYSIS - AUTOMATED METHOD 02/01/2025 6:45 PM [facility] Urobilinogen , Urine 1.0 0.2 - 1.0 mg/dL LAB URINALYSIS - AUTOMATED METHOD 02/01/2025 6:45 PM [facility] Bilirubin, Urine Negative Negative LAB URINALYSIS - AUTOMATED METHOD 02/01/2025 6:45 PM [facility] Blood, Urine Negative Negative LAB URINALYSIS - AUTOMATED METHOD 02/01/2025 6:45 PM [facility] RBC, Urine 2.8 0 - 4 /HPF LAB URINALYSIS - AUTOMATED METHOD 02/01/2025 6:45 PM [facility] WBC, Urine 26.0(H) 0 - 4 /HPF LAB URINALYSIS - AUTOMATED METHOD 02/01/2025 6:45 PM [facility] Squamous Epithelial, Urine 88(H) 0 - 60 /LPF LAB URINALYSIS - AUTOMATED METHOD 02/01/2025 6:45 PM [facility] Bacteria, Urine Negative Negative /HPF LAB URINALYSIS - AUTOMATED METHOD 02/01/2025 6:45 PM [facility] Hyaline Casts, Urine 12.8(H) 0 - 3 /LPF LAB URINALYSIS - AUTOMATED METHOD 02/01/2025 6:45 PM EDT [facility] Urine Urine specimen obtained by clean catch procedure / Unknown Non-blood Collection / Unknown 02/01/2025 5:58 PM EDT 02/01/2025 6:26 PM EDT Gail GRACE LAB URINE ORDERABLES Final Resul t Performing Organization Address [facility]/ZIP Co de Phone Number [facility] [address] [place] [address], [place] [phone] * Montes urine culture tube (02/01/2025 5:56 PM EDT) Extra Tube Hold for add-ons. 02/01/2025 8:01 PM EDT [facility] Comment:Auto resulted. Urine Urine specimen obtained by clean catch procedure / Unknown 02/01/2025 5:56 PM EDT 02/01/2025 6:27 PM EDT Elaine Bowles DO LAB URINE ORDERABLES Final Re sult Performing Organization Address [facility] Co de Phone Number [facility] [address] [place] [address], [place] [phone] * CT Angio Head/Neck wo and/or w Contrast (02/01/2025 5:21 PM EDT) Anatomical Region Laterality Modality Head and Neck Computed Tomogra phy 02/01/2025 6:10 PM EDT Impressions 02/01/2025 6:10 PM EDT 1. No acute intracranial findings. 2. No evidence of hemodynamically significant stenosis within the major arteries of the head or neck. 3. Short-segment approximately 50 percent stenosis of the left subclavian artery at its origin. 4. Short-segment less than 50 percent stenosis of the proximal left internal carotid artery This document has been electronically signed by: Jesus Manuel Colmenares MD on 02/01/2025 18:10:50 Narrative 02/01/2025 6:10 PM EDT INDICATION: OTHER CT head without contrast CT angiography head and neck with contrast. 3D Postprocessing. COMPARISON: None provided. FINDINGS: HEAD CT: No intra-axial mass, midline shift, hydrocephalus, or acute hemorrhage. Basal ganglia mineralization present bilaterally. No significant atrophy-like change or white matter disease. The visualized paranasal sinuses and mastoid air cells are normal. Atherosclerotic vascular calcifications. The orbits are unremarkable. No calvarial fracture. HEAD AND NECK CTA: Calcified plaque present along the aortic arch without significant stenosis. Calcified plaque present along the origin of the left subclavian artery causing short-segment approximately 50 percent stenosis. Calcified plaque present at the carotid bulb and along the proximal left internal carotid artery causing less than 50 percent stenosis. Calcified plaque present along the cavernous portion of the intracranial internal carotid arteries bilaterally without significant stenosis. No aneurysm, dissection, hemodynamically significant stenoses, or occlusion. No abnormal intracranial enhancement. No cervical mass or fluid collection. Emphysema of the partially visualized lung apices. No acute fracture. Moderate lower cervical spondylosis. Procedure Note Jesus Manuel Colmenares MD - 02/01/2025 INDICATION: OTHER CT head without contrast CT angiography head and neck with contrast. 3D Postprocessing. COMPARISON: None provided. FINDINGS: HEAD CT: No intra-axial mass, midline shift, hydrocephalus, or acute hemorrhage. Basal ganglia mineralization present bilaterally. No significant atrophy-like change or white matter disease. The visualized paranasal sinuses and mastoid air cells are normal. Atherosclerotic vascular calcifications. The orbits are unremarkable. No calvarial fracture. HEAD AND NECK CTA: Calcified plaque present along the aortic arch without significant stenosis. Calcified plaque present along the origin of the leftsubclavian artery causing short-segment approximately 50 percent stenosis.Calcified plaque present at the carotid bulb and along the proximal left internal carotid artery causing less than 50 percent stenosis. Calcified plaque present along the cavernous portion of the intracranial internal carotid arteries bilaterally without significant stenosis. No aneurysm, dissection, hemodynamically significant stenoses, or occlusion. No abnormal intracranial enhancement. No cervical mass or fluid collection. Emphysema of the partially visualized lung apices. No acute fracture. Moderate lower cervical spondylosis. IMPRESSION: 1. No acute intracranial findings. 2. No evidence of hemodynamically significant stenosis within the major arteries of the head or neck. 3. Short-segment approximately 50 percent stenosis of the leftsubclavian artery at its origin. 4. Short-segment less than 50 percent stenosis of the proximal left internal carotid artery This document has been electronically signed by: Jesus Manuel Colmenares MD on 02/01/2025 18:10:50 us Elaine Bowles DO IMG CT PROCEDURES Final Resul t * Troponin I high sensitivity (02/01/2025 3:44 PM EDT) [facility] High Sensitivity Troponin I 31 <=54 ng/L LAB CHEMISTRY METHOD 02/01/2025 4:45 PM EDT [facility] Blood Venous blood specimen / Unknown Venipuncture / Unknown 02/01/2025 3:44 PM EDT 02/01/2025 3:57 PM EDT Narrative [facility] - 02/01/2025 4:45 PM EDT High levels of biotin in samples may falsely decrease hsTroponin values. Use caution when interpreting hsTroponin results in patients taking biotin who exhibit renal impairment (eGFR <60) or in patients taking more than 20 mg/day of biotin. us Gail GRACE LAB BLOOD ORDERABLES Final Resul t Performing Organization Address City/[facility]/ZIP Co de Phone Number [facility] [address] [place] [address], [place] [phone] * POCT Glucose, blood (02/01/2025 3:10 PM EDT) [facility] Glucose POCT 91 70 - 100 mg/dL 02/01/2025 3:10 PM EDT [facility] Blood Capillary blood specimen / Unknown 02/01/2025 3:10 PM EDT 02/01/2025 3:12 PM EDT us Elaine Bowles DO LAB POINT OF CARE TE ST DOCKED DEVICE UNSOLICITED RESULTS Final Result [facility] [address] [place] [address], * ECG 12 lead (02/01/2025 3:04 PM EDT) Ventricular Rate ECG 79 BPM GEMUSE Atrial Rate 79 BPM GEMUSE P-R Interval 132 ms GEMUSE QRS Duration 84 ms GEMUSE Q-T Interval 402 ms GEMUSE QTc 460 ms GEMUSE P Wave Millis 75 degrees GEMUSE R Millis 22 degrees GEMUSE T Millis 35 degrees GEMUSE ECG Interpretation Normal sinus rhythm with sinus arrhythmia Normal ECG When compared with ECG of 18-JUL-1999 09:56, Nonspecific T wave abnormality now evident in Anterior leads Confirmed by Raiza FELIZ JOHN ([id number]) on 02/02/2025 7:11:28 PM GEMUSE 02/01/2025 3:04 PM EDT 02/02/2025 7:11 PM EDT Marilia GRACE ECG ORDERABLES Final Re sult GEMUSE * (ABNORMAL) CBC auto differential (02/01/2025 12:40 PM EDT) WBC 8.6 4.8 - 10.8 K/mcL LAB HEMETOLOGY METHOD 02/01/2025 1:15 PM EDT [facility] RBC 4.60 3.80 - 4.80 M/[facility] LAB HEMETOLOGY METHOD 02/01/2025 1:15 PM EDT [facility] Hemoglobin 13.3 11.5 - 16.0 g/dL LAB HEMETOLOGY METHOD 02/01/2025 1:15 PM EDT [facility] Hematocrit 41.6 35.0 - 47.0 % LAB HEMETOLOGY METHOD 02/01/2025 1:15 PM EDT [facility] MCV 90.8 79.0 - 98.0 FL LAB HEMETOLOGY METHOD 02/01/2025 1:15 PM EDT [facility] MCH 29.0 27.0 - 32.0 pcg LAB HEMETOLOGY METHOD 02/01/2025 1:15 PM EDT [facility] MCHC 32.0 32.0 - 37.0 g/dL LAB HEMETOLOGY METHOD 02/01/2025 1:15 PM EDT [facility] RDW 14.7 11.0 - 15.0 % LAB HEMETOLOGY METHOD 02/01/2025 1:15 PM EDT [facility] Platelets 371 130 - 400 K/mcL LAB HEMETOLOGY METHOD 02/01[facility]2025 [facility] MPV 9.2 7.0 - 11.0 FL LAB HEMETOLOGY METHOD 02/01/2025 1:15 PM [facility] NRBC 0.0 <1.0 % LAB HEMETOLOGY METHOD 02/01/2025 1:15 [facility] NRBC Absolute 0.00 <0.10 K/mcL LAB HEMETOLOGY METHOD 02/01/2025 1:15 [facility] Neutrophils Relative 52.4 % LAB HEMETOLOGY METHOD 02/01/2025 1:15 PM [facility] Lymphocytes Relative 32.1 % LAB HEMETOLOGY METHOD 02/01/2025 1:15 PM EDT [facility] Monocytes Relative 7.8 % LAB HEMETOLOGY METHOD 02/01/2025 1:15 PM EDT [facility] Eosinophils Relative 6.5 % LAB HEMETOLOGY METHOD 02/01/2025 1:15 PM [facility] Basophils Relative 0.7 % LAB HEMETOLOGY METHOD 02/01/2025 1:15 PM [facility] Immature Granulocytes Relative 0.5 % LAB HEMETOLOGY METHOD 02/01/2025 1:15 PM EDT [facility] Neutrophils Absolute 4.52 1.50 - 7.00 K/[facility] LAB HEMETOLOGY METHOD 02/01/2025 1:15 PM EDT [facility] Lymphocytes Absolute 2.76 1.00 - 5.00 K/mcL LAB HEMETOLOGY METHOD 02/01/2025 1:15 PM EDT [facility] Monocytes Absolute 0.67 0.20 - 1.00 K/[facility] LAB HEMETOLOGY METHOD 02/01/2025 1:15 PM EDT [facility] Eosinophils Absolute 0.56(H) 0.00 - 0.50 K/[facility] LAB HEMETOLOGY METHOD 02/01/2025 1:15 PM EDT [facility] Basophils Absolute 0.06 0.00 - 0.20 K/[facility] LAB HEMETOLOGY METHOD 02/01/2025 1:15 PM EDT [facility] Immature Granulocytes Absolute 0.04(H) 0.00 - 0.03 K/[facility] LAB HEMETOLOGY METHOD 02/01/2025 1:15 PM EDT [facility] Blood Venous blood specimen / Unknown Venipuncture / Unknown 02/01/2025 12:40 PM EDT 02/01/2025 1:06 PM EDT Marilia GRACE LAB BLOOD ORDERABLES Fin al Result [facility] [address] [place] [address], * Magnesium (02/01/2025 12:40 PM EDT) Magnesium 2.4 1.9 - 2.6 mg/dL LAB CHEMISTRY METHOD 02/01/2025 1:53 PM EDT [facility] Blood Venous blood specimen / Unknown Venipuncture / Unknown 02/01/2025 12:40 PM EDT 02/01/2025 1:06 PM EDT Marilia GRACE LAB BLOOD ORDERABLES Manas al Result [facility] [address] [place] [address], [place] [phone] * Basic metabolic panel (02/01/2025 12:40 PM EDT) Sodium 136 133 - 145 mmol/L LAB CHEMISTRY METHOD 02/01/2025 1:53 PM EDT [facility] Potassium 4.6 3.5 - 5.5 mmol/L LAB CHEMISTRY METHOD 02/01/2025 1:53 PM [facility] Chloride 105 96 - 110 mmol/L LAB CHEMISTRY METHOD 02/01/2025 1:53 PM [facility] CO2 27 21 - 32 mmol/L LAB CHEMISTRY METHOD 02/01/2025 1:53 PM T [facility] Anion Gap 4 3 - 11 LAB CHEMISTRY METHOD 02/01/2025 1:53 PM [facility] Glucose 87 70 - 100 mg/dL LAB CHEMISTRY METHOD 02/01/2025 1:53 PM [facility] BUN 19 5 - 25 mg/dL LAB CHEMISTRY METHOD 02/01/2025 1:53 PM [facility] Creatinine 0.88 0.50 - 1.10 mg/dL LAB CHEMISTRY METHOD 02/01/2025 1:53 PM [facility] eGFR 71 >=60 mL/min/1. 73m2 LAB CHEMISTRY METHOD 02/01/2025 1:53 PM [facility] Comment:Calculation based on the Chronic Kidney Disease Epidemiology Collaboration (CKD-EPI) equation refit without adjustment for race. BUN/Creatinine Ratio 21.6 LAB CHEMISTRY METHOD 02/01/2025 1:53 PM [facility] Calcium 9.1 8.5 - 10.5 mg/dL LAB CHEMISTRY METHOD 02/01/2025 1:53 PM EDT [facility] Blood Venous blood specimen / Unknown Venipuncture / Unknown 02/01/2025 12:40 PM EDT 02/01/2025 1:06 PM EDT us Marilia GRACE LAB BLOOD ORDERABLES Fin al Result [facility] [address] [place] [address], * ERIK SCREENING DIGITAL (03/23/2022 2:48 PM EST) Anatomical Region Laterality Modality Mammography 03/21/2022 8:48 AM EST Narrative 03/23/2022 2:48 PM EST [facility] Diagnostic Imaging Department [address] [place] [address] Patient: LEAH FINCH Sujey /Age/Sex: 1955 - 67 - F Unit#: [id number] Location/Status: SPDIMAM/REG CLI Mnemonic/Ordering Site: DIGSC/SPMAM Ordering Physician: CHINTAN HADLEY MD Erik Screening Digital - 03/21/22938 EXAM: Erik Screening Digital EXAM DATE AND TIME: 03/21/2022 9:39 AM HISTORY: Screening. Right breast biopsy in 1982, pathology benign. COMPARISON: 06/26/20, 04/03/17, 03/21/14 TECHNIQUE: CC and MLO views of both breasts were obtained using full field digital mammography. Bilateral digital breast tomosynthesis was performed in the MLO projection. Computer aided detection with [employer] 7.2-H and [employer] 3D 3.1 was employed. TISSUE DENSITY: b. [...] RECOMMENDATION(S): 1: Special mammographic view(s) needed BILATERAL 27790, [id number] 3340F, 7025F Dictating Physician: MARLEN MANRIQUEZ MD Electronically Signed by: MARLEN MANRIQUEZ MD Dic Date/Time: 03/23/221445 Sign date/Time: 03/23/221447 Procedure Note Marlen Manriquez MD - 05/16/2023 [facility] Diagnostic Imaging Department [address] [place] [id number] Patient: LEAH FINCH/Age/Sex: 1955 - 67 - F Unit#: [id number] Location/Status: SPDIMAM/REG CLI Mnemonic/Ordering Site: [facility] Ordering Physician: CHINTAN HADLEY MD Erik Screening Digital - 03/21/22938 EXAM: Erik Screening Digital EXAM DATE AND TIME: 03/21/2022 9:39 AM HISTORY: Screening. Right breast biopsy in 1982, pathology benign. COMPARISON: 06/26/20, 04/03/17, 03/21/14 TECHNIQUE: CC and MLO views of both breasts were obtained using fullfield digital mammography. Bilateral digital breast tomosynthesis was performedin the MLO projection. Computer aided detection with [employer] 7.2-H and[employer] 3D 3.1 was employed. TISSUE DENSITY: b. [...] RECOMMENDATION(S): 1: Special mammographic view(s) needed BILATERAL [id number], [id number] 3340F, 7025F Dictating Physician: MARLEN MANRIQUEZ MD Electronically Signed by: MARLEN MANRIQUEZ MD Dic Date/Time: 03/23/22 1446 Sign date/Time: 03/23/22 1448 Chintan Hadley MD IMG BI PROCEDURES Final Resul t from Last 3 Months or Most Recently Relevant to Health Maintenance Insurance MEDICARE Care Teams Operations Scheduler Relationship Specialty Start Date End Date Chintan Hadley MD [address] [place] [address] PCP - General Internal Medicine 02/01/25
== END 2025-02-25 10:25 | disposition home or self-care (01) ==
PROVIDERS: PCP Internal Medicine; Referring Provider Internal Medicine; Visit Provider Physician Assistant Medical
DX: F17.210 Nicotine dependence, cigarettes, uncomplicated (principal)
CPT/HCPCS: G0296

== ENCOUNTER 2025-02-25 09:46 | Outpatient (REF) | payer MEDICARE, SELFPAY ==
--- NOTE | ~2025-02-25 | CT_ITS ---
CLINICAL HISTORY: F17.210 - Nicotine dependence, cigarettes, uncomplicated CT lung cancer screening (LDCT) Comparison: None provided Technique: Axial CT images of the chest using low-dose technique. Referring provider counseled the patient on shared decision-making for LDCT screening. Additional counseling was provided on smoking cessation. Effective radiation dose total: DLP 33.1 mGycm, CTDIvol 1 mGy. Findings: Lung: Trachea and central bronchi are patent. No dense consolidation, pleural effusion or pneumothorax. 2 mm nodule with a ground-glass halo in the right upper lobe is seen on image 50 of series 4, likely inflammatory. 6 mm right lower lobe nodule abutting the fissure may be an intrapulmonary lymph node. A few additional subpleural nodules measuring up to 5 mm are noted with the largest in the right lower lobe image 90 series 4. Coronary artery calcifications: Moderate to heavy Heart size is normal. No pericardial effusion or vascular dilation. No adenopathy. Decompressed esophagus. No chest wall lesions or axillary adenopathy. Heavy calcified atheromatous plaquing of the aorta. Limited upper abdomen: Unremarkable Other: No acute osseous findings. IMPRESSION: Scattered noncalcified pulmonary nodules bilaterally, the largest measuring 6 mm abutting the fissure in the right lower lobe. This may be an intrapulmonary lymph node. Six-month follow-up chest CT recommended. Lung rads category 3 This document has been electronically signed by: Marva Christianson MD on 02/26/2025 10:06:51
--- OUTSIDE RECORDS SUMMARY | 2025-02-25 10:57 | XMS_ITS | Data Portability ---
Author Organization [place] - [facility], Allergy Address [address] [address] Care Team Providers Care Refractive Surgeon Name Role Phone CHINTAN HERMOSILLO Referring Provider KRISTINA SANTIAGO Referring Provider [phone] Assessment Encounter Date Assessment Date Assessment LastModified [...] 14:49:14 03/15/2024 03/15/2024 Could consider refer to [facility]. Patient declined at this time as she [...] nerve palsy after R CEA 2023 izzy [facility] ([facility]), [address], [place], [address], 4 09:39:01 Medication Orders nystatin 100,000 unit/mL oral suspensio n 2023 024 [facility] #[id number], [address] [facility], [place], [address], 14:47:03 Patient TargetsNo targets recorded. Patient InstructionsNo instructions recorded. Reason for Referral None Reported. Results Created Date Observation Date Name Description Value Unit Range Abnormal Flag Note LastModifiedBy Organization Detail LastModifiedTime 03/01/20 24 02/26/2024 MRI, brain + brain stem, w/wo contr ast [facility] Access ion Number : [id number] Patimanuelito t Name: Leah Finch Record Number : [id number] Date of : 1954 Date of Exam: 2023 Referr ing Physic reed: Darnell Alarcon [facility] [address] [place] [address] Exam: MR Brain (C-/C+ ) CPT 73713 Room Descri ption: [facility] 3.0T MR Brain (C-/C+ ) CPT 31478 INDICA TION / CLINIC [facility] ON: [...] ly Signed By: Gloria Dinh MD [email or web address] [facility] ([facility]) [address], [place], [address], 03/03/2024 16:51:42 Result Notes Documentation Provider Name and Address Organization Details Recorded Time Mri, Brain + Brain Stem, W/wo Contrast : [facility] Accession Number: [id number] Patient Name: Leah Finch Date of : 1955 Date of Exam: 02-26-2024 Referring Physician: Darnell Alarcon [facility] 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 14 mL Dotarem intravenous contrast was administered. COMPARISON: None. FINDINGS: BRAIN and EXTRA-AXIAL SPACES: The midline structures, including sella, corpus callosum, and craniocervical junction, are unremarkable. There is no mass effect, midline shift, or effacement of the basal cisterns. On diffusion weighted imaging, there are no regions of restricted diffusion to indicate an acute or subacute infarct. There is no evidence of intracranial hemorrhage on susceptibility sensitive sequence. Mild scattered foci of T2 prolongation are seen in the white matter. Ventricles, cisterns, and sulci are normal in size and configuration, without hydrocephalus. No abnormal extra-axial fluid collections are seen. Meningeal surfaces are normal. High-resolution of the basal cisterns demonstrates no effacement of the cisterns. No nodularity, enhancement, or effacement of the hypoglossal nerves is demonstrated. No abnormal intracranial enhancement is seen. Major intracranial flow voids are preserved. EXTRACRANIAL SOFT TISSUES: Orbits are unremarkable. Paranasal sinuses and mastoids are unremarkable. BONES: Marrow signal is preserved. IMPRESSION: 1. No acute/subacute infarct, mass, hemorrhage, or other acute intracranial abnormality. 2. Mild T2/FLAIR hyperintense foci in the white matter, nonspecific but most likely reflecting chronic small vessel disease. 3. Note that MRI brain does not provide full diagnostic evaluation of the vessels. If complete evaluation for vascular injury is indicated, suggest further evaluation with CTA or MRA. Electronically Signed By: Nancy hanks [place] - [facility] 03/03/2024 16:51:42 Problems Name Problem SNOMED Code Status Onset Date Resolution Date Notes Provider Name and Address Organization Details Recorded Time Difficult y speaking Active 03/19/ 2015 Hoarseness ; Note: Date Diagnosed: 06/30/2014 5:37 PM (784.49) Voice disturbanc e, unspecifie d; Note: Date Diagnosed: 06/09/2014 2:02 PM (784.40) ; Start Date : 06/09/2014 DARNELL ALARCON MD [address] [facility], [place], [address] , [place] - [facility] 4 23:36:33 Dysphonia 09880160 Active 2014 Unspecifie d voice and resonance disorder; Note: Date Diagnosed: 01/11/2015 1:58 PM (R49.9) [mapped from ICD9 code: 784.40] DARNELL ALARCON MD [address] [facility] [address] [address], [place], [address] , [place] - [facility] 4 23:36:39 Finding of resonance of voice 043685395 Active 2014 Unspecifie d voice and resonance disorder; Note: Date Diagnosed: 01/11/2015 1:58 PM (R49.9) [mapped from ICD9 code: 784.40] Not Available [facility] 4 02:56:28 Hypogloss al nerve palsy 605127603 Active 2023 DARNELL ALARCON MD [address] [facility],[place] [address], [place], [address] , [place] - [facility] 4 14:40:28 Candidias is of mouth 24048134 Active 2023 DARNELL ALARCON MD [address] [facility],[place] [address], [place], [address] , [place] - [facility] [place] 4 23:36:21 Problem Notes None recorded. Procedures Surgical History Date Name Laterality Status Provider Name and Address Organization Details Recorded Time 03/15/20 24 Telehealth completed DARNELL ALARCON MD [address] [facility] [address] [facility], [place], [address], [place] - [facility] [place] 03/14/2024 23:35:34 02/10/20 24 FOL_DP completed DARNELL ALARCON MD [address], [address], [place] - [facility] 02/10/2024 09:33:36 operation on carotid artery completed Chinyere Chapman [place] - [facility] 02/10/2024 14:34:59 Hysterectomy completed Chinyere Chapman [place] - [facility] 02/10/2024 14:35:16 Imaging Results None recorded. Procedure Notes None recorded. Medical Equipment None Reported. Allergies Allergen ID Allergen Name Allergen Category Reaction Reaction Severity Criticality Documentation Date Start Date Code Code System Note Provider Name and Address Organization Details Recorded Time 30504 bupropion hydrochlo ride medicatio n hives Not available Not available 08/26/202386740 4 RxNorm React ion: skin rashe s, hives ;; Not Available [facility] 4 01:04:10 [id number] Substance with sulfonami de structure and antibacte rial mechanism of action (substanc e) medicatio n hives Not available Not available 08/26/2023 99012 8003 SNOMED React ion: hives ;; Not Available [facility] 4 01:04:12 Medications Name Sig Start Date [...] mg tablet 02/09 completed Medicati on ID: 00467 Du ration Value: 14 Brand Name: hydrocod [...] mg tablet 02/09 completed Medicati on ID: 81019 Du ration Value: 14 Brand Name: tramadol [...] mcg tablet 02/09 completed Medicati on ID: 78626 Du ration Value: 30 Brand Name: Synthroi [...] release tablet 02/09 completed Medicati on ID: 89132 Du ration Value: 7 Brand Name: morphine Send Method: E-Prescr ibed Sub s Allowed: subs OK Speci al Instruct ion: TAKE 1 TABLET BY MOUTH 3 TIMES A DAY NEEDED Xavier Mckenzieic Name: morphine Not Available Not Available Not Available diazepam 5 mg tablet 02/09 completed Medicati on ID: 72038 Du ration Value: 23 Brand Name: diazepam Send Method: E-Prescr ibed Sub s Allowed: subs OK Speci al Instruct ion: TAKE 1 TABLET BY MOUTH TWICE A DAY Medi cationGe nericNam e: diazepam Not Available Not Available Not Available Vitamin B-12 1,000 mcg tablet 02/09 completed Medicati on ID: 44040 Du ration Value: 30 Brand Name: Vitamin [...] inhalatio n 02/09 completed Medicati on ID: 90399 Du ration Value: 30 Brand Name: Breo Ellipta Send Method: E-Prescr ibed Sub s Allowed: subs OK Speci al Instruct ion: INHALE 1 PUFF EVERY DAY Medi cationGe nericNam e: Breo Ellipta Not Available Not Available Not Available Anoro Ellipta 62.5 mcg-25 mcg/actua tion powder for inhalatio n 02/09 completed Medicati on ID: 64273 Du ration Value: 30 Brand Name: Anoro Ellipta Send Method: E-Prescr ibed Sub s Allowed: subs OK Speci al Instruct ion: INHALE 1 PUFF EVERY DAY Medi cationGe nericNam e: Anoro Ellipta Not Available Not Available Not Available Repatha SureClick 140 mg/mL subcutane ous pen injector INJECT 1 PEN SUBCUTAN EOUSLY EVERY 2 WEEKS active Not Available Not Available No t Available Sadileyara Ellipta 200 mcg-62.5 mcg-25 mcg powder for inhalatio n INHALE 1 PUFF DAILY active Not Available Not Available No t Available Vitals Date Recorded Body height Body mass index (BMI) Body weight Provider Name and Address Organization Details Last Updated DateTime 02/10/2024 151.13 cm 29.8 kg/m2 65712.86 g Chinyere Chapman [place] - [facility] 02/10/2024 14:34:36 Social History None recorded. Functional [...] Diagnosis SNOMED-CT Code Diagnosis ICD10 Code Diagnosis IMO Codes Diagnosis Note [id number] DARNELL ALARCON MD [facility] [address] [address] 02/10/2024 13:42:52 02/10/2024 14:50:08 Hypoglossal nerve palsy 339248342 G52.3 right hypoglossa l weakness with atrophy Candidiasis of mouth 797 57298 B37.0 [id number] DARNELL ALARCON MD [facility] [address] [address] 03/15/2024 15:30:18 03/15/2024 16:18:03 Candidiasis of mouth 87285049 B37.0 Dysphonia 71101661 R49.9 Health Concerns Section Related Observation LastModified by Organization Detai ls LastModified Time None Recorded Concern Status LastModified by Organization Details LastModified Time None Recorded Advance Directives Directive None Recorded Payers Insurance Date Sequence Insurance Name Policy Number Policy Che Covered Member ID Che Member ID Guarantor Name 03/14/2024 1 [place]ICARE B-[place]: [facility] [employer] Leah Finch [id number] Leah Finch Notes Date Note Type Note Provider Name and Address Organization Details Recorded Time 02/10/2024 text/html ROS as noted in the HPI speech, voice change 08/2023 [facility] woke her voice was disrupted. had some bloody mucus for a few daystongue dev to right after surgerystill feels like there is slurring of wordsno brain imagingtaste disturbance 11/15/[address] Jacobs, benign DARNELL ALARCON MD [address] [place] [address], [phone], [place] - [facility] 02/10/2024 14:50:04 03/15/2024 text/html ROS as noted in the HPI speech, voice changefeels the nystatin has resulted in a slight improvementhas an additional concern of inability of blowing nose.currently is caring for her mother with dementia at her homehas not been using her inhaler much lately 08/2023 R CEAeLnoreu at [facility] woke her voice was disrupted. had some bloody mucus for a few daystongue dev to right after surgerystill feels like there is slurring of wordsno brain imagingtaste disturbance PV 02/10/24 [place] - thrush rx nystatin. right hypoglossal weakness with atrophy, MRI brain requested 02/26/2024 [facility] of T2 prolongation and white matter. No acute or subacute infarct, mass, hemorrhage or other intracranial abnormality. The mild T2 hyperintense foci in the white matter most likely reflect chronic small vessel disease. 11/15/[address] Jacobs, benign DARNELL ALARCON MD [address] [place] [address], [address], [place] - [facility] 03/15/2024 15:42:58 OBGyn Episode No OBEpisode recorded.
== END 2025-02-25 09:47 | disposition home or self-care (01) ==
LOC: HO.CT 09:46
PROVIDERS: PCP Internal Medicine; Visit Provider Physician Assistant Medical
DX: Z12.2 Encounter for screening for malignant neoplasm of respiratory organs (principal); F17.210 Nicotine dependence, cigarettes, uncomplicated
CPT/HCPCS: 71271; G0296

== ENCOUNTER → 2025-02-25 10:03 | Outpatient (BNV) | payer MEDICARE, SELFPAY | PROVIDERS: PCP Internal Medicine; Visit Provider Radiology Diagnostic Radiology | DX: F17.210 Nicotine dependence, cigarettes, uncomplicated (principal) | CPT/HCPCS: 71271 ==